=== PATIENT | male | born 1975 ===

== ENCOUNTER 2020-08-29 15:34 | Emergency (ER) | payer MEDICARE, MEDICAID, SELFPAY ==
--- NOTE | ~2020-08-29 | XR_ITS ---
EXAMINATION: XR HAND, RIGHT CLINICAL INFORMATION: Infection. Evaluate for osteomyelitis, foreign body. COMPARISON: Right hand radiographs dated 12/19/2018. TECHNIQUE: PA, lateral, and oblique views of the right hand. FINDINGS: No acute fracture or dislocation. Normal carpal alignment. No osseous erosion or periosteal reaction. No abnormal soft tissue calcification. No radiopaque foreign body. Soft tissue swelling interposed between the 1st and 2nd metacarpal. No joint space narrowing or marginal osteophytes. XR/XR hand RT min 3V IMPRESSION: Soft tissue swelling between the 1st and 2nd metacarpals. No radiopaque foreign body. No adjacent osseous abnormality to suggest acute osteomyelitis. Early osteomyelitis may be occult on plain radiographs and if there is clinical concern, MR of the hand without and with contrast could help further evaluate.
[2020-08-29 15:39] VITALS: BP 133/85; PULSE 114; RESP 20; TEMP 36.8; O2SAT 98; BMI 29.7
[2020-08-29] MEDS: Lidocaine HCl 1 % MPF 5 ML VIAL SUBCUT ×2 (17:24→18:23)
--- NOTE | 2020-08-29 18:01 | ED.SKABFB ---
HPI - Skin/Abscess/Foreign Bdy General Chief complaint: Skin/Abscess/Foreign Body Stated complaint: hand swelling Time Seen by Provider: 08/29/20 16:12 History of Present Illness HPI narrative: Patient complains of redness pain and swelling to the back of the right hand with no fever chills, he is IV drug user who injected in that spot several days Related Data Home Medications Medication Instructions Recorded Confirmed hydroxyzine HCl 25 mg tablet mg PO 05/14/20 ibuprofen 600 mg tablet mg PO 05/14/20 pantoprazole 40 mg tablet,delayed mg PO 05/14/20 release Previous Rx's Medication Instructions Recorded clindamycin HCl 300 mg PO Q6H 7 Days #28 cap 08/29/20 doxycycline hyclate 100 mg PO BID 7 Days #14 cap 08/29/20 sulfamethoxazole-trimethoprim 1 tab PO BID #14 tab 09/09/20 [Bactrim DS] Allergies Allergy/AdvReac Type Severity Reaction Status Date / Time No Known Allergies Allergy Verified 09/09/20 19:38 [No Known Allergies*] Review of Systems Review of Systems: Positive for painful redness and swelling to the back of the right hand No fevers no chills no dizziness no weakness no headache no neck pain no chest pain no shortness of breath no numbness weakness or tingling no other rash Yes all other systems are reviewed and are negative PMFSH Past Medical History PMFSH Narrative: Patient is daily IV drug user Source: nursing notes reviewed Medical History Panic disorder Surgical History History of appendectomy Family History Family History Mother No problems noted. Father No problems noted. Social History Social History Alcohol intake: never Patient Tobacco Use Status: Current everyday Tobacco user Use of substances other than those prescribed or required for medical reasons: Yes Substance Use Type: Crack/Cocaine Advance Directives: No Advance Directives Information Provided: No Physical Exam Vital Signs: Vital Signs: Last Vital Signs Temp 98.2 F 08/29/20 15:39 Pulse 114 H 08/29/20 15:39 Resp 20 08/29/20 15:39 BP 133/85 08/29/20 15:39 Pulse Ox 98 08/29/20 15:39 Body Mass Index 29.7 General appearance is no acute distress Head is normocephalic atraumatic Neck is supple Respiratory no distress Extremities full range of motion x4 Right hand the dorsum of the hand is red and swollen with some feeling of fluctuance There is full range of motion in all fingers and in the wrist There is no lymphangitis Course Course Course Narrative: Case discussed with Dr. Cruz who agreed drain abscess and trial of oral antibiotics, no evidence of tenosynovitis X-ray did not show any evidence of osteomyelitis or gas Wound procedure the right hand dorsal abscess is cleansed with Betadine Anesthesia 8 cc 1% lidocaine A 1 cm incision was made with discharge of pus, loculations were broken up with forceps Packing was placed and dressing was applied Discharge Plan Discharge Clinical Impression: Cellulitis, Abscess of right hand Patient Disposition: Home, Self-Care Additional Instructions: Return to ER in 2 days, Monday for a recheck of the wound and removal of packing Return any time for spreading redness, worse pain and swelling, fever, any worse condition any sign of any worse infection any concerns You got a tetanus shot Prescriptions: New clindamycin HCl 300 mg capsule 300 mg PO Q6H 7 Days Qty: 28 RF: 0 doxycycline hyclate 100 mg capsule 100 mg PO BID 7 Days Qty: 14 RF: 0 No Action sulfamethoxazole-trimethoprim [Bactrim DS] 800-160 mg tablet 1 tab PO BID Qty: 14 RF: 0 Interventions: ED Discharge Assessment Last Done: 08/29/20 18:30 Discharge Date/Time: 08/29/20 18:30
[2020-08-29] MEDS: Diphth,Pertus(ACell),Tet Adult 0.5 ML SYRINGE IM (18:23)
[2020-08-29] MEDS: Ibuprofen 600 MG TABLET PO (18:23)
== END 2020-08-29 18:30 | disposition home or self-care (01) ==
PROVIDERS: Emergency Provider Internal Medicine
DX: L02.511 Cutaneous abscess of right hand (principal); L03.113 Cellulitis of right upper limb; M25.441 Effusion, right hand; F11.10 Opioid abuse, uncomplicated; F17.200 Nicotine dependence, unspecified, uncomplicated; Z79.899 Other long term (current) drug therapy; Z71.6 Tobacco abuse counseling
CPT/HCPCS: 10060; 73130; 87071; 87205; 90471; 90715; 96372; 99284

== ENCOUNTER 2020-09-09 17:30 | Emergency (ER) | payer MEDICARE, MEDICAID, SELFPAY ==
[2020-09-09 19:34] VITALS: BP 133/93; PULSE 93; RESP 16; TEMP 36.3; O2SAT 96; BMI 29.9
--- NOTE | 2020-09-09 20:02 | ED.SKABFB ---
HPI - Skin/Abscess/Foreign Bdy General Chief complaint: Skin/Abscess/Foreign Body Stated complaint: cysts? Time Seen by Provider: 09/09/20 19:57 Source: patient Mode of arrival: ambulatory Limitations: no limitations History of Present Illness HPI narrative: patient shoots heroin, still using seen last week and had multiple I&D. Now for wound check and a new area that he used. complaint: abscess/boil Onset (ago): week(s) Tetanus up to date: yes Location: LUE and RUE Severity: mild Relieving factors: none Exacerbating factors: none Related Data Home Medications Medication Instructions Recorded Confirmed hydroxyzine HCl 25 mg tablet mg PO 05/14/20 ibuprofen 600 mg tablet mg PO 05/14/20 pantoprazole 40 mg tablet,delayed mg PO 05/14/20 release Previous Rx's Medication Instructions Recorded clindamycin HCl 300 mg PO Q6H 7 Days #28 cap 08/29/20 doxycycline hyclate 100 mg PO BID 7 Days #14 cap 08/29/20 sulfamethoxazole-trimethoprim 1 tab PO BID #14 tab 09/09/20 [Bactrim DS] Allergies Allergy/AdvReac Type Severity Reaction Status Date / Time No Known Allergies Allergy Verified 09/09/20 19:38 [No Known Allergies*] Review of Systems Constitutional: Constitutional: Reports no additional constitutional complaints Eyes: Eyes: Reports no additional eye complaints ENT: Denies dizziness Cardiovascular: Cardiovascular: Reports no additional cardiovascular complaints Respiratory: Respiratory: Reports as per HPI Gastrointestinal: Gastrointestinal: Reports no additional gastrointestinal complaints Musculoskeletal: Musculoskeletal: Reports no additional musculoskeletal complaints Integumentary/Breasts: Skin/Breast: Denies rash Neurologic: Reports system reviewed and no additional complaints, except as documented, Denies dizziness and Denies Sensory deficit (Neuro) Psychiatric: Psychiatric: Denies anxiety PMF Past Medical History Medical History Panic disorder Surgical History History of appendectomy Family History Family History Mother No problems noted. Father No problems noted. Social History Social History Alcohol intake: never Advance Directives: No Advance Directives Information Provided: No Physical Exam Vital Signs: Vital Signs: Last Vital Signs Temp 97.3 F 09/09/20 19:34 Pulse 93 09/09/20 19:34 Resp 16 09/09/20 19:34 BP 133/93 H 09/09/20 19:34 Pulse Ox 96 09/09/20 19:34 Body Mass Index 29.9 Const: General: healthy appearing Nutritional Appearance: average body habitus Orientation/consciousness: oriented to person and patient oriented x3 Limitations: no limitations HENMT: Head: Yes normal to inspection Ears: external ears normal General nose exam: Normal external nose present Mouth: Normal oral and palatal mucosa present and oropharynx normal Throat: Yes posterior oropharynx normal Eyes: General: appearance normal, both eyes and all related structures Neck: Other: supple Neck: Yes normal visual inspection Chest: Chest palpation & inspection: normal inspection of the chest Resp: Auscultation: clear to auscultation bilaterally Cardio: Jugular venous distension: no JVD Rate: regular rate Rhythm: regular rhythm Heart sounds: S1 normal heart sound present and S2 normal heart sound present GI: Inspection: Yes normal to inspection Palpation (GI): Soft to palpation, nontender and No hepatosplenomegaly present Auscultation: normal bowel sounds : General: Yes no CVA tenderness Back/Spine/Pelvis: Back: no CVA tenderness Skin: Other: right hand with small serous drainging wound no pus, left forearm with likely hematoma, no fluctuance Neuro: General: oriented to person and patient oriented x3 Cranial nerves: Yes CN's II-XII intact bilaterally Motor exam (neuro): 5/5 motor strength present throughout Sensory Exam: No Sensory deficit (Neuro) Extrem: General: Yes normal to inspection Psych: Appearance: grossly normal Course Course Course Narrative: bedside ultrasound showed no collection, no abscess. Will dc patient on bactrim Discharge Plan Discharge Clinical Impression: Intravenous drug abuse Patient Disposition: Home, Self-Care Prescriptions: New sulfamethoxazole-trimethoprim [Bactrim DS] 800-160 mg tablet 1 tab PO BID Qty: 14 RF: 0 No Action clindamycin HCl 300 mg capsule 300 mg PO Q6H 7 Days Qty: 28 RF: 0 doxycycline hyclate 100 mg capsule 100 mg PO BID 7 Days Qty: 14 RF: 0 Referrals: [facility] [Primary Care Provider] - 1 week
== END 2020-09-09 20:42 | disposition home or self-care (01) ==
PROVIDERS: Emergency Provider Emergency Medicine
DX: F19.10 Other psychoactive substance abuse, uncomplicated (principal); F17.210 Nicotine dependence, cigarettes, uncomplicated
CPT/HCPCS: 99283; 99284

== ENCOUNTER 2021-08-25 09:33 | Outpatient (REF) | payer MEDICARE, MEDICAID, SELFPAY ==
--- NOTE | ~2021-08-25 | XR_ITS ---
EXAMINATION: XR ABDOMEN KUB CLINICAL INDICATION: Renal calculus. COMPARISON: 07/26/2017. TECHNIQUE: AP view of the abdomen. FINDINGS: No convincing evidence of radiopaque calculus. Exam is limited from overlying stool in the bowel. Surgical clips in the right upper quadrant. XR/XR KUB IMPRESSION: No evidence for radiopaque calculus overlying the kidneys though limited visualization from overlying stool.
[2021-08-25 10:55] LABS: Appearance Urine HAZY; Color Urine YELLOW; Glucose Urine UA NEG (NEG); Leukocyte Esterase Urine NEG (NEG); Nitrite Urine NEG (NEG); UACC Culture Trigger NO; Urine Blood TRACE (NEG); Urine Ketones NEG (NEG); Urine Protein NEG (NEG-TRACE)
[2021-08-25 11:05] LABS: Hematocrit 47.1 % (42.0-52.0); Hemoglobin 15.6 g/dl (14.0-18.0); Mean Corpuscular HGB Conc 33.1 g/dl (31.0-36.0); Mean Corpuscular Hemoglobin 30.8 pg (27.0-33.0); Mean Corpuscular Volume 92.9 fL (80.0-98.0); Platelet Count 254 X10*3/uL (160-400); Red Blood Count 5.07 X10*6/uL (4.60-5.80); Red Cell Distribution Width 12.4 % (11.0-16.0); White Blood Count 5.1 X10*3/uL (4.8-10.8)
[2021-08-25 11:23] LABS: RBC Urine 0-2 /HPF (0); WBC Urine 0-2 /HPF (0-4)
[2021-08-25 11:51] LABS: Alanine Aminotransferase 228 U/L (0-40); Albumin Level 4.7 g/dL (3.5-5.0); Alkaline Phosphatase 224 U/L (39-117); Anion Gap 14 (12-20); Aspartate Amino Transferase 141 U/L (5-37); Bilirubin Direct 0.4 mg/dL (0.0-0.5); Bilirubin Total 0.8 mg/dL (0.0-1.0); Blood Urea Nitrogen 15 mg/dL (9-16); Calcium 10.2 mg/dL (8.4-10.2); Carbon Dioxide 28 mmol/L (22-29); Chloride 100 mmol/L (96-108); Estimated Glomerular Filt Rate > 60; Glucose Random 109 mg/dL (60-115); Potassium 4.4 mmol/L (3.3-5.1); Sodium 138 mmol/L (135-145); Total Protein 8.6 g/dL (6.5-8.0)
== END 2021-08-25 09:34 | disposition home or self-care (01) ==
LOC: HO.XRAY 09:33
PROVIDERS: PCP Physician Assistant; Visit Provider Physician Assistant
DX: N20.0 Calculus of kidney (principal)
CPT/HCPCS: 36415; 74018; 80048; 80076; 81001; 85027

== ENCOUNTER 2023-05-10 16:08 | Outpatient (AMB) | payer OTHER, SELFPAY ==
[2023-05-10 16:04] VITALS: BMI 31.6
--- NOTE | 2023-05-10 16:04 | MHC.PC.OV ---
Vital Signs 05/10/23 16:04 Height 5 ft 5 in Weight 190 lb BMI 31.6 Intake Visit Reasons: f/u Anxiety/ COVID + Intake Note: Telehealth video conference with the patient for routine follow-up. Unable to come to the office due to COVID concerns. Director Of Individual Giving Required: No Accompanied by: Spouse Allergies No Known Allergies [No Known Allergies*] Allergy (Verified 05/10/23 16:40) Medication List - Last Reconciled 05/10/23 by Contreras Nielson PA-C citalopram (Celexa) 10 mg PO DAILY 90 days clonazepam 1 mg PO BEDTIME 14 days hydroxyzine HCl 25 mg PO QID ibuprofen 600 mg PO BID PRN 30 days nicotine (polacrilex) mg PO nirmatrelvir-ritonavir 300 mg (150 mg x 2)-100 mg (Paxlovid) take TWO 150 mg tablets of nirmatrelvir with ONE 100 mg tablet of ritonavir twice daily for 5 days PO tamsulosin 0.4 mg PO DAILY 30 days tramadol 50 mg PO BID 5 days Tobacco use date assessed: 05/10/23 Dental Screening Dental Screen Date: 05/10/23 Did you have a dental visit in the last 12 months?: Yes Did you have a dental problem in the last 6 months where you did not have access to dental care?: No Was dental information given to patient?: Patient has dentist HPI f/u Anxiety/ COVID + HPI Details Patient is a 47-year-old male being evaluated today via telephone conference. Recently had COVID in his recovering. Patient has a past medical history significant for generalized anxiety disorder, history of IV drug use, Nephrolithiasis, tobacco dependence,? major depressive disorder, GERD. --Concern> he reports he has a history of low testosterone in the past and was on topical testosterone replacement. He would like to see Urology again to discuss restarting testosterone replacement. Of note has been on chronic opiate for many years now which is likely the reason for his low testosterone. Will recheck testosterone levels Opiate dependency: Now recovery over last 2 months in is going to a methadone clinic. .. REMIGIO: was seeing a mental health therapist last year for short amount of time though has lost follow up. He is on clonazepam 1 mg PRN which he reports his working well for his anxiety. Asking for more though does understand did dependency to benzodiazepines. We will restart sertraline 50 mg and Seroquel 50 mg for sleep. He is interested in restarting mental health therapy and perhaps seeing a psychiatrist in near future. [facility] Medical History (Updated 05/10/23 @ 16:48 by Contreras Nielson PA-C) Elevated liver enzymes Panic disorder Surgical History History of appendectomy Family History Mother No problems noted. Father Prostate cancer Paternal Grandfather Prostate cancer Social History Housing: House Alcohol intake: never Patient Tobacco Use Status: Current everyday Tobacco user Tobacco use type: Cigarette Cigarettes Per Day: 4 e-Cigarette/Vaping Use: Never Used Second Hand Smoke Exposure: Yes Substance Use Type: Crack/Cocaine service: No Current occupational status: disabled Cognitive needs: No Hearing needs: No Vision needs: No Questionnaire PHQ-9 Over the last 2 weeks, how often have you been bothered by any of the following problems? 1. Little interest or pleasure in doing things: nearly every day 2. Feeling down, depressed, or hopeless: nearly every day 3. Trouble falling or staying asleep, or sleeping too much: nearly every day 4. Feeling tired or having little energy: nearly every day 5. Poor appetite or overeating: more than half the days 6. Feeling bad about yourself - or that you are a failure or have let yourself or your family down: more than half the days 7. Trouble concentrating on things, such as reading the newspaper or watching television: nearly every day 8. Moving or speaking so slowly that other people could have noticed. Or the opposite - being so fidgety or restless that you have been moving around a lot more than usual: more than half the days 9. Thoughts that you would be better off or of hurting yourself in some way: several days Total score: 22 Depression Screening Interpretation: Positive Depression Screening Follow-up: Existing condition and Community Mental Health Worker F/U Depression Screening Done: Yes 17844 - PHQ-9 Billing: Yes Source: Developed by Drs. Bruce Aguayo, Tracey Orlando, Ori Connell and colleagues, with an educational kyle from [employer]. Thrive Questionnaire Date Thrive assessed: 05/10/23 I am a: Patient What is your living situation today?: I have a steady place to live Within the past 12 months, did the food you bought not last and you didn't have the money to get more?: Never true Within the past 12 months, did you worry whether your food would run out before you got money to buy more?: Never true Do you have trouble paying for medicines?: No Do you have trouble getting transportation to medical appointments?: No Do you have trouble paying your heating and electricity bill?: No Do you have trouble taking care of your child, family member or friend?: No Do you have trouble with day-to-day activities such as bathing, preparing meals, shopping, managing finances, etc.?: No Are you currently unemployed and looking for a job?: No Are you interested in more education?: No Please select the resources that you would like help with: None Currently or been in a relationship where the following occur: no concerns reported THRIVE Score: 0 AUDIT C Alcohol Use Questionnaire (AUDIT-C) 1. How often do you have a drink containing alcohol?: Never 3. How often do you have six or more drinks on one occasion?: Never Total Score: 0 REMIGIO-7 AMB Questionnaire REMIGIO-7 Date REMIGIO - 7 assessed: 05/10/23 Feeling nervous, anxious, or on edge: 3 = Nearly every day Not being able to stop or control worryin = Nearly every day Worrying too much about different things: 3 = Nearly every day Trouble relaxin = Nearly every day Being so restless that it is hard to sit still: 3 = Nearly every day Becoming easily annoyed or irritable: 2 = More than half the days Feeling afraid as if something awful might happen: 3 = Nearly every day Total REMIGIO-7 score (0-4 normal; 5-9 mild; 10-14 moderate; 15-21 severe): 20 Source: Developed by Tracey Quispe, Ori Connell and colleagues, with an educational kyle from [employer]. REMIGIO-7 Assessment Billing REMIGIO-7 Assessment Tool: REMIGIO-7 Assessment 10271 Review of Systems Const Denies headache(s) Eyes Denies loss of vision ENT Denies vertigo, Denies dizziness, Denies headache(s) and Denies sore throat Card Denies chest pain, Denies leg edema and Denies lightheadedness Resp Reports cough, Denies hemoptysis and Denies wheezing GI Denies abdominal pain, Denies melena, Denies constipation, Denies diarrhea and Denies vomiting Denies dysuria, Denies urinary frequency and Denies urinary urgency Musc Denies arthralgias, Denies joint swelling, Denies numbness and Denies tingling Neuro Denies behavioral changes, Denies vertigo, Denies dizziness, Denies headache(s), Denies loss of vision, Denies memory loss, Denies numbness and Denies tingling Psych Denies anxiety, Denies behavioral changes, Reports depression, Reports difficulty concentrating, Reports irritability, Denies memory loss and Reports panic attacks Roberto/Lymph Denies easy bleeding and Denies easy bruising Aller/Immun Denies wheezing Physical exam (Primary Care) BMI result Body Mass Index 31.6 Tobacco/Smoking Status: Tobacco use Status Tobacco use date assessed 05/10/23 05/10/23 16:15 Patient Tobacco Use Status Current everyday Tobacco 05/10/23 16:07 Tobacco use type Cigarette 05/10/23 16:07 e-Cigarette/Vaping Use Never Used 05/10/23 16:07 Are you ready to quit: No Tobacco cessation counseling provided: Yes Items discussed: Nicotine replacement Relapse Prevention: discussed the importance of a supportive environment, discussed negative mood or depression after quitting, weight gain after smoking is common and discussed dietary, exercise and/or lifestyle changes Number of minutes spent counselin CPT code: 15547 - 4-10 Minutes PHQ-9: PHQ-9 Score PHQ-9: Total score 22 05/10/23 16:54 Depression Screening Interpretation: Positive Depression Screening Follow-up: Existing condition and Community Mental Health Worker F/U Thrive Assessment: Date of Thrive Assessment Date Thrive assessed 05/10/23 05/10/23 16:07 Currently or been in a relationship where the following occur: no concerns reported Telehealth Telehealth Location of provider rendering services: practice address Location of patient: address on file Patient Identification confirmed using: Name, : Yes Telehealth method: video Patient verbally consented to treatment: Yes Patient verbally consented to billing insurance company: Yes Patient informed of any privacy concerns related to visit: Yes Minutes spent on Phone/Video with Pt.: 15 Assessment and Plan Assessment & Plan (1) MDD (major depressive disorder), recurrent episode, moderate: Code(s): F33.1 - Major depressive disorder, recurrent, moderate Plan: Patient's PHQ-9 score positive for depression which has been existing condition for him. He is interested in cognitive behavior therapy and restarting SSRI therapy. Will restart Zoloft 50 mg daily for better mood control. (2) Panic disorder: Comment: 40 min reviewing chart evaluating patient and documenting Code(s): F41.0 - Panic disorder [episodic paroxysmal anxiety] Plan: He reports he continues to episodic episodes of high anxiety. He does report clonazepam is helpful in his asking for more though we had long discussion about dependency in his past history of substance use disorder and patient does understand. Will only give him 14 tablets at a time to use on a very limited emergency use basis. (3) REMIGIO (generalized anxiety disorder): Code(s): F41.1 - Generalized anxiety disorder Plan: Patient continues to suffer with anxiety. Remigio 7 score positive for anxiety which has been existing condition for him. He is interested in cognitive behavioral therapy and restarting SSRI therapy. Was also given Seroquel at night to help him sleep which was effective. (4) Hypogonadism male: Code(s): E29.1 - Testicular hypofunction Plan: Reports he has been told he has low testosterone. Was previously on testosterone topical treatment. Would like to be referred back to urologist to start up testosterone treatment again. Low testosterone levels likely related to his chronic opiate use (5) Opiate dependence: Code(s): F11.20 - Opioid dependence, uncomplicated Qualifiers: Substance use status: in remission Qualified Code(s): F11.21 - Opioid dependence, in remission Plan: Reports he has been clean for street drugs over the last 2 months. Now on methadone clinic (6) Tobacco dependence: Code(s): F17.200 - Nicotine dependence, unspecified, uncomplicated Plan: Patient continues to smoke and does understand he needs to quit. He has found it difficult to do so. Does have nicotine replacement available to him. Orders: Orders Testosterone, Free/Total 02/07/24 E29.1 - Testicular hypofunction Comprehensive [place]. Panel Fast 05/10/23 Z13.1 - Encounter for screening for diabetes mellitus Prostate Specific Antigen Scr 05/10/23 Z12.5 - Encounter for screening for malignant neoplasm of prostate, Z13.1 - Encounter for screening for diabetes mellitus Referrals Counseling Referral F41.1 - Generalized anxiety disorder Urology Referral E29.1 - Testicular hypofunction Medications: New sertraline 50 mg PO DAILY 90 days 90 tabs 1RF F41.1 - Generalized anxiety disorder quetiapine (Seroquel) 50 mg PO BEDTIME 90 days 90 tabs 1RF F41.1 - Generalized anxiety disorder Refilled clonazepam administer 30 minutes before bedtime 1 mg PO BEDTIME 14 days 14 tabs 1RF F41.1 - Generalized anxiety disorder Discontinued citalopram (Celexa) Discontinued Reason: Doctor's Order 10 mg PO DAILY 90 days 90 tabs 1RF F41.1 - Generalized anxiety disorder tramadol Discontinued Reason: Doctor's Order 50 mg PO BID 5 days 10 tabs 0RF pain N20.0 - Calculus of kidney Coding Level of Care Code Tele New Pt Level 4 (69601) Diagnoses MDD (major depressive disorder), recurrent episode, moderate F33.1 Panic disorder F41.0 REMIGIO (generalized anxiety disorder) F41.1 Hypogonadism male E29.1 Opioid dependence in remission F11.21 Substance use status: in remission Tobacco dependence F17.200 Additional Codes REMIGIO-7 Assessment Billing - REMIGIO-7 Assessment Tool: REMIGIO-7 Assessment 57469 ([id number]) Vital Signs *Quality* - CPT code: 05140 - 4-10 Minutes ([id number])
== END 2023-05-10 17:01 | disposition home or self-care (01) ==
LOC: HO.HMGH 16:08
PROVIDERS: PCP Physician Assistant; Visit Provider Physician Assistant
DX: E29.1 Testicular hypofunction (principal); F33.1 Major depressive disorder, recurrent, moderate; F11.21 Opioid dependence, in remission; F41.0 Panic disorder [episodic paroxysmal anxiety]; F41.1 Generalized anxiety disorder; F17.210 Nicotine dependence, cigarettes, uncomplicated
CPT/HCPCS: 99214

== ENCOUNTER 2023-06-02 13:44 | Outpatient (REF) | payer OTHER, SELFPAY ==
[2023-06-02 15:24] LABS: Hematocrit 42.9 % (42.0-52.0); Hemoglobin 14.2 g/dl (14.0-18.0); Mean Corpuscular HGB Conc 33.1 g/dl (31.0-36.0); Mean Corpuscular Hemoglobin 30.6 pg (27.0-33.0); Mean Corpuscular Volume 92.5 fL (80.0-98.0); Mean Platelet Volume 11.1 fL (9.4-12.4); Platelet Count 226 X10*3/uL (160-400); Red Blood Count 4.64 X10*6/uL (4.60-5.80); Red Cell Distribution Width 13.1 % (11.0-16.0); White Blood Count 8.8 X10*3/uL (4.8-10.8)
[2023-06-02 15:37] LABS: Alanine Aminotransferase 65 U/L (0-40); Albumin Level 4.7 g/dL (3.5-5.0); Alkaline Phosphatase 135 U/L (39-117); Anion Gap 14 (12-20); Aspartate Amino Transferase 45 U/L (5-37); Bilirubin Total 0.5 mg/dL (0.0-1.0); Blood Urea Nitrogen 15 mg/dL (9-16); Calcium 10.1 mg/dL (8.4-10.2); Carbon Dioxide 31 mmol/L (22-29); Chloride 100 mmol/L (96-108); Estimated Glomerular Filt Rate > 60; Glucose Fasting 117 mg/dL (60-99); Potassium 4.1 mmol/L (3.3-5.1); Sodium 141 mmol/L (135-145); Total Protein 8.6 g/dL (6.5-8.0)
[2023-06-02 15:56] LABS: Prostate Specific Antigen Scr 0.97 ng/mL (<0.05-4.0)
[2023-06-03 03:38] LABS: Syphilis Screen Nonreactive (Nonreactive)
[2023-06-03 03:57] LABS: HIV AB/AG Nonreactive (Nonreactive); HIV Num 1 0.06 S/CO (0.00-0.99)
[2023-06-07 14:34] LABS: Testosterone, Free 6.5 pg/mL (35.0-155.0); Testosterone, Total 70 ng/dL (250-1100)
== END 2023-06-02 13:45 | disposition home or self-care (01) ==
LOC: HO.LAB 13:44
PROVIDERS: PCP Physician Assistant; Visit Provider Physician Assistant
DX: Z13.1 Encounter for screening for diabetes mellitus (principal); Z11.3 Encounter for screening for infections with a predominantly sexual mode of transmission; Z12.5 Encounter for screening for malignant neoplasm of prostate; N50.811 Right testicular pain; N50.812 Left testicular pain; E29.1 Testicular hypofunction
CPT/HCPCS: 36415; 80053; 84153; 84402; 84403; 85027; 86780; 87389

== ENCOUNTER 2023-06-07 14:02 | Emergency (ER) | payer OTHER, SELFPAY ==
--- NOTE | ~2023-06-07 | CT_ITS ---
EXAMINATION: CT ABDOMEN AND PELVIS WITHOUT CONTRAST CLINICAL INFORMATION: Left flank pain history of stone COMPARISON: [facility] radiograph from 08/25/2021, ultrasound abdomen from 09/01/2017 CT abdomen and pelvis from 12/22/2016 TECHNIQUE: Multidetector volumetric imaging was performed from the superior aspect of the liver through the pubic symphysis. Sagittal and coronal reformatted images were obtained on the technologist's workstation. This CT examination was performed using dose optimization techniques as appropriate, variously including the following: *Automated exposure control *Adjustment of mA and/or kV according to patient size (this includes techniques or standardized protocols for targeted exams where dose is matched to indication/reason for exam; i.e. extremities or head) *Use of iterative reconstruction technique DLP: 570 mGy-cm FINDINGS: LUNG BASES: Bibasilar atelectasis. No pneumothorax. No large pleural effusion. LIVER, GALLBLADDER, AND BILIARY TREE: Liver is borderline enlarged. Focal hypodense focus adjacent to the falciform ligament may reflect a region of focal fatty infiltration. No focal hepatic lesion or biliary ductal dilatation is present. The gallbladder is surgically absent. Common bile duct measures up to 11 mm. PANCREAS: Unremarkable. SPLEEN: Normal punctate calcified granuloma throughout the splenic parenchyma. ADRENAL GLANDS: Unremarkable. KIDNEYS AND URETERS: Right-sided nephrolithiasis the largest measuring up to 3 mm in the right renal interpolar/upper pole region without hydronephrosis. Left-sided nephrolithiasis measuring up to 2 mm without hydronephrosis. BLADDER: Unremarkable. GASTROINTESTINAL TRACT: Small hiatal hernia. Mild fecal loading of the colon. Few mildly prominent loops of small bowel in the left upper abdomen. The small and large bowel are unremarkable. The appendix is not definitively visualized.. ABDOMINAL WALL: Small hiatal hernia. Small fat filled bilateral inguinal hernias. LYMPH NODES: Multiple mildly prominent though nonenlarged bilateral inguinal and mesenteric lymph nodes are noted. No enlarged lymph nodes per size criteria. VASCULAR: Abdominal aorta is nonaneurysmal. PELVIC VISCERA: Prostate measures 3.9 cm with calcifications within its body. OSSEOUS STRUCTURES: Multilevel degenerative changes of the thoracolumbar and lumbosacral spine with large anterior spur along the anterior superior endplate of L4 CT/CT abdomen pelvis wo IV con IMPRESSION: 1. No acute process of the abdomen or pelvis identified. 2. Bilateral nephrolithiasis without hydronephrosis. 3. Few mildly prominent loops of small bowel in the left upper abdomen without evidence of obstruction. 4. Multiple mildly prominent though nonenlarged bilateral inguinal and mesenteric lymph nodes are noted. 5. Liver is borderline enlarged. Focal hypodense focus adjacent to the falciform ligament may reflect a region of focal fatty infiltration. 6. Status post cholecystectomy. Common bile duct measures up to 11 mm. 7. Prostate measures 3.9 cm with calcifications within its body. 8. Small hiatal hernia. Small fat filled bilateral inguinal hernias.
[2023-06-07 14:33] VITALS: BP 142/87; PULSE 90; RESP 18; TEMP 37.7; O2SAT 95; BMI 30.8
--- NOTE | 2023-06-07 14:44 | ED.GENADULT ---
HPI - General Adult General Chief complaint: Abdominal Pain Stated complaint: Abd pain, vomiting 3 days Time Seen by Provider: 06/07/23 20:02 Source: patient Mode of arrival: ambulatory Limitations: no limitations History of Present Illness HPI narrative: Patient vomiting for last 2 days able to hold down any food or liquids also complaining of pain in the left upper abdomen with history of kidney stone no flank no hematuria no dysuria no fever or chills Related Data Home Medications Medication Instructions Recorded Confirmed hydroxyzine HCl 25 mg tablet 25 mg PO QID 05/10/23 05/10/23 nicotine (polacrilex) 4 mg gum mg PO 05/10/23 05/10/23 Previous Rx's Medication Instructions Recorded ibuprofen 600 mg tablet 600 mg PO BID PRN pain 30 days #30 04/02/23 tabs tamsulosin 0.4 mg capsule 0.4 mg PO DAILY 30 days #30 caps 05/01/23 clonazepam 1 mg tablet 1 mg PO BEDTIME 14 days #14 tabs 05/10/23 quetiapine 50 mg tablet (Seroquel) 50 mg PO BEDTIME 90 days #90 tabs 05/10/23 sertraline 50 mg tablet 50 mg PO DAILY 90 days #90 tabs 05/10/23 dicyclomine 20 mg tablet 20 mg PO TID PRN abdominal pain 06/07/23 #15 tabs ondansetron 4 mg disintegrating 4 mg PO Q6-8H PRN nausea and 06/07/23 tablet vomiting #7 tabs amoxicillin 875 mg-potassium 1 tab PO BID 7 days #14 tabs 06/22/23 clavulanate 125 mg tablet prednisone 10 mg tablet 10 mg PO DIRECTED 9 days #18 06/22/23 tabs Allergies Allergy/AdvReac Type Severity Reaction Status Date / Time No Known Allergies Allergy Verified 06/19/23 16:22 [No Known Allergies*] Review of Systems Review of Systems: Yes all other systems are reviewed and are negative PMFSH Past Medical History Medical History Elevated liver enzymes Panic disorder Surgical History History of appendectomy Family History Family History Mother No problems noted. Father Prostate cancer Paternal Grandfather Prostate cancer Social History Social History Housing: House Alcohol intake: never Patient Tobacco Use Status: Current everyday Tobacco user Tobacco use type: Cigarette Cigarettes Per Day: 4 e-Cigarette/Vaping Use: Never Used Second Hand Smoke Exposure: Yes Substance Use Type: Crack/Cocaine Advance Directives: No Advance Directives Information Provided: No service: No Current occupational status: disabled Cognitive needs: No Hearing needs: No Vision needs: No Physical Exam ED Vital Signs: Vital Signs - 24 hr 06/07/23 14:33 06/07/23 20:12 06/07/23 23:04 Temperature 99.8 F 97.8 F 98.0 F Pulse Rate 90 72 71 Respiratory Rate 18 18 14 Blood Pressure 142/87 H 132/89 145/82 H Pulse Oximetry 95 97 100 Oxygen Delivery Method Room Air Room Air Room Air BMI result Body Mass Index 30.8 Appearance: Alert. Oriented X3. No acute distress. Eyes: No pallor or icterus ENT: Pharynx normal. Oral Mucosa moist Neck: Normal inspection. Neck supple. CVS: Normal heart rate and rhythm. Pulses normal. Respiratory: No respiratory distress. Equal air entry bilateral, no wheezing/rales/rhonchi Abdomen: Soft and tenderness left upper abdomen Bowel sounds are present, no mass palpable, no CVA tenderness Skin: Skin warm and dry. Normal skin color. Normal skin turgor. Extremities: No lower extremity edema. No calf tenderness Neuro: Oriented X 3. No motor deficit. Course Course Course Narrative: This is a rapid medical exam: Additional HPI, ROS, PE not included below will be deferred to primary provider. Complains of a 3 day history of nausea and vomiting with difficulty in tolerating p.o. intake with generalized abdominal pain. He also reports rhinorrhea and fever and feels as if he may have a sinus infection. He denies any shortness of breath, chest pain, constipation, diarrhea, melena, BRBPR, headache, vision changes Medications Administered Discontinued Medications Generic Name Dose Route Start Last Admin Trade Name Freq PRN Reason Stop Dose Admin Amoxicillin/Clavulanate Potassium 875 mg 06/07/23 23:58 06/08/23 00:02 Amoxicillin/Potassium Clav 875 Mg Tablet PO 06/07/23 23:59 875 mg ONCE ONE Administration Sodium Chloride 1,000 mls @ 999 mls/hr 06/07/23 20:55 06/07/23 23:00 Ns IV 06/07/23 21:55 Infused .Q1H1M ONE Infusion Ketorolac Tromethamine 30 mg 06/07/23 20:55 06/07/23 21:38 Ketorolac Tromethamine 30 Mg/Ml Vial IVPUSH 06/07/23 20:56 30 mg ONCE ONE Administration Ondansetron HCl 4 mg 06/07/23 20:55 06/07/23 21:37 Ondansetron Hcl 4 Mg/2 Ml Vial IVPUSH 06/07/23 20:56 4 mg ONCE ONE Administration Medical Decision Making Medical Decision Making [facility] Narrative: Patient has acute gastroenteritis with sinus infection CT scan negative for acute pathology discharge patient home on Augmentin for sinusitis and Zofran Differential Diagnosis Differential Diagnoses: The differential diagnosis associated with the presentation includes Lab Data [facility] Lab Attestation statement: I reviewed the patient's lab results. 06/07/23 16:59 06/07/23 15:50 Labs: Lab Results 06/07/23 06/07/23 06/07/23 Range/Units 14:47 15:50 16:59 WBC 4.4 L (4.8-10.8) X10*3/uL RBC 4.65 (4.60-5.80) X10*6/uL Hgb 14.2 (14.0-18.0) g/dl Hct 42.0 (42.0-52.0) % MCV 90.3 (80.0-98.0) fL MCH 30.5 (27.0-33.0) pg MCHC 33.8 (31.0-36.0) g/dl RDW 13.1 (11.0-16.0) % Plt Count 123 L D (160-400) X10*3/uL MPV 11.4 (9.4-12.4) fL Immature Gran % (Auto) 0.5 H (0.0-0.4) % Neut % (Auto) 67.8 (45-73) % Lymph % (Auto) 22.9 (20-40) % [place] % (Auto) 5.4 (2-11) % Eos % (Auto) 3.2 (0-4) % Baso % (Auto) 0.2 (0-2) % Lymph # (Auto) 1.0 L (1.2-4.9) X10*3/uL [place] # (Auto) 0.2 (0.1-1.2) X10*3/uL Eos # (Auto) 0.1 (0.0-0.4) X10*3/uL Baso # (Auto) 0.0 (0.0-0.2) X10*3/uL Abs Immat Gran (auto) 0.02 (0.00-0.03) X10*3/uL Absolute Neuts (auto) 3.0 (2.0-8.3) x10*3/uL Absolute Nucleated RBC 0.000 (0.0-0.012) X10*3/uL Nucleated RBC % (auto) 0.0 (0.0-0.2) /100WBC Smear Tech's Comments VERIFIED Sodium 137 (135-145) mmol/L Potassium 4.4 (3.3-5.1) mmol/L Chloride 105 (96-108) mmol/L Carbon Dioxide 25 (22-29) mmol/L Anion Gap 11 L (12-20) BUN 12 (9-16) mg/dL Creatinine 0.79 (0.5-1.4) mg/dL Estim Creat Clear Calc 113.9 Estimated GFR > 60 Fasting Glucose 100 H (60-99) mg/dL Calcium 9.3 D (8.4-10.2) mg/dL Magnesium 1.9 (1.6-2.6) mg/dL Total Bilirubin 0.5 (0.0-1.0) mg/dL AST 59 H (5-37) U/L ALT 73 H (0-40) U/L Alkaline Phosphatase 127 H (39-117) U/L Total Protein 7.6 (6.5-8.0) g/dL Albumin 4.1 (3.5-5.0) g/dL Influenza Type A (PCR) NEGATIVE (Negative) Influenza Type B (PCR) NEGATIVE (Negative) RSV RNA Qual (PCR) NEGATIVE (Negative) SARS-CoV-2 RNA (RT-PCR) NEGATIVE (Negative) Discharge Plan Discharge Clinical Impression: Nausea & vomiting, Sinusitis, acute Patient Disposition: Home, Self-Care Instructions: Rhinosinusitis (ED), Acute Nausea and Vomiting (ED) Additional Instructions: Drink plenty of fluids Take medicine for nausea as prescribed as needed Medicine for abdominal cramps as prescribed Follow with PCP if not better Prescriptions: New dicyclomine 20 mg tablet 20 mg PO TID PRN (Reason: abdominal pain) Qty: 15 0RF ondansetron 4 mg tablet,disintegrating 4 mg PO Q6-8H PRN (Reason: nausea and vomiting) Qty: 7 0RF No Action ibuprofen 600 mg tablet 600 mg PO BID PRN (Reason: pain) 30 Days Qty: 30 0RF tamsulosin 0.4 mg capsule 0.4 mg PO DAILY 30 Days Qty: 30 2RF prednisone 10 mg tablet 10 mg PO DIRECTED 9 Days Qty: 18 0RF Rx Instructions: take 3 tabs x 3 days , take 2 tabs x 3 days, take 1 tabs x 3 days. amoxicillin-pot clavulanate 875-125 mg tablet 1 tab PO BID 7 Days Qty: 14 0RF nicotine (polacrilex) 4 mg gum PO hydroxyzine HCl 25 mg tablet 25 mg PO QID clonazepam 1 mg tablet 1 mg PO BEDTIME 14 Days Qty: 14 1RF Rx Instructions: administer 30 minutes before bedtime sertraline 50 mg tablet 50 mg PO DAILY 90 Days Qty: 90 1RF quetiapine [Seroquel] 50 mg tablet 50 mg PO BEDTIME 90 Days Qty: 90 1RF Interventions: ED Discharge Assessment Last Done: 06/07/23 23:57 Discharge Date/Time: 06/08/23 00:06
[2023-06-07 15:39] LABS: Influenza A PCR NEGATIVE (Negative); Influenza B PCR NEGATIVE (Negative); Resp Syncy Virus RNA Qual PCR NEGATIVE (Negative); SARS COV2 PCR INHOUSE NEGATIVE (Negative)
[2023-06-07 16:11] LABS: Alanine Aminotransferase 73 U/L (0-40); Albumin Level 4.1 g/dL (3.5-5.0); Alkaline Phosphatase 127 U/L (39-117); Anion Gap 11 (12-20); Aspartate Amino Transferase 59 U/L (5-37); Bilirubin Total 0.5 mg/dL (0.0-1.0); Blood Urea Nitrogen 12 mg/dL (9-16); Calcium 9.3 mg/dL (8.4-10.2); Carbon Dioxide 25 mmol/L (22-29); Chloride 105 mmol/L (96-108); Creatinine Clr Calc Pharmacy 113.9; Estimated Glomerular Filt Rate > 60; Glucose Fasting 100 mg/dL (60-99); Magnesium 1.9 mg/dL (1.6-2.6); Potassium 4.4 mmol/L (3.3-5.1); Sodium 137 mmol/L (135-145); Total Protein 7.6 g/dL (6.5-8.0)
[2023-06-07 17:38] LABS: Basophils Percent Auto 0.2 % (0-2); Eosinophils Absolute Auto 0.1 X10*3/uL (0.0-0.4); Eosinophils Percent Auto 3.2 % (0-4); Hemoglobin 14.2 g/dl (14.0-18.0); Imm Gran Abs Auto 0.02 X10*3/uL (0.00-0.03); Imm Gran Pct Auto 0.5 % (0.0-0.4); Lymphocytes Percent Auto 22.9 % (20-40); MANUAL DIFF FLAG SCAN; Mean Corpuscular HGB Conc 33.8 g/dl (31.0-36.0); Mean Corpuscular Hemoglobin 30.5 pg (27.0-33.0); Mean Corpuscular Volume 90.3 fL (80.0-98.0); Mean Platelet Volume 11.4 fL (9.4-12.4); Monocytes Absolute Auto 0.2 X10*3/uL (0.1-1.2); Monocytes Percent Auto 5.4 % (2-11); Neutrophils Percent Auto 67.8 % (45-73); PLT CLUMP 1; Red Blood Count 4.65 X10*6/uL (4.60-5.80); Red Cell Distribution Width 13.1 % (11.0-16.0); SCAN SMEAR FLAG 1
[2023-06-07 17:58] LABS: White Blood Count 4.4 X10*3/uL (4.8-10.8)
[2023-06-07 17:59] LABS: Platelet Count 123 X10*3/uL (160-400); SLIDE REVIEW VERIFIED
[2023-06-07 20:12] VITALS: BP 132/89; PULSE 72; RESP 18; TEMP 36.6; O2SAT 97
[2023-06-07] MEDS: 0.9 % Sodium Chloride 1,000 ML 999 ML IV (21:34)
[2023-06-07] MEDS: ondansetron HCL 4 MG/2 ML VIAL IVPUSH (21:37)
[2023-06-07] MEDS: Ketorolac Tromethamine 30 MG/ML VIAL IVPUSH (21:38)
[2023-06-07 23:04] VITALS: BP 145/82; PULSE 71; RESP 14; TEMP 36.7; O2SAT 100
[2023-06-08] MEDS: Amoxicillin/Potassium Clav 875 MG TABLET PO (00:02)
== END 2023-06-08 00:06 | disposition home or self-care (01) ==
PROVIDERS: Emergency Provider Internal Medicine
DX: R11.2 Nausea with vomiting, unspecified (principal); J01.90 Acute sinusitis, unspecified; Z11.52 Encounter for screening for COVID-19; Z20.828 Contact with and (suspected) exposure to other viral communicable diseases
CPT/HCPCS: 0241U; 36415; 74176; 80053; 83735; 85025; 96361; 96374; 96375; 99284; J1885; J2405

== ENCOUNTER 2023-06-19 15:48 | Emergency (ER) | payer OTHER, SELFPAY ==
[2023-06-19 16:23] VITALS: BP 132/93; PULSE 81; RESP 18; TEMP 36.7; O2SAT 97; BMI 31.6
--- NOTE | 2023-06-19 16:25 | ECG_ITS ---
Test Reason : ABDOMINAL PAIN Blood Pressure : / mmHG Vent. Rate : 071 BPM Atrial Rate : 071 BPM P-R Int : 158 ms QRS Dur : 084 ms QT Int : 406 ms P-R-T Axes : 031 060 039 degrees QTc Int : 441 ms Normal sinus rhythm Normal ECG When compared with ECG of 28-DEC-2017 16:25, No significant change was found Referred By: Daniela Riley Electronically Signed By:EVANS DAVIS
--- NOTE | 2023-06-19 16:25 | ED_ITS ---
HPI - General Adult General Chief complaint: Abdominal Pain Stated complaint: left abd pain Time Seen by Provider: 06/19/23 19:06 Source: patient Mode of arrival: ambulatory Limitations: no limitations History of Present Illness HPI narrative: Patient is a 47 year old assigned male at with a history of JIMENEZ presenting to the emergency department today with left sided abdominal pain, cough, nausea, and vomiting. Patient states that over the last day he has had left sided abdominal pain, cough, nausea, and vomiting. Patient denies any dizziness, lightheadedness, fever, chills, blurry vision, double vision, loss of vision, chest pain, difficulty breathing, shortness of breath, back pain, night sweats, pain with urination, increased urinary frequency, increased urinary urgency, blood in his urine or stool, syncope or a near syncopal episode, recent trauma or falls, bowel incontinence, bladder incontinence, bowel retention, bladder retention, or any other complaints at this time. Onset (ago): day(s) Location: abdomen and left Severity: mild Severity scale (1-10): 3 Quality: aching Pain Consistency: constant Relieving factors: none Exacerbating factors: none Associated symptoms: cough Treatments prior to arrival: none Related Data Home Medications Medication Instructions Recorded Confirmed hydroxyzine HCl 25 mg tablet 25 mg PO QID 05/10/23 05/10/23 nicotine (polacrilex) 4 mg gum mg PO 05/10/23 05/10/23 Previous Rx's Medication Instructions Recorded ibuprofen 600 mg tablet 600 mg PO BID PRN pain 30 days #30 04/02/23 tabs nirmatrelvir 300 mg (150 mg See Rx Instructions PO .COMPLEX 04/26/23 x2)-ritonavir 100 mg tablet,dose #30 ea pack (Paxlovid) tamsulosin 0.4 mg capsule 0.4 mg PO DAILY 30 days #30 caps 05/01/23 clonazepam 1 mg tablet 1 mg PO BEDTIME 14 days #14 tabs 05/10/23 quetiapine 50 mg tablet (Seroquel) 50 mg PO BEDTIME 90 days #90 tabs 05/10/23 sertraline 50 mg tablet 50 mg PO DAILY 90 days #90 tabs 05/10/23 amoxicillin 875 mg-potassium 1 tab PO BID #20 tabs 06/07/23 clavulanate 125 mg tablet dicyclomine 20 mg tablet 20 mg PO TID PRN abdominal pain 06/07/23 #15 tabs ondansetron 4 mg disintegrating 4 mg PO Q6-8H PRN nausea and 06/07/23 tablet vomiting #7 tabs Allergies Allergy/AdvReac Type Severity Reaction Status Date / Time No Known Allergies Allergy Verified 06/19/23 16:22 [No Known Allergies*] Review of Systems 2 Constitutional: Constitutional: Reports no additional constitutional complaints, Denies chills, Denies fever(s) and Denies night sweats Eyes: Eyes: Reports no additional eye complaints, Denies blurry vision, Denies change in vision, Denies diplopia, Denies eye discharge, Denies loss of vision and Denies eye pain ENT: Denies dizziness Cardiovascular: Cardiovascular: Reports no additional cardiovascular complaints, Denies chest pain, Denies lightheadedness, Denies Loss of Consciousness and Denies dyspnea Respiratory: Respiratory: Reports no additional respiratory complaints, Reports cough and Denies dyspnea Gastrointestinal: Gastrointestinal: Reports no additional gastrointestinal complaints, Reports abdominal pain, Denies melena, Denies hematochezia, Denies change in bowel habits, Denies change in stool character, Reports nausea and Reports vomiting Genitourinary: Genitourinary: Reports no additional male genitourinary complaints, Denies hematuria, Denies oliguria, Denies difficulty urinating, Denies dysuria, Denies urinary frequency, Denies urinary hesitancy, Denies urinary incontinence and Denies urinary urgency Musculoskeletal: Musculoskeletal: Reports no additional musculoskeletal complaints, Denies numbness and Denies tingling Neurologic: Denies dizziness, Denies loss of vision, Denies numbness and Denies tingling Psychiatric: Psychiatric: Reports no additional psychiatric complaints Endocrine: Endocrine: Reports no additional endocrine complaints Hematologic/Lymphatic: Hematologic/Lymphatic: Reports no additional hematologic/lymphatic complaints Allergic/Immunologic: Allergic/Immunologic: Reports no additional allergic/immunologic complaints PMFSH Past Medical History Attestation statement: The following information was validated with the patient. Source: old records reviewed and nursing notes reviewed Medical History Elevated liver enzymes Panic disorder Surgical History History of appendectomy Family History Family History Mother No problems noted. Father Prostate cancer Paternal Grandfather Prostate cancer Social History Social History Housing: House Alcohol intake: never Patient Tobacco Use Status: Current everyday Tobacco user Tobacco use type: Cigarette Cigarettes Per Day: 4 e-Cigarette/Vaping Use: Never Used Second Hand Smoke Exposure: Yes Substance Use Type: Crack/Cocaine Advance Directives: No Advance Directives Information Provided: No service: No Current occupational status: disabled Cognitive needs: No Hearing needs: No Vision needs: No Physical Exam ED Vital Signs: Vital Signs - 24 hr 06/19/23 16:23 06/19/23 19:04 06/19/23 19:09 Temperature 98.1 F 98.5 F 0 F L Pulse Rate 81 92 0 L Respiratory Rate 18 19 0 L Blood Pressure 132/93 H 173/82 H 0/0 L Pulse Oximetry 97 98 Oxygen Delivery Method Room Air Room Air BMI result Body Mass Index 31.6 Const General: cooperative, no acute distress, alert and awake Nutritional Appearance: well nourished Orientation/consciousness: patient oriented x3 Limitations: no limitations HENMT Head: Yes normal to inspection and Yes atraumatic Ears: hearing grossly normal bilaterally and external ears normal General nose exam: Normal external nose present, no nasal discharge noted and no epistaxis Face and sinus: Yes normal facial exam, No abrasion and No laceration Mouth: Normal oral and palatal mucosa present, no drooling and no muffled voice Eyes General: appearance normal, both eyes and all related structures Periorbital: periorbital findings normal Eyelids: Yes eyelids normal Conjunctivae: conjunctivae normal Pupils: Equal, round and reactive pupils present EOM: EOMs intact bilaterally Neck Neck: Yes normal visual inspection, Yes full ROM and Yes no lymphadenopathy Chest Chest palpation & inspection: normal inspection of the chest Resp Effort & Inspection: normal respiratory effort and able to speak in complete sentences GI Inspection: Yes normal to inspection Neuro General: patient oriented x3 and moves all extremities Cranial nerves: Yes Equal, round and reactive pupils present Cognition (Neuro): normal cognition Motor exam (neuro): 5/5 motor strength present throughout Sensory Exam: Normal double simultaneous stimulation for sensation Coordination: [id number] test normal Extrem General: Yes normal to inspection, Yes full ROM and Yes capillary refill normal Psych Appearance: grossly normal Mental Status: mental status grossly normal Affect: normal affect Attitude: cooperative Thought process: Normal thought process present Thought content: Normal thought content present Insight: Good insight present (Psych) Course Course Course Narrative: RME performed by Daniela Riley PA-C. Patient is a 47 year old assigned male at presenting to the emergency department with abdominal pain, nausea, and vomiting. 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 Labs ordered. Patient placed back in the waiting room pending room availability and results. Medical Decision Making Medical Decision Making MDM Narrative: Patient is a 47 year old assigned male at with a history of JIMENEZ presenting to the emergency department today with abdominal pain, nausea, vomiting, and a cough. Patient's physical exam was unremarkable. Patient's blood work was unremarkable. Patient's EKG was unremarkable. Patient's COVID-19 test was positive. I explained my physical exam findings as well as all test results to the patient. I answered all questions asked by the patient. I stressed the importance of the patient taking his medication as prescribed. I stressed the importance of the patient following up with his primary care provider. I stressed the importance of the patient returning to the emergency department immediately if his symptoms were to worsen or if he were to develop any dizziness, shortness of breath, difficulty breathing, chest pain, blurry vision, loss of vision, nausea, vomiting, abdominal pain, fever, chills, back pain, or any other complaints. Patient verbalized agreement and understanding with this treatment plan and discharge. Differential Diagnosis Differential Diagnoses: The differential diagnosis associated with the presentation includes Abdominal pain COVID-19 Influenza RSV Admission/Observation Consideration of admission/observation: Escalation of care including admission/observation considered Patient would have been admitted to the hospital had his work up had any findings where hospital admission was appropriate and his clinical presentation warranted hospital admission. Lab Data [facility] Lab Attestation statement: I reviewed the patient's lab results. My interpretation of these results are in the [facility] Rationale portion of this note. 06/19/23 17:03 06/19/23 17:03 Labs: Lab Results 06/19/23 Range/Units 17:03 WBC 5.1 (4.8-10.8) X10*3/uL RBC 4.82 (4.60-5.80) X10*6/uL Hgb 14.9 (14.0-18.0) g/dl Hct 44.0 (42.0-52.0) % MCV 91.3 (80.0-98.0) fL MCH 30.9 (27.0-33.0) pg MCHC 33.9 (31.0-36.0) g/dl RDW 12.6 (11.0-16.0) % Plt Count 241 D (160-400) X10*3/uL MPV 10.3 (9.4-12.4) fL Immature Gran % (Auto) 0.2 (0.0-0.4) % Neut % (Auto) 56.3 (45-73) % Lymph % (Auto) 29.8 (20-40) % [place] % (Auto) 5.3 (2-11) % Eos % (Auto) 8.0 H (0-4) % Baso % (Auto) 0.4 (0-2) % Lymph # (Auto) 1.5 (1.2-4.9) X10*3/uL [place] # (Auto) 0.3 (0.1-1.2) X10*3/uL Eos # (Auto) 0.4 (0.0-0.4) X10*3/uL Baso # (Auto) 0.0 (0.0-0.2) X10*3/uL Abs Immat Gran (auto) 0.01 (0.00-0.03) X10*3/uL Absolute Neuts (auto) 2.9 (2.0-8.3) x10*3/uL Absolute Nucleated RBC 0.000 (0.0-0.012) X10*3/uL Nucleated RBC % (auto) 0.0 (0.0-0.2) /100WBC Sodium 141 (135-145) mmol/L Potassium 4.7 (3.3-5.1) mmol/L Chloride 100 (96-108) mmol/L Carbon Dioxide 34 H (22-29) mmol/L Anion Gap 12 (12-20) BUN 8 L (9-16) mg/dL Creatinine 1.00 (0.5-1.4) mg/dL Estim Creat Clear Calc 91.1 Estimated GFR > 60 Random Glucose 101 (60-115) mg/dL Calcium 9.9 D (8.4-10.2) mg/dL Magnesium 1.9 (1.6-2.6) mg/dL Total Bilirubin 0.4 (0.0-1.0) mg/dL AST 89 H (5-37) U/L ALT 109 H (0-40) U/L Alkaline Phosphatase 171 H (39-117) U/L Troponin I High Sens < 2.7 (<3.5-35.0) ng/L Total Protein 8.0 (6.5-8.0) g/dL Albumin 4.2 (3.5-5.0) g/dL COVID-19 (AI) Negative (Negative) COVID-19 Clin Com See Note Influenza Type A (PCR) NEGATIVE (Negative) Influenza Type B (PCR) NEGATIVE (Negative) RSV RNA Qual (PCR) NEGATIVE (Negative) SARS-CoV-2 RNA (RT-PCR) POSITIVE A (Negative) Independent Interpretation I performed an independent interpretation of an: EKG Interpretation: Vent. Rate: 071 BPM Atrial Rate: 071 BPM P-R Int: 158 ms QRS Dur: 084 ms QT Int: 406 ms P-R-T Axes: 031 060 039 degrees QTc Int: 441 ms Normal sinus rhythm Normal ECG When compared with ECG of 28-DEC-2017 16:25, No significant change was found DD/ 1644 Radiology Impression Discussion of test interpretation with radiology: I have reviewed the radiologist's reading. Discharge Plan Discharge Clinical Impression: COVID-19 Patient Disposition: Home, Self-Care Instructions: COVID-19 (Coronavirus Disease 2019) (ED) Additional Instructions: Follow up with your primary care provider. Return to the emergency department immediately if your symptoms worsen or if you develop any dizziness, shortness of breath, difficulty breathing, chest pain, blurry vision, loss of vision, nausea, vomiting, abdominal pain, fever, chills, back pain, or any other complaints. Prescriptions: No Action ibuprofen 600 mg tablet 600 mg PO BID PRN (Reason: pain) 30 Days Qty: 30 0RF Paxlovid 300 mg (150 mg x 2)-100 mg tablets,dose pack See Rx Instructions PO .COMPLEX Qty: 30 0RF Rx Instructions: take TWO 150 mg tablets of nirmatrelvir with ONE 100 mg tablet of ritonavir twice daily for 5 days PO tamsulosin 0.4 mg capsule 0.4 mg PO DAILY 30 Days Qty: 30 2RF dicyclomine 20 mg tablet 20 mg PO TID PRN (Reason: abdominal pain) Qty: 15 0RF ondansetron 4 mg tablet,disintegrating 4 mg PO Q6-8H PRN (Reason: nausea and vomiting) Qty: 7 0RF amoxicillin-pot clavulanate 875-125 mg tablet 1 tab PO BID Qty: 20 0RF nicotine (polacrilex) 4 mg gum PO hydroxyzine HCl 25 mg tablet 25 mg PO QID clonazepam 1 mg tablet 1 mg PO BEDTIME 14 Days Qty: 14 1RF Rx Instructions: administer 30 minutes before bedtime sertraline 50 mg tablet 50 mg PO DAILY 90 Days Qty: 90 1RF quetiapine [Seroquel] 50 mg tablet 50 mg PO BEDTIME 90 Days Qty: 90 1RF Referrals: [facility] [place] Group] (Call to establish and follow up with a primary care provider. If you already have a primary care provider, please follow up with them.) [facility]] (Call to establish and follow up with a primary care provider. If you already have a primary care provider, please follow up with them.) [facility] [Provider Group] (Call to establish and follow up with a primary care provider. If you already have a primary care provider, please follow up with them.) Stand Alone Forms: Work/School Release Interventions: ED Discharge Assessment Last Done: 06/19/23 19:09 Discharge Date/Time: 06/19/23 19:11 Print Language: Tristanian
[2023-06-19 17:07] LABS: MANUAL DIFF FLAG NO
[2023-06-19 17:09] LABS: Basophils Percent Auto 0.4 % (0-2); Eosinophils Absolute Auto 0.4 X10*3/uL (0.0-0.4); Hemoglobin 14.9 g/dl (14.0-18.0); Imm Gran Abs Auto 0.01 X10*3/uL (0.00-0.03); Imm Gran Pct Auto 0.2 % (0.0-0.4); Lymphocytes Absolute Auto 1.5 X10*3/uL (1.2-4.9); Lymphocytes Percent Auto 29.8 % (20-40); Mean Corpuscular HGB Conc 33.9 g/dl (31.0-36.0); Mean Corpuscular Hemoglobin 30.9 pg (27.0-33.0); Mean Corpuscular Volume 91.3 fL (80.0-98.0); Mean Platelet Volume 10.3 fL (9.4-12.4); Monocytes Absolute Auto 0.3 X10*3/uL (0.1-1.2); Monocytes Percent Auto 5.3 % (2-11); Neutrophils Absolute Auto 2.9 x10*3/uL (2.0-8.3); Neutrophils Percent Auto 56.3 % (45-73); Platelet Count 241 X10*3/uL (160-400); Red Blood Count 4.82 X10*6/uL (4.60-5.80); Red Cell Distribution Width 12.6 % (11.0-16.0); White Blood Count 5.1 X10*3/uL (4.8-10.8)
[2023-06-19 17:24] LABS: COVID-19 Test Negative (Negative); IDNOW Serial# 152EDE1D
[2023-06-19 17:25] LABS: Alanine Aminotransferase 109 U/L (0-40); Albumin Level 4.2 g/dL (3.5-5.0); Alkaline Phosphatase 171 U/L (39-117); Anion Gap 12 (12-20); Aspartate Amino Transferase 89 U/L (5-37); Bilirubin Total 0.4 mg/dL (0.0-1.0); Blood Urea Nitrogen 8 mg/dL (9-16); Calcium 9.9 mg/dL (8.4-10.2); Carbon Dioxide 34 mmol/L (22-29); Chloride 100 mmol/L (96-108); Creatinine Clr Calc Pharmacy 91.1; Estimated Glomerular Filt Rate > 60; Glucose Random 101 mg/dL (60-115); Magnesium 1.9 mg/dL (1.6-2.6); Potassium 4.7 mmol/L (3.3-5.1); Sodium 141 mmol/L (135-145)
[2023-06-19 17:33] LABS: Troponin-I High Sensitivity < 2.7 ng/L (<3.5-35.0)
[2023-06-19 17:50] LABS: Influenza A PCR NEGATIVE (Negative); Influenza B PCR NEGATIVE (Negative); Resp Syncy Virus RNA Qual PCR NEGATIVE (Negative); SARS COV2 PCR INHOUSE POSITIVE (Negative)
[2023-06-19 19:04] VITALS: BP 173/82; PULSE 92; RESP 19; TEMP 36.9; O2SAT 98
[2023-06-19 19:09] VITALS: BP 0/0; PULSE 0; RESP 0; TEMP -17.7; TEMP 0
== END 2023-06-19 19:11 | disposition home or self-care (01) ==
LOC: HO.ED 19:11
PROVIDERS: Physician Assistant Medical; Emergency Provider Internal Medicine
DX: U07.1 COVID-19 (principal)
CPT/HCPCS: 0241U; 80053; 83735; 84484; 85025; 87635; 93005; 99283

== ENCOUNTER → 2023-06-19 16:25 | Outpatient (BNV) | payer OTHER, SELFPAY | PROVIDERS: Emergency Provider Internal Medicine; Visit Provider Internal Medicine | DX: R10.9 Unspecified abdominal pain (principal) | CPT/HCPCS: 93010 ==

== ENCOUNTER 2023-11-08 08:00 | Outpatient (AMB) | payer OTHER, SELFPAY ==
[2023-11-08 08:13] VITALS: BP 126/70; PULSE 73; O2SAT 94; BMI 33.1
--- NOTE | 2023-11-08 08:13 | A.OFFPC_ITS ---
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: No Allergies No Known Allergies [No Known Allergies*] Allergy (Verified 11/08/23 08:22) Medication List - Last Reconciled 11/08/23 by Contreras Nielson PA-C clonazepam 1 mg PO BEDTIME 14 days dicyclomine 20 mg PO TID PRN hydroxyzine HCl 25 mg PO QID ibuprofen 600 mg PO BID PRN 30 days nicotine (polacrilex) mg PO ondansetron 4 mg PO Q6-8H PRN quetiapine (Seroquel) 50 mg PO BEDTIME 90 days sertraline 50 mg PO DAILY 90 days tamsulosin 0.4 mg PO DAILY 30 days Tobacco use date assessed: 05/10/23 Dental Screening Dental Screen Date: 05/10/23 HPI kidney pain HPI Details Patient is a 47-year-old male here today for problem visit. Patient has a past medical history significant for opiate dependency, nephrolithiasis, anxiety and tobacco dependency. He reports having right flank pain over the last few weeks. Note did receive a CT of abd scan in June of 2023 that did show-->Right-sided nephrolithiasis the largest measuring up to 3 mm in the right renal interpolar/upper pole region without hydronephrosis. Left-sided nephrolithiasis measuring up to 2 mm without hydronephrosis. Also patient's notes increased depression anxiety and is concerned about hi s mental health. Does have opiate dependency and has been on methadone for quite some time. Often has relapses. Was in detox a few months ago. She reports she recently found patient attempted hanging in the bathroom. She is very concerned. Should they agreed to have him evaluated at the ER for med management and psychiatric evaluation. [facility] Medical History Elevated liver enzymes Panic disorder Surgical History History of appendectomy Family History Mother No problems noted. Father Prostate cancer Paternal Grandfather Prostate cancer Social History Housing: House Alcohol intake: never Patient Tobacco Use Status: Current everyday Tobacco user Tobacco use type: Cigarette Cigarettes Per Day: 4 e-Cigarette/Vaping Use: Never Used Second Hand Smoke Exposure: Yes Substance Use Type: Crack/Cocaine service: No Current occupational status: disabled Cognitive needs: No Hearing needs: No Vision needs: No Questionnaire PHQ-9 Over the last 2 weeks, how often have you been bothered by any of the following problems? 1. Little interest or pleasure in doing things: nearly every day 2. Feeling down, depressed, or hopeless: nearly every day 3. Trouble falling or staying asleep, or sleeping too much: nearly every day 4. Feeling tired or having little energy: nearly every day 5. Poor appetite or overeating: more than half the days 6. Feeling bad about yourself - or that you are a failure or have let yourself or your family down: more than half the days 7. Trouble concentrating on things, such as reading the newspaper or watching television: nearly every day 8. Moving or speaking so slowly that other people could have noticed. Or the opposite - being so fidgety or restless that you have been moving around a lot more than usual: more than half the days 9. Thoughts that you would be better off or of hurting yourself in some way: several days Total score: 22 Depression Screening Interpretation: Positive Depression Screening Follow-up: Existing condition and Community Mental Health Worker F/U Depression Screening Done: Yes 79743 - PHQ-9 Billing: Yes Source: Developed by Drs. Bruce Aguayo, Tracey Olrando, Ori Connell and colleagues, with an educational kyle from [employer]. Thrive Questionnaire Date Thrive assessed: 05/10/23 I am a: Patient What is your living situation today?: I have a steady place to live Within the past 12 months, did the food you bought not last and you didn't have the money to get more?: Never true Within the past 12 months, did you worry whether your food would run out before you got money to buy more?: Never true Do you have trouble paying for medicines?: No Do you have trouble getting transportation to medical appointments?: No Do you have trouble paying your heating and electricity bill?: No Do you have trouble taking care of your child, family member or friend?: No Do you have trouble with day-to-day activities such as bathing, preparing meals, shopping, managing finances, etc.?: No Are you currently unemployed and looking for a job?: No Are you interested in more education?: No Please select the resources that you would like help with: None THRIVE Score: 0 AUDIT C Alcohol Use Questionnaire (AUDIT-C) 1. How often do you have a drink containing alcohol?: Never 3. How often do you have six or more drinks on one occasion?: Never Total Score: 0 REMIGIO-7 AMB Questionnaire REMIGIO-7 Date REMIGIO - 7 assessed: 05/10/23 Feeling nervous, anxious, or on edge: 3 = Nearly every day Not being able to stop or control worryin = Nearly every day Worrying too much about different things: 3 = Nearly every day Trouble relaxin = Nearly every day Being so restless that it is hard to sit still: 3 = Nearly every day Becoming easily annoyed or irritable: 2 = More than half the days Feeling afraid as if something awful might happen: 3 = Nearly every day Total REMIGIO-7 score (0-4 normal; 5-9 mild; 10-14 moderate; 15-21 severe): 20 Source: Developed by Drs. Bruce Aguayo, Tracey Orlando, Ori Connell and colleagues, with an educational kyle from [employer]. REMIGIO-7 Assessment Billing REMIGIO-7 Assessment Tool: REMIGIO-7 Assessment 22805 Review of Systems Const Denies headache(s) Eyes Denies loss of vision ENT Denies vertigo, Denies dizziness, Denies headache(s) and Denies sore throat Card Denies chest pain, Denies leg edema and Denies lightheadedness Resp Denies cough, Denies hemoptysis and Denies wheezing GI Denies abdominal pain, Denies melena, Denies constipation, Denies diarrhea and Denies vomiting Denies dysuria, Denies urinary frequency and Denies urinary urgency Musc Denies arthralgias, Denies joint swelling, Denies numbness and Denies tingling Neuro Denies Abnormal speech present, Reports behavioral changes, Reports confusion, Denies vertigo, Denies dizziness, Denies headache(s), Denies loss of vision, Denies memory loss, Denies numbness and Denies tingling Psych Denies anxiety, Reports behavioral changes, Reports change in appetite, Reports confusion, Reports depression, Reports irritability, Reports anhedonia, Denies memory loss, Denies panic attacks, Denies homicidal ideation and Reports suicidal ideation Roberto/Lymph Denies easy bleeding and Denies easy bruising Aller/Immun Denies wheezing Physical exam (Primary Care) Vital Signs: Last Vital Signs Pulse 73 11/08/23 08:13 BP 126/70 11/08/23 08:13 Pulse Ox 94 11/08/23 08:13 Oxygen Delivery Method Room Air 11/08/23 08:13 BMI result Body Mass Index 33.1 Tobacco/Smoking Status: Tobacco use Status Tobacco use date assessed 05/10/23 11/08/23 08:16 Patient Tobacco Use Status Current everyday Tobacco 11/08/23 08:16 Tobacco use type Cigarette 11/08/23 08:16 e-Cigarette/Vaping Use Never Used 11/08/23 08:16 PHQ-9: PHQ-9 Score PHQ-9: Total score 22 11/08/23 08:44 Depression Screening Interpretation: Positive Depression Screening Follow-up: Existing condition and Community Mental Health Worker F/U Thrive Assessment: Date of Thrive Assessment Date Thrive assessed 05/10/23 11/08/23 08:16 Const Other: APPEARS TO BE IN A DEPRESSED MOOD General: healthy appearing, no acute distress, alert, awake, confusion and lethargic Nutritional Appearance: well nourished Orientation/consciousness: oriented to person, oriented to place, oriented to time, confusion and lethargic HENMT Ears: TM's normal bilaterally General nose exam: Normal nasal mucous membranes and turbinates present Eyes Conjunctivae: conjunctivae normal Sclerae: sclerae normal Pupils: Equal, round and reactive pupils present Neck Neck: Yes no lymphadenopathy and Yes no JVD Thyroid: Thyroid normal Carotids: no bruits Resp Effort & Inspection: normal respiratory effort and not tachypneic Auscultation: no crackles, no rales, no rhonchi and no wheezes Cardio Rate: regular rate Rhythm: regular rhythm Heart sounds: no murmurs and normal S1 and S2 GI Palpation (GI): Soft to palpation, nontender, no hepatomegaly and no splenomegaly Auscultation: normal bowel sounds Skin General skin exam: no rashes or lesions noted and dry skin Neuro General: oriented to person, oriented to place, oriented to time and confusion Cranial nerves: Yes Equal, round and reactive pupils present Speech: No Abnormal speech present Gait exam (Neuro): Normal gait present Motor exam (neuro): no tremor noted Extrem Right upper extremity: full ROM Left upper extremity: full ROM Right lower extremity: full ROM; no edema Left lower extremity: full ROM; no edema Psych Mental Status: mental status grossly normal Speech and movement: Normal speech and movement present Affect: Sad affect present Attitude: cooperative Thought process: Normal thought process present Assessment and Plan Assessment & Plan (1) MDD (major depressive disorder), recurrent episode, moderate: Code(s): F33.1 - Major depressive disorder, recurrent, moderate Plan: Patient's PHQ-9 score positive for severe depression. Today in office seems to really depressed. with him today and reports he recently tried to hang himself. ADVISED ON ER CRISIS EVALUATION FOR MED MANAGEMENT DUE TO SEVERE DEPRESSION WITH SUICIDALITY. PATIENT AND SIGNIFICANT OTHER AGREE AND WILL GO TO ER FOR EVALUATION. (2) REMIGIO (generalized anxiety disorder): Code(s): F41.1 - Generalized anxiety disorder Plan: Patient continues to suffer with anxiety. Remigio 7 score positive for anxiety which has been existing condition for him. He is interested in cognitive behavioral therapy and restarting SSRI therapy. Was also given Seroquel at night to help him sleep which was effective. (3) Opiate dependence: Code(s): F11.20 - Opioid dependence, uncomplicated Qualifiers: Substance use status: in remission Qualified Code(s): F11.21 - Opioid dependence, in remission Plan: Reports he has been clean for street drugs over the last 1 month. Now on methadone clinic (4) Tobacco dependence: Code(s): F17.200 - Nicotine dependence, unspecified, uncomplicated Plan: Patient continues to smoke and does understand he needs to quit. He has found it difficult to do so. Does have nicotine replacement available to him. (5) Nephrolithiasis: Code(s): N20.0 - Calculus of kidney Plan: Patient reports bilateral flank pain. Likely due to nephrolithiasis. As per HPI did have a 3 and a 5 mm kidney stone bilaterally. Would likely benefit from Urology evaluation. (6) Suicide attempt by hanging: Code(s): T71.162A - Asphyxiation due to hanging, intentional self-harm, initial encounter Qualifiers: Encounter type: subsequent encounter Qualified Code(s): T71.162D - Asphyxiation due to hanging, intentional self-harm, subsequent encounter Plan: RECENT SUICIDE ATTEMPT BY HANGING. WILL BE EVALUATED BY THE FOR PSYCHIATRIC EVALUATION AND MED MANAGEMENT. Orders: Referrals Urology Referral N20.0 - Calculus of kidney Medications: New bupropion HCl XL (Wellbutrin XL) 150 mg PO QAM 30 days 30 tabs 2RF F33.1 - Major depressive disorder, recurrent, moderate pyridoxine (vitamin B6) 50 mg PO DAILY 90 tabs 1RF N20.0 - Calculus of kidney Coding Level of Care Code Est Pt Level 4 (19207) Diagnoses MDD (major depressive disorder), recurrent episode, moderate F33.1 REMIGIO (generalized anxiety disorder) F41.1 Opioid dependence in remission F11.21 Substance use status: in remission Tobacco dependence F17.200 Nephrolithiasis N20.0 Suicide attempt by hanging, subsequent encounter T71.162D Encounter type: subsequent encounter Additional Codes REMIGIO-7 Assessment Billing - REMIGIO-7 Assessment Tool: REMIGIO-7 Assessment 27023 ([id number])
== END 2023-11-08 08:41 | disposition home or self-care (01) ==
PROVIDERS: PCP Physician Assistant; Visit Provider Physician Assistant
DX: F33.1 Major depressive disorder, recurrent, moderate (principal); F41.1 Generalized anxiety disorder; F11.21 Opioid dependence, in remission; F17.200 Nicotine dependence, unspecified, uncomplicated; N20.0 Calculus of kidney; T71.162D Asphyxiation due to hanging, intentional self-harm, subsequent encounter
CPT/HCPCS: 96127; 99214

== ENCOUNTER 2024-02-28 13:07 | Outpatient (AMB) | payer MEDICARE, SELFPAY ==
--- NOTE | 2024-02-28 13:12 | A.OFFVIS_ITS ---
Intake Visit Reasons: bilateral nephrolithiasis Intake Note: Patient is present for BILATERAL NEPHROLITHIASIS Urology Medication:TAMSULOSIN,VITAMIN B6 Antibiotic Allergy:NONE Blood Thinner:NONE Seed Core Operator Required: No Allergies No Known Allergies [No Known Allergies*] Allergy (Verified 02/28/24 13:13) HPI Comments Details: Todd is a 48-year-old male who is here for evaluation for kidney stones. He states that he has had problems with erections and was prescribed testosterone replacement greater than 5 years ago and was prescribed Cialis daily by this urology department. He states that he took the medication for about 2 years and was doing very well so he thought his problem was cured and stopped taking the medications and did not come in for follow-up. I have reviewed labs in June total stone was 70, which is below the low normal of 250. I have reviewed the CT imaging in his chart which noted a 3 mm stone in the right kidney and a 2 mm stone in the left kidney. He states he thinks he passed the stone on the right side and it was very small. CTAP-06/07/23-3 mm stone in the right kidney, 2 mm stone in the left kidney. I will prescribe AndroGel and Cialis. Will check a 24 hour urine collection follow-up post. [facility] Medical History Elevated liver enzymes Panic disorder Surgical History History of appendectomy Family History Mother No problems noted. Father Prostate cancer Paternal Grandfather Prostate cancer Social History Housing: House Alcohol intake: never Patient Tobacco Use Status: Current everyday Tobacco user Tobacco use type: Cigarette Cigarettes Per Day: 4 e-Cigarette/Vaping Use: Never Used Second Hand Smoke Exposure: Yes Substance Use Type: Crack/Cocaine service: No Current occupational status: disabled Cognitive needs: No Hearing needs: No Vision needs: No Review of Systems Const All systems reviewed & are unremarkable except as noted in HPI and below Reports no additional complaints Eyes Reports no additional complaints ENT Reports no additional complaints Card Reports no additional complaints Resp Reports no additional complaints GI Reports no additional complaints Reports as per HPI Musc Reports no additional complaints Skin/Breast Reports system reviewed and no additional complaints, except as documented Neuro Reports no additional complaints Psych Reports no additional complaints Endo Reports no additional complaints Roberto/Lymph Reports no additional complaints Aller/Immun Reports no additional complaints Physical Exam Const General: healthy appearing, no acute distress and well developed Orientation/consciousness: patient oriented x3 HEENT Head: Yes normocephalic and Yes atraumatic Eyes Conjunctivae: conjunctivae normal Neck Neck: Yes normal visual inspection Chest Chest palpation & inspection: normal inspection of the chest Resp Effort & Inspection: normal respiratory effort Cardio Rate: regular rate GI Inspection: Yes normal to inspection Neuro General: patient oriented x3 Extrem General: No pedal edema Psych Appearance: grossly normal Affect: normal affect Results AMB Urinalysis, Automated UA Leukoctes 0 Fadumo/uL Last Edit by Melody Street [facility] on 02/28/24 13:32 UA Nitrite Negative Last Edit by Melody Street [facility] on 02/28/24 13:32 UA Urobilinogen 0.2 mg/dL Last Edit by Melody Street [facility] on 02/28/24 13:3 2 UA Protein 0 mg/dL Last Edit by Melody Street [facility] on 02/28/24 13:32 UA pH 6.0 Last Edit by Melody Street [facility] on 02/28/24 13:32 UA Blood 0 Silvestre/uL Last Edit by Melody Street [facility] on 02/28/24 13:32 UA Specific [place] 1.020 Last Edit by Melody Street [facility] on 02/28/24 13: 32 UA Ketone Negative Last Edit by Melody Street [facility] on 02/28/24 13:32 UA Bilirubin 0 mg/dL Last Edit by Melody Street [facility] on 02/28/24 13:32 UA Glucose 0 mg/dL Last Edit by Melody Street [facility] on 02/28/24 13:32 Results Reviewed Results Reviewed: Laboratory Last Values Urine pH (Auto) 6.0 02/28/24 13:31 Specific [place] (Auto) 1.020 02/28/24 13:31 Urine Protein (Auto) 0 mg/dL 02/28/24 13:31 Glucose (UA)(Auto) 0 mg/dL 02/28/24 13:31 Urine Ketones (Auto) Negative 02/28/24 13:31 Urine Blood (Auto) 0 Silvestre/uL 02/28/24 13:31 Urine Nitrite (Auto) Negative 02/28/24 13:31 Urine Bilirubin (Auto) 0 mg/dL 02/28/24 13:31 Urine Urobilinogen (Auto) 0.2 mg/dL 02/28/24 13:31 Leukocyte Esterase (Auto) 0 Fadumo/uL 02/28/24 13:31 Date of Service: 06/07/23 CT ABDOMEN AND PELVIS WITHOUT CONTRAST CLINICAL INFORMATION: Left flank pain history of stone COMPARISON: KUB radiograph from 08/25/2021, ultrasound abdomen from 09/01/2017 CT abdomen and pelvis from 12/22/2016 TECHNIQUE: Multidetector volumetric imaging was performed from the superior aspect of the liver through the pubic symphysis. Sagittal and coronal reformatted images were obtained on the technologist's workstation. This CT examination was performed using dose optimization techniques as appropriate, variously including the following: *Automated exposure control *Adjustment of mA and/or kV according to patient size (this includes techniques or standardized protocols for targeted exams where dose is matched to indication/reason for exam; i.e. extremities or head) *Use of iterative reconstruction technique DLP: 570 mGy-cm FINDINGS: LUNG BASES: Bibasilar atelectasis. No pneumothorax. No large pleural effusion. LIVER, GALLBLADDER, AND BILIARY TREE: Liver is borderline enlarged. Focal hypodense focus adjacent to the falciform ligament may reflect a region of focal fatty infiltration. No focal hepatic lesion or biliary ductal dilatation is present. The gallbladder is surgically absent. Common bile duct measures up to 11 mm. PANCREAS: Unremarkable. SPLEEN: Normal punctate calcified granuloma throughout the splenic parenchyma. ADRENAL GLANDS: Unremarkable. KIDNEYS AND URETERS: Right-sided nephrolithiasis the largest measuring up to 3 mm in the right renal interpolar/upper pole region without hydronephrosis. Left-sided nephrolithiasis measuring up to 2 mm without hydronephrosis. BLADDER: Unremarkable. GASTROINTESTINAL TRACT: Small hiatal hernia. Mild fecal loading of the colon. Few mildly prominent loops of small bowel in the left upper abdomen. The small and large bowel are unremarkable. The appendix is not definitively visualized.. ABDOMINAL WALL: Small hiatal hernia. Small fat filled bilateral inguinal hernias. LYMPH NODES: Multiple mildly prominent though nonenlarged bilateral inguinal and mesenteric lymph nodes are noted. No enlarged lymph nodes per size criteria. VASCULAR: Abdominal aorta is nonaneurysmal. PELVIC VISCERA: Prostate measures 3.9 cm with calcifications within its body. OSSEOUS STRUCTURES: Multilevel degenerative changes of the thoracolumbar and lumbosacral spine with large anterior spur along the anterior superior endplate of L4 IMPRESSION: 1. No acute process of the abdomen or pelvis identified. 2. Bilateral nephrolithiasis without hydronephrosis. 3. Few mildly prominent loops of small bowel in the left upper abdomen without evidence of obstruction. 4. Multiple mildly prominent though nonenlarged bilateral inguinal and mesenteric lymph nodes are noted. 5. Liver is borderline enlarged. Focal hypodense focus adjacent to the falciform ligament may reflect a region of focal fatty infiltration. 6. Status post cholecystectomy. Common bile duct measures up to 11 mm. 7. Prostate measures 3.9 cm with calcifications within its body. 8. Small hiatal hernia. Small fat filled bilateral inguinal hernias. Assessment & Plan Assessment & Plan (1) Bilateral kidney stones: Code(s): N20.0 - Calculus of kidney Category: Medical (2) Low testosterone: Code(s): R79.89 - Other specified abnormal findings of blood chemistry Category: Medical (3) Erectile dysfunction: Code(s): N52.9 - Male erectile dysfunction, unspecified Category: Medical (4) Methadone use: Code(s): F11.90 - Opioid use, unspecified, uncomplicated Category: Medical Plan He states he thinks he passed the stone on the right side and it was very small. I will prescribe AndroGel and Cialis. Will check a 24 hour urine collection follow-up post. Orders: Orders AMB Urinalysis Automated Today Z13.9 - Encounter for screening, unspecified Medications: New tadalafil (Cialis) [id number] [facility] [id number] Member [id number] USE COUPON not insurance 5 mg PO DAILY 30 tabs 5RF testosterone 2 pumps topical DAILY 30 days 75 grams 4RF low testosterone Patient Instructions: The patient had an opportunity to ask questions regarding treatment plan. The patient expressed understanding and agreement with the above treatment plan. The patient is aware they should contact our office by phone for worsening of their current condition or the appearance of new symptoms. Compliance is encouraged with any medications and followup testing that is ordered. It is a privilege to be allowed the opportunity to participate in the urologic care of your patient. If you have any questions or concerns regarding treatment for the above conditions please do not hesitate to contact me. The office telephone contact is [phone]. This note is constructed in part using voice recognition software. While every effort has been made to ensure accuracy personnel worker errors may have been included. Yours sincerely, Oli Adam MD Coding Level of Care Code New Pt Level 4 (18051) Diagnoses Bilateral kidney stones N20.0 Low testosterone R79.89 Erectile dysfunction N52.9 Methadone use F11.90
== END 2024-02-28 14:17 | disposition home or self-care (01) ==
PROVIDERS: PCP Physician Assistant; Visit Provider Urology
DX: N20.0 Calculus of kidney (principal); R79.89 Other specified abnormal findings of blood chemistry; N52.9 Male erectile dysfunction, unspecified; F11.90 Opioid use, unspecified, uncomplicated; Z13.9 Encounter for screening, unspecified
CPT/HCPCS: 99204

== ENCOUNTER → 2024-02-28 13:07 | Outpatient (BNVA) | payer MEDICARE, SELFPAY | PROVIDERS: PCP Physician Assistant; Visit Provider Urology | DX: N20.0 Calculus of kidney (principal); N52.9 Male erectile dysfunction, unspecified; R79.89 Other specified abnormal findings of blood chemistry; F11.20 Opioid dependence, uncomplicated | CPT/HCPCS: 81003; 99202 ==

== ENCOUNTER 2024-04-24 15:09 | Outpatient (AMB) | payer OTHER, SELFPAY ==
--- NOTE | 2024-04-24 15:23 | A.OFFVIS_ITS ---
Vital Signs 04/24/24 15:27 Height 5 ft 5 in Weight 208 lb 2 oz BMI 34.6 BP 120/82 Blood Pressure Location Lt brachial Position Sitting Pulse 90 Pulse Source Pulse Oximeter Pulse Oximetry (%) 97 Oxygen Delivery Method Room Air Intake Visit Reasons: INP-Insomnia Intake Note: Patient presents for a new patient evaluation for Insomnia. 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 He goes to bed at variable times, sometimes at 5am and gets up does his chores and goes back to sleep. He hits his partner accidentally when he is about to fall asleep, he gets a shock- like feeling. He is taking Clonazepam 1mg PO daily, per his Psychiatrist, and he can not sleep without it. He was cleared by his wire coating operator metal in the ED for Chest Pain. He is still having the pain in the center of his chest with the Clonazepam. His last episode was 3 weeks ago and it doesn't go away if he doesn't take his Clonazepam, he is able to sleep through the night, when he takes it and he does not have any thrashing, punching, kicking behaviors. He has GERD and is not controlled with diet and lifestyle modifications. He has anxiety, depression, panic attacks and takes seroquel, buproprion, and sertraline daily. He has been trying to quit smoking for about a year now, and he is smoking 2 cigarettes per day. He sees his Psychiatrist 2x a month with [facility], and therapist 2x a month. His mood is better, since starting testosterone therapy. Diet is good. EKG : Normal sinus rhythm Normal ECG When compared with ECG of 28-DEC-2017 16:25, No significant change was found [facility] Medical History Elevated liver enzymes Panic disorder Surgical History History of appendectomy Family History Mother No problems noted. Father Prostate cancer Paternal Grandfather Prostate cancer Social History Housing: House Alcohol intake: never Patient Tobacco Use Status: Current everyday Tobacco user Tobacco use type: Cigarette Cigarettes Per Day: 4 e-Cigarette/Vaping Use: Never Used Second Hand Smoke Exposure: Yes Substance Use Type: Crack/Cocaine service: No Current occupational status: disabled Cognitive needs: No Hearing needs: No Vision needs: No Review of Systems Const All systems reviewed & are unremarkable except as noted in HPI and below Physical Exam Vital Signs: Last Vital Signs Pulse 90 04/24/24 15:27 BP 120/82 04/24/24 15:27 Pulse Ox 97 04/24/24 15:27 Oxygen Delivery Method Room Air 04/24/24 15:27 BMI result Body Mass Index 34.6 Const General: cooperative, comfortable and no acute distress Nutritional Appearance: average body habitus and obese Orientation/consciousness: patient oriented x3 Eyes Pupils: Equal, round and reactive pupils present Resp Effort & Inspection: normal respiratory effort and able to speak in complete sentences Neuro General: patient oriented x3 and moves all extremities Cranial nerves: Yes CN's II-XII intact bilaterally, Yes Facial sensation intact/muscles of mastication intact, Yes Equal, round and reactive pupils present, Yes Normal accommodation reflex present, Yes Bilaterally intact EOM present, Yes Nystagmus not present, Yes Normal facial strength present, Yes Midline tongue present, Yes Ability to bilaterally rotate head present and Yes Ability to bilaterally elevate shoulders present Cognition (Neuro): normal cognition Gait exam (Neuro): Normal gait present Motor exam (neuro): 5/5 motor strength present throughout and Normal motor muscle tone present throughout Psych Appearance: grossly normal Speech and movement: Normal speech and movement present Affect: normal affect Attitude: cooperative Results Reviewed Results Reviewed: EKG : Normal sinus rhythm Normal ECG When compared with ECG of 28-DEC-2017 16:25, No significant change was found Labs : Assessment & Plan Assessment & Plan (1) Fatigue due to sleep pattern disturbance: Code(s): R53.83 - Other fatigue; G47.9 - Sleep disorder, unspecified Category: Medical (2) GERD (gastroesophageal reflux disease): Code(s): K21.9 - Gastro-esophageal reflux disease without esophagitis Category: Medical Qualifiers: Esophagitis presence: without esophagitis Qualified Code(s): K21.9 - Gastro-esophageal reflux disease without esophagitis Plan Insomnia with abnormal sleep behavior : Home Sleep Test GERD- Omeprazole 20mg PO BID - 30 min prior to meal Excessive Daytime Fatigue: Labs: B12/Folate/ MMA/ Homocysteine Vit D / TSH Sleep Hygiene: Set a regular sleep time, dark and cool environment, no devices in bed, may read. Red light therapy is beneficial, limit fluids 2 hours prior to bed time. Melatonin 5-10mg as needed for sleep. Will f/u in 3 months for RLS/ and Polysomnograph if HST is inconclusive. Orders: Orders RT home sleep study Today G47.00 - Insomnia, unspecified Homocysteine Today G47.9 - Sleep disorder, unspecified, R53.83 - Other fatigue Methylmalonic Acid Today G47.9 - Sleep disorder, unspecified, R53.83 - Other fatigue Vitamin B12 and Folate Today G47.9 - Sleep disorder, unspecified, R53.83 - Other fatigue Comprehensive Met. Panel Today G47.9 - Sleep disorder, unspecified, R53.83 - Other fatigue TSH reflex Free T4 Today G47.9 - Sleep disorder, unspecified, R53.83 - Other fatigue Vitamin D 25-OH Total Today G47.9 - Sleep disorder, unspecified, R53.83 - Other fatigue Medications: New melatonin May take 1-2 capsules of melatonin every night to regulate sleep cycle. 5 mg PO DAILY 30 days 30 caps 3RF Insomnia MDD 10mg G47.00 - Insomnia, unspecified omeprazole Take one capsule by mouth in the AM and one capsule in the PM daily for GERD/ ACID Reflux. 20 mg PO BID 1 month 60 caps 2RF GERD MDD 40mg Coding Level of Care Code Tele New Pt Level 4 (82792) Diagnoses Fatigue due to sleep pattern disturbance R53.83; G47.9 Gastroesophageal reflux disease without esophagitis K21.9 Esophagitis presence: without esophagitis Sleep Questionnaire Difficulty falling asleep: Yes Difficulty staying asleep?: Yes Number of arousals: alot insomnia Snoring: Yes Witnessed apneas: No Gasping arousals: Yes Nocturia: Yes GERD: Yes Vivid dreams: Yes Acting out dreams: Yes (Punch and kick your partner) Abnormal behavior in sleep: No (No parasomnias) Abnormal movements in sleep: Yes Morning headaches: Yes Excessive daytime sleepiness: Yes Daytime naps: No Restless legs: Yes Hallucinations: No Sleep paralysis: No Drop attacks: Yes (1x 6mon ago, did not lose consciousness, dizzy) Sleep Study: No CPAP: No
[2024-04-24 15:27] VITALS: BP 120/82; PULSE 90; O2SAT 97; BMI 34.6
== END 2024-04-24 16:28 | disposition home or self-care (01) ==
PROVIDERS: PCP Physician Assistant; Visit Provider Physician Assistant Medical
DX: R53.83 Other fatigue (principal); G47.9 Sleep disorder, unspecified; K21.9 Gastro-esophageal reflux disease without esophagitis
CPT/HCPCS: 99204

== ENCOUNTER → 2024-04-24 15:09 | Outpatient (BNVA) | payer OTHER, SELFPAY | PROVIDERS: PCP Physician Assistant; Visit Provider Physician Assistant Medical | DX: R53.83 Other fatigue (principal); G47.9 Sleep disorder, unspecified; G47.00 Insomnia, unspecified; K21.9 Gastro-esophageal reflux disease without esophagitis | CPT/HCPCS: 99202 ==

== ENCOUNTER → 2024-05-08 08:53 | Outpatient (BNVA) | payer OTHER, SELFPAY | PROVIDERS: PCP Physician Assistant; Visit Provider Psychiatry & Neurology Neurology | DX: G25.2 Other specified forms of tremor (principal) | CPT/HCPCS: 99212 ==

== ENCOUNTER 2024-05-13 10:48 | Outpatient (AMB) | payer OTHER, SELFPAY ==
[2024-05-13 11:08] VITALS: BP 126/86; PULSE 114; TEMP 36; O2SAT 97; BMI 33.8
--- NOTE | 2024-05-13 11:08 | MHC.PC.OV ---
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: No Accompanied by: Self / Same As Patient Allergies No Known Allergies [No Known Allergies*] Allergy (Verified 05/13/24 11:21) Medication List - Last Reconciled 05/13/24 by Contreras Nielson PA-C bupropion HCl XL (Wellbutrin XL) 150 mg PO QAM 30 days clonazepam 1 mg PO BEDTIME 14 days clonidine HCl 0.1 mg PO dicyclomine 20 mg PO TID PRN hydroxyzine HCl 25 mg PO QID ibuprofen 600 mg PO BID PRN 30 days melatonin 5 mg PO DAILY 30 days MDD 10mg methadone 5 mg PO DAILY nicotine (polacrilex) mg PO omeprazole 20 mg PO BID 1 month MDD 40mg ondansetron 4 mg PO Q6-8H PRN pyridoxine (vitamin B6) 50 mg PO DAILY quetiapine (Seroquel) 50 mg PO BEDTIME 90 days sertraline 50 mg PO DAILY 90 days tadalafil (Cialis) 5 mg PO DAILY tamsulosin 0.4 mg PO DAILY 30 days testosterone 2 pumps topical DAILY 30 days Tobacco use date assessed: 05/13/24 Dental Screening Dental Screen Date: 05/13/24 Did you have a dental visit in the last 12 months?: Yes Did you have a dental problem in the last 6 months where you did not have access to dental care?: No Was dental information given to patient?: Patient has dentist HPI med review HPI Details Patient is a 48-year-old male here today for follow-up visit. Patient has a past medical history significant for generalized anxiety disorder, history of IV drug use, hypogonadism, Nephrolithiasis, tobacco dependence,? major depressive disorder, GERD. --Concern--> The patient initially experienced painful urination three years ago, which improved with medication for inflammation. However, the condition has since worsened, to the extent that he struggles to urinate and spends approximately 20 minutes attempting to do so each time, with occurrences limited to one or two times per day. He reports holding urine for extended periods, sometimes up to 20 hours, and experiences difficulty initiating urination despite the urge to void. The patient has a history of erectile dysfunction for which he takes medication, and previously consulted with a urologist who prescribed testosterone to address low levels. Despite improvement in erections, urinary symptoms persist. Tamsulosin was prescribed for urinary issues, with some relief of inflammation and pain, though urinary retention remains a significant concern. The patient reports potential weight gain possibly related to urinary retention. The family history includes prostate cancer; his grandfather and his father survived the condition. A prostate-specific antigen (PSA) test done in June of the previous year was normal. -hypogonadism: Secondary to long-term opiate use. he reports he has a history of low testosterone in the past and was on topical testosterone replacement. He is currently seeing [facility]. He has been started testosterone supplementation and feels his energy has been better Opiate dependency: Now recovery over last 8 months in is going to a methadone clinic. .. JIMENEZ: was seeing a mental health therapist last year for short amount of time though has lost follow up. He is on clonazepam 1 mg PRN which he reports his working well for his anxiety. Asking for more though does understand did dependency to benzodiazepines. He also continues with sertraline and Seroquel. He is seeing a psychiatrist whom he has a good relationship with. He feels better from a mental health point of view He is interested in restarting mental health therapy and perhaps seeing a psychiatrist in near future. [facility] Medical History (Updated 05/13/24 @ 13:20 by Contreras Nielson PA-C) Back pain Coarse tremors Elevated liver enzymes Panic disorder Surgical History History of appendectomy Family History Mother No problems noted. Father Prostate cancer Paternal Grandfather Prostate cancer Social History Housing: House Alcohol intake: never Patient Tobacco Use Status: Current everyday Tobacco user Tobacco use type: Cigarette Cigarettes Per Day: 4 e-Cigarette/Vaping Use: Never Used Second Hand Smoke Exposure: Yes Substance Use Type: Crack/Cocaine service: No Current occupational status: disabled Cognitive needs: No Hearing needs: No Vision needs: No Questionnaire PHQ-9 Over the last 2 weeks, how often have you been bothered by any of the following problems? 1. Little interest or pleasure in doing things: more than half the days 2. Feeling down, depressed, or hopeless: nearly every day 3. Trouble falling or staying asleep, or sleeping too much: nearly every day 4. Feeling tired or having little energy: nearly every day 5. Poor appetite or overeating: nearly every day 6. Feeling bad about yourself - or that you are a failure or have let yourself or your family down: more than half the days 7. Trouble concentrating on things, such as reading the newspaper or watching television: nearly every day 8. Moving or speaking so slowly that other people could have noticed. Or the opposite - being so fidgety or restless that you have been moving around a lot more than usual: more than half the days 9. Thoughts that you would be better off or of hurting yourself in some way: several days Total score: 22 Depression Screening Interpretation: Positive Depression Screening Follow-up: Existing condition and In treatment Depression Screening Done: Yes 95401 - PHQ-9 Billing: Yes Source: Developed by Drs. Bruce Aguayo, Tracey Orlando, Ori Connell and colleagues, with an educational kyle from [employer]. Thrive Questionnaire Date Thrive assessed: 05/13/24 I am a: Patient What is your living situation today?: I have a steady place to live Within the past 12 months, did the food you bought not last and you didn't have the money to get more?: Never true Within the past 12 months, did you worry whether your food would run out before you got money to buy more?: Never true Do you have trouble paying for medicines?: No Do you have trouble getting transportation to medical appointments?: No Do you have trouble paying your heating and electricity bill?: No Do you have trouble taking care of your child, family member or friend?: No Do you have trouble with day-to-day activities such as bathing, preparing meals, shopping, managing finances, etc.?: No Are you currently unemployed and looking for a job?: No Are you interested in more education?: No Please select the resources that you would like help with: None Currently or been in a relationship where the following occur: No concerns reported THRIVE Score: 0 AUDIT C Alcohol Use Questionnaire (AUDIT-C) 1. How often do you have a drink containing alcohol?: Never 3. How often do you have six or more drinks on one occasion?: Never Total Score: 0 JIMENEZ-7 AMB Questionnaire JIMENEZ-7 Date JIMENEZ - 7 assessed: 05/13/24 Feeling nervous, anxious, or on edge: 3 = Nearly every day Not being able to stop or control worryin = Nearly every day Worrying too much about different things: 3 = Nearly every day Trouble relaxin = Nearly every day Being so restless that it is hard to sit still: 3 = Nearly every day Becoming easily annoyed or irritable: 1 = Several days Feeling afraid as if something awful might happen: 3 = Nearly every day Total JIMENEZ-7 score (0-4 normal; 5-9 mild; 10-14 moderate; 15-21 severe): 19 Source: Developed by Drs. Bruce Aguayo, Tracey Orlando, Ori Connell and colleagues, with an educational kyle from [employer]. JIMENEZ-7 Assessment Billing JIMENEZ-7 Assessment Tool: JIMENEZ-7 Assessment 81595 Review of Systems Const Denies headache(s) Eyes Denies loss of vision ENT Denies vertigo, Denies dizziness, Denies headache(s) and Denies sore throat Card Denies chest pain, Denies leg edema and Denies lightheadedness Resp Denies cough, Denies hemoptysis and Denies wheezing GI Denies abdominal pain, Denies melena, Denies constipation, Denies diarrhea and Denies vomiting Denies dysuria, Denies urinary frequency and Denies urinary urgency Musc Denies arthralgias, Denies joint swelling, Denies numbness and Denies tingling Neuro Denies Abnormal speech present, Denies behavioral changes, Denies vertigo, Denies dizziness, Denies headache(s), Denies loss of vision, Denies memory loss, Denies numbness and Denies tingling Psych Denies anxiety, Denies behavioral changes, Denies depression, Denies memory loss and Denies panic attacks Roberto/Lymph Denies easy bleeding and Denies easy bruising Aller/Immun Denies wheezing Physical exam (Primary Care) Vital Signs: Last Vital Signs Temp 96.8 F 05/13/24 11:08 Pulse 114 H 05/13/24 11:08 BP 126/86 05/13/24 11:08 Pulse Ox 97 05/13/24 11:08 Oxygen Delivery Method Room Air 05/13/24 11:08 BMI result Body Mass Index 33.8 Tobacco/Smoking Status: Tobacco use Status Tobacco use date assessed 05/13/24 05/13/24 11:14 Patient Tobacco Use Status Current everyday Tobacco 05/13/24 11:14 Tobacco use type Cigarette 05/13/24 11:14 e-Cigarette/Vaping Use Never Used 05/13/24 11:14 PHQ-9: PHQ-9 Score PHQ-9: Total score 22 05/13/24 11:22 Depression Screening Interpretation: Positive Depression Screening Follow-up: Existing condition and In treatment Thrive Assessment: Date of Thrive Assessment Date Thrive assessed 05/13/24 05/13/24 11:14 Currently or been in a relationship where the following occur: No concerns reported Const General: healthy appearing, no acute distress, alert and awake Nutritional Appearance: well nourished Orientation/consciousness: oriented to person, oriented to place and oriented to time HENMT Ears: TM's normal bilaterally General nose exam: Normal nasal mucous membranes and turbinates present Eyes Conjunctivae: conjunctivae normal Sclerae: sclerae normal Pupils: Equal, round and reactive pupils present Neck Neck: Yes no lymphadenopathy and Yes no JVD Thyroid: Thyroid normal Carotids: no bruits Resp Effort & Inspection: normal respiratory effort and not tachypneic Auscultation: no crackles, no rales, no rhonchi and no wheezes Cardio Rate: regular rate Rhythm: regular rhythm Heart sounds: no murmurs and normal S1 and S2 GI Palpation (GI): Soft to palpation, nontender, no hepatomegaly and no splenomegaly Auscultation: normal bowel sounds Skin General skin exam: no rashes or lesions noted and dry skin Neuro General: oriented to person, oriented to place and oriented to time Cranial nerves: Yes Equal, round and reactive pupils present Speech: No Abnormal speech present Gait exam (Neuro): Normal gait present Motor exam (neuro): no tremor noted Extrem Right upper extremity: full ROM Left upper extremity: full ROM Right lower extremity: full ROM; no edema Left lower extremity: full ROM; no edema Psych Mental Status: mental status grossly normal Speech and movement: Normal speech and movement present Affect: normal affect Attitude: cooperative Thought process: Normal thought process present Coding Level of Care Code Est Pt Level 4 (91473) Diagnoses Urinary retention R33.9 MDD (major depressive disorder), recurrent episode, moderate F33.1 Opioid dependence in remission F11.21 Substance use status: in remission Additional Codes JIMENEZ-7 Assessment Billing - JIMENEZ-7 Assessment Tool: JIMENEZ-7 Assessment 26640 ([id number]) PHQ-9 - 60577 - PHQ-9 Billing: Yes ([id number]) Assessment & Plan Assessment & Plan (1) Urinary retention: Code(s): R33.9 - Retention of urine, unspecified Category: Medical Plan: I discussed the patient's urinary retention and the ongoing treatment with Tamsulosin, suggesting an increased dose to improve bladder emptying. I ordered a bladder ultrasound and emphasized the importance of continuing testosterone therapy. We addressed his concern about prostate cancer due to family history, and reassured him with recent normal PSA results, planning for annual monitoring. I acknowledged the patient's difficulty with urination during drug testing for probation and provided a letter to assist with alternatives. (2) MDD (major depressive disorder), recurrent episode, moderate: Code(s): F33.1 - Major depressive disorder, recurrent, moderate Category: Medical Plan: Patient's PHQ-9 score positive for moderate to severe depression which has been existing condition for him. He is consistent with taking his mental health medications and now seeing his psychiatrist which has been helpful. He feels better from a mental health point of view (3) Opiate dependence: Code(s): F11.20 - Opioid dependence, uncomplicated Category: Medical Qualifiers: Substance use status: in remission Qualified Code(s): F11.21 - Opioid dependence, in remission Plan: Continues on methadone for his opiate dependency. He reports he has been sober now from illicit street drugs over the last 8 months. As above he does needs a gait urine drug screen still having difficulty with urinary retention he is asking to have alternative methods on screening him for illicit drug use thus written letter today in office. Orders: Orders US bladder Today R33.9 - Retention of urine, unspecified Comprehensive [place]. Panel Fast Today Z13.1 - Encounter for screening for diabetes mellitus Complete Blood Count no Diff Today Z13.1 - Encounter for screening for diabetes mellitus Prostate Specific Antigen Scr Today R33.9 - Retention of urine, unspecified, Z12.5 - Encounter for screening for malignant neoplasm of prostate Medications: Changed From tamsulosin 0.4 mg PO DAILY 30 days 30 caps 3RF N20.0 - Calculus of kidney To tamsulosin 0.8 mg (2 x 0.4 mg) PO DAILY 30 caps 3RF 30 days N20.0 - Calculus of kidney
== END 2024-05-13 11:49 | disposition home or self-care (01) ==
PROVIDERS: PCP Physician Assistant; Visit Provider Physician Assistant
DX: R33.9 Retention of urine, unspecified (principal); F33.1 Major depressive disorder, recurrent, moderate; F11.21 Opioid dependence, in remission

== ENCOUNTER → 2024-05-13 10:48 | Outpatient (BNVA) | payer OTHER, SELFPAY | PROVIDERS: PCP Physician Assistant; Visit Provider Physician Assistant | DX: R33.9 Retention of urine, unspecified (principal); F33.1 Major depressive disorder, recurrent, moderate; F11.21 Opioid dependence, in remission | CPT/HCPCS: 96127; 99212 ==

== ENCOUNTER 2024-05-30 14:08 | Outpatient (REF) | payer OTHER, SELFPAY ==
--- NOTE | ~2024-05-30 | US_ITS ---
CLINICAL HISTORY: R33.9 - Retention of urine, unspecified US Urinary Bladder Comparison: None Findings: The urinary bladder is unremarkable. Prevoid volume: 210 mL. Postvoid volume: 11.2 mL Ureteral jets are not visualized bilaterally. Prostate gland measures 3.7 x 3.6 x 3.5 cm IMPRESSION: Normal urinary bladder. This document has been electronically signed by: Roger Fair MD on 05/30/2024 19:25:56
== END 2024-05-30 14:09 | disposition home or self-care (01) ==
LOC: HO.US 14:08
PROVIDERS: PCP Physician Assistant; Visit Provider Physician Assistant
DX: R33.9 Retention of urine, unspecified (principal)
CPT/HCPCS: 76857

== ENCOUNTER → 2024-05-30 14:09 | Outpatient (BNV) | payer OTHER, SELFPAY | PROVIDERS: PCP Physician Assistant; Visit Provider Specialist | DX: R33.9 Retention of urine, unspecified (principal) | CPT/HCPCS: 76857 ==

== ENCOUNTER 2024-06-16 15:32 | Emergency (ER) | payer OTHER, SELFPAY ==
--- NOTE | ~2024-06-16 | XR_ITS ---
CLINICAL HISTORY: pain s p fall Three views of the left ankle. COMPARISON: None FINDINGS: No ankle joint effusion. Tiny plantar calcaneal spur. Ankle mortise appears symmetric on non-stressed views. Talar dome appears intact. Distal tibia and fibula appear intact. Visualized tarsal bones appear intact. Small ossification posterior to the calcaneus measuring 0.6 x 0.1 cm. IMPRESSION: 1. Small ossification posterior to the calcaneus measuring 0.6 x 0.1 cm may represent a caudally displaced calcaneal enthesophyte versus soft tissue calcification. No adjacent soft tissue swelling to suggest this is acute. Recommend correlation with clinical history and point tenderness. This document has been electronically signed by: Angel Luis Apodaca MD on 06/16/2024 16:34:36
--- NOTE | ~2024-06-16 | CT_ITS ---
CLINICAL HISTORY: pain, injury CT lumbar spine without contrast. COMPARISON: None FINDINGS: Normal curvature of the lumbar spine. Vertebral body heights are maintained. The visualized paraspinal and retroperitoneal soft tissues are unremarkable. L5-S1: Facet joint arthrosis. No significant neural foraminal narrowing. L4-L5: Mild posterior disc bulge. Facet joint arthrosis. Mild bilateral neural foraminal narrowing. L3-L4: Anterior marginal osteophytes. Facet joint arthrosis. No significant neural foraminal narrowing. L2-L3: Anterior marginal osteophytes. Facet joint arthrosis. No significant neural foraminal narrowing. L1-L2: Intervertebral disc is normal in height. No significant disc bulge or central canal stenosis. IMPRESSION: 1. No acute osseous or alignment abnormality of the lumbar spine. This document has been electronically signed by: Angel Luis Apodaca MD on 06/16/2024 19:35:18
--- NOTE | ~2024-06-16 | XR_ITS ---
CLINICAL HISTORY: s p 12 foot fall Four views of the left knee. COMPARISON: XR left knee dated 04/10/14 at 15:29 EST FINDINGS: No suprapatellar joint effusion. Patellar enthesophyte present. Joint spaces are maintained. Visualized portions of the distal femur, patella, and proximal tibia and fibula appear intact. IMPRESSION: 1. No radiographic evidence of acute injury to the left knee. This document has been electronically signed by: Angel Luis Apodaca MD on 06/16/2024 16:29:08
--- NOTE | ~2024-06-16 | XR_ITS ---
CLINICAL HISTORY: s p 12 foot fall AP pelvis, Two views of the left hip. COMPARISON: None FINDINGS: Pelvic ring appears intact. Visualized lower lumbar spine is unremarkable. Visualized portions of the contralateral right hip appear intact. Left hip: Visualized portions of the proximal left femur appears intact. No trabecular disruption or cortical discontinuity. Femoral head is appropriately seated in the acetabulum. Small osteophytes present along the superior margin of the acetabulum and greater trochanter. IMPRESSION: 1. No radiographic evidence of acute injury to the pelvis and left hip. This document has been electronically signed by: Angel Luis Apodaca MD on 06/16/2024 16:34:52
--- NOTE | ~2024-06-16 | XR_ITS ---
CLINICAL HISTORY: pain s p fall Three views of the left foot. COMPARISON: None FINDINGS: No ankle joint effusion. Small ossification posterior to the calcaneus measuring 0.6 x 0.1 cm. Small plantar calcaneal spur present. Normal tarsometatarsal alignment. Tarsals, metatarsals and phalanges appear intact. IMPRESSION: 1. Small ossification posterior to the calcaneus may represent a soft tissue calcification versus a caudally displaced small calcaneal enthesophyte. No adjacent soft tissue swelling to suggest this is acute. Recommend correlation with point tenderness and clinical history. This document has been electronically signed by: Angel Luis Apodaca MD on 06/16/2024 16:31:30
--- NOTE | ~2024-06-16 | CT_ITS ---
CLINICAL HISTORY: pain, injury CT of the left foot without IV contrast. COMPARISON: XR left foot dated 06/16/24 at 15:51 EDT FINDINGS: Distal tibia and fibula appear intact. Talar dome appears intact. Talus appears intact. Calcaneus appears intact. Small ossification present along the distal Achilles tendon posterior to the calcaneus corresponding with ossification seen on same day radiographs of the foot. Navicular appears intact. Small accessory navicular present. Cuboid and cuneiforms are intact. Metacarpals and phalanges are intact. IMPRESSION: 1. No evidence of acute injury to the left foot. 2. Small ossification within the soft tissues along the distal Achilles tendon likely represents a developing enthesophyte. No evidence of injury to the adjacent calcaneus or Achilles tendon. This document has been electronically signed by: Angel Luis Apodaca MD on 06/16/2024 19:38:25
[2024-06-16 15:45] VITALS: BP 123/75; PULSE 93; RESP 20; TEMP 36.9; O2SAT 100; BMI 29.8
--- NOTE | 2024-06-16 15:45 | ED_ITS ---
HPI - Extremity Injury (Lower) General Chief Complaint: Extremity Injury, Lower Stated Complaint: left ankle/jumped from roof Time Seen by Provider: 06/16/24 16:24 Source: patient Mode of arrival: wheelchair Limitations: no limitations History of Present Illness ED Provider: Daniela Riley PA-C HPI Narrative: Patient is a 48 year old male with a past medical history of GERD, nephrolithias is, and urinary retention who presents to the ED for left foot pain. Patient states that he fell off of a roof that was about 9-10 ft high landing on his left foot and left side. Denies head strike, denies blood thinners. He is currently endorsing pain of his left foot and ankle. He also endorses some low back pain with intermittent radiation down into his left leg. He also endorses some mild suprapubic discomfort and states he typically has trouble voiding due to a prostate condition and he has not urinated since yesterday but that isn't unusual for him and has nothing to do with his fall. He denies chest pain, difficulty breathing, and abdominal pain. MD complaint: ankle injury and foot injury Onset (ago): day(s) Injury: Left: ankle and foot Type of Injury: other Relieving factors: immobilization Exacerbating factors: movement Context: fall Associated symptoms: swelling and able to partially bear weight Other symptoms: none Related Data Home Medications ?Medication ?Instructions ?Recorded ?Confirmed hydroxyzine HCl 25 mg tablet 25 mg PO QID 05/10/23 05/13/24 nicotine (polacrilex) 4 mg gum mg PO 05/10/23 05/13/24 clonidine HCl 0.1 mg tablet 0.1 mg PO 05/08/24 05/13/24 methadone 5 mg/0.5 mL oral syringe 5 mg PO DAILY 05/08/24 05/13/24 (FOR ORAL USE ONLY) Previous Rx's ?Medication ?Instructions ?Recorded ibuprofen 600 mg tablet 600 mg PO BID PRN pain 30 days #30 04/02/23 tabs ondansetron 4 mg disintegrating 4 mg PO Q6-8H PRN nausea and 06/07/23 tablet vomiting #7 tabs pyridoxine (vitamin B6) 50 mg 50 mg PO DAILY #90 tabs 11/08/23 tablet quetiapine 50 mg tablet (Seroquel) 50 mg PO BEDTIME 90 days #90 tabs 11/18/23 clonazepam 1 mg tablet 1 mg PO BEDTIME 14 days #14 tabs 12/27/23 tadalafil 5 mg tablet (Cialis) 5 mg PO DAILY #30 tabs 02/28/24 testosterone 2 pump topical DAILY low 02/28/24 testosterone 30 days #75 grams dicyclomine 20 mg tablet 20 mg PO TID PRN abdominal pain 03/25/24 #15 tabs melatonin 5 mg capsule 5 mg PO DAILY Insomnia 30 days #30 04/24/24 caps omeprazole 20 mg capsule,delayed 20 mg PO BID GERD 1 month #60 caps 04/24/24 release bupropion HCl 150 mg 24 hr tablet, 150 mg PO QAM 30 days #30 tabs 05/07/24 extended release (Wellbutrin XL) sertraline 50 mg tablet 50 mg PO DAILY 90 days #90 tabs 05/12/24 tamsulosin 0.4 mg capsule 0.8 mg (2 x 0.4 mg) PO DAILY 30 05/13/24 days #30 caps naproxen 500 mg tablet,delayed 500 mg PO BID PRN pain #14 tabs 06/16/24 release Allergies Allergy/AdvReac Type Severity Reaction Status Date / Time No Known Allergies Allergy Verified 06/16/24 15:47 [No Known Allergies*] Review of Systems Constitutional: Constitutional: Reports no additional constitutional complaints, Denies chills, Denies fever(s) and Denies night sweats Eyes: Eyes: Reports no additional eye complaints, Denies blurry vision, Denies change in vision, Denies diplopia, Denies eye discharge, Denies loss of vision and Denies eye pain ENT: Denies dizziness Cardiovascular: Cardiovascular: Reports no additional cardiovascular complaints, Denies chest pain, Denies lightheadedness, Denies Loss of Consciousness and Denies dyspnea Respiratory: Respiratory: Reports no additional respiratory complaints and Denies dyspnea Gastrointestinal: Gastrointestinal: Reports no additional gastrointestinal complaints, Denies abdominal pain, Denies melena, Denies hematochezia, Denies change in bowel habits and Denies change in stool character Genitourinary: Genitourinary: Reports no additional male genitourinary complaints, Denies hematuria, Denies oliguria, Reports difficulty urinating (per his baseline), Denies dysuria, Denies urinary frequency, Denies urinary hesitancy, Denies urinary incontinence and Denies urinary urgency Musculoskeletal: Musculoskeletal: Reports no additional musculoskeletal complaints and Reports as per HPI Comments: left foot pain low back pain Neurologic: Denies dizziness and Denies loss of vision Psychiatric: Psychiatric: Reports no additional psychiatric complaints Endocrine: Endocrine: Reports no additional endocrine complaints Hematologic/Lymphatic: Hematologic/Lymphatic: Reports no additional he matologic/lymphatic complaints Allergic/Immunologic: Allergic/Immunologic: Reports no additional allergic/immunologic complaints PMFSH Past Medical History Attestation statement: The following information was validated with the patient. Source: old records reviewed and nursing notes reviewed Medical History Back pain Coarse tremors Elevated liver enzymes Panic disorder Surgical History History of appendectomy Family History Family History Mother No problems noted. Father Prostate cancer Paternal Grandfather Prostate cancer Social History Social History Housing: House Alcohol intake: never Patient Tobacco Use Status: Current everyday Tobacco user Tobacco use type: Cigarette Cigarettes Per Day: 4 Smoked in Last 30 Days: No e-Cigarette/Vaping Use: Never Used Second Hand Smoke Exposure: Yes Substance Use Type: Crack/Cocaine Advance Directives: No Advance Directives Information Provided: Yes service: No Current occupational status: disabled Cognitive needs: No Hearing needs: No Vision needs: No Physical Exam Vital Signs: Vital Signs: Last Vital Signs Temp 98.0 F 06/16/24 18:10 Pulse 63 06/16/24 18:10 Resp 16 06/16/24 18:10 BP 126/84 06/16/24 18:10 Pulse Ox 100 06/16/24 18:10 O2 Del Method Room Air 06/16/24 18:10 BMI result Body Mass Index 29.8 Const: General: cooperative, no acute distress, alert and awake Nutritional Appearance: well nourished Orientation/consciousness: patient oriented x3 Limitations: no limitations HEENT: Head: Yes normal to inspection and Yes atraumatic Ears: hearing grossly normal bilaterally and external ears normal General nose exam: Normal external nose present, no nasal discharge noted and no epistaxis Face and sinus: Yes normal facial exam, No abrasion and No laceration Mouth: Normal oral and palatal mucosa present, no drooling and no muffled voice Eyes: General: appearance normal, both eyes and all related structures Periorbital: periorbital findings normal Eyelids: Yes eyelids normal Conjunctivae: conjunctivae normal Pupils: Equal, round and reactive pupils present EOM: EOMs intact bilaterally Neck: Neck: Yes normal visual inspection, Yes full ROM and Yes no lymphadenopathy Chest: Chest palpation & inspection: normal inspection of the chest Resp: Effort & Inspection: normal respiratory effort and able to speak in complete sentences Auscultation: clear to auscultation bilaterally Cardio: Rate: regular rate Rhythm: regular rhythm Heart sounds: S1 normal heart sound present, S2 normal heart sound present, no gallops, no murmurs and no rubs GI: Inspection: Yes normal to inspection Palpation (GI): Soft to palpation, nontender, no guarding and not rigid Back/Spine/Pelvis: Back: back tenderness Thoracic/Lumbar Spine: lumbar spinal tenderness Neuro: General: patient oriented x3, moves all extremities and CN's II-XI intact bilaterally Cranial nerves: Yes Equal, round and reactive pupils present Cognition (Neuro): normal cognition Extrem: General: Yes normal to inspection, Yes full ROM and Yes capillary refill normal Right lower extremity: normal to inspection Left lower extremity: normal capillary refill, ankle Details: tenderness and swelling and foot Details: tenderness and edema Psych: Appearance: grossly normal Mental Status: mental status grossly normal Affect: normal affect Attitude: cooperative Thought process: Normal thought process present Thought content: Normal thought content present Insight: Good insight present (Psych) Course Course Course Narrative: This is a Rapid Medical Examination (RME) performed by Arline Mejia PA-C in triage. Full HPI, ROS, assessment and treatment plan per primary provider in the Main ED. 48 yo male presents to the ER for evaluation of left ankle and foot pain after he fell from a 12 foot roof yesterday. he landed on the ankle and has been unable to bear weight since. no other injuries - specifically denies left knee, hip, back pain, no chest pain, abdominal pain, headache or neck pain. did not hit his head or lose consciousness. Plan: xr foot ankle and foot Reevaluation(s) Reevaluation #1: CT of the left foot without IV contrast. COMPARISON: XR left foot dated 06/16/24 at 15:51 EDT FINDINGS: Distal tibia and fibula appear intact. Talar dome appears intact. Talus appears intact. Calcaneus appears intact. Small ossification present along the distal Achilles tendon posterior to the calcaneus corresponding with ossification seen on same day radiographs of the foot. Navicular appears intact. Small accessory navicular present. Cuboid and cuneiforms are intact. Metacarpals and phalanges are intact. IMPRESSION: 1. No evidence of acute injury to the left foot. 2. Small ossification within the soft tissues along the distal Achilles tendon likely represents a developing enthesophyte. No evidence of injury to the adjacent calcaneus or Achilles tendon. CLINICAL HISTORY: pain, injury CT lumbar spine without contrast. COMPARISON: None FINDINGS: Normal curvature of the lumbar spine. Vertebral body heights are maintained. The visualized paraspinal and retroperitoneal soft tissues are unremarkable. L5-S1: Facet joint arthrosis. No significant neural foraminal narrowing. L4-L5: Mild posterior disc bulge. Facet joint arthrosis. Mild bilateral neural foraminal narrowing. L3-L4: Anterior marginal osteophytes. Facet joint arthrosis. No significant neural foraminal narrowing. L2-L3: Anterior marginal osteophytes. Facet joint arthrosis. No significant neural foraminal narrowing. L1-L2: Intervertebral disc is normal in height. No significant disc bulge or central canal stenosis. IMPRESSION: 1. No acute osseous or alignment abnormality of the lumbar spine. placed in walking boot and provided crutches encouarged outpatient follow up with orthopedics stable for d/c home he will f/u with urology for his acute on chronic urinary retention Time: 20:08 Medications Administered Discontinued Medications Generic Name Dose Route Start Last Admin Trade Name Freq PRN Reason Stop Dose Admin Ibuprofen 600 mg 06/16/24 19:47 06/16/24 19:54 Ibuprofen 600 Mg Tablet PO 06/16/24 19:48 600 mg ONCE ONE Administration Lidocaine HCl 10 ml 06/16/24 18:37 06/16/24 19:04 Lidocaine Hcl 2 % Urojet 10 Ml Jel.Pf.Shima TOPICAL 06/16/24 18:38 10 ml ONCE ONE Administration Oxycodone HCl 5 mg 06/16/24 19:47 06/16/24 19:54 Oxycodone Hcl Immed Release 5 Mg Tablet PO 06/16/24 19:48 5 mg ONCE ONE Administration Medical Decision Making Medical Decision Making [facility] Narrative: Patient is a 48 year old assigned male at with a history of JIMENEZ, GERD, MDD, and difficulty urinating presenting to the emergency department today with left foot / ankle pain and continued difficulty urinating. Patient's physical exam was as noted in the physical exam portion of this note. Patient's pain is predominantly in the left foot. Patient's bladder scan showed >200ml. Patient's left knee, hip, and pelvis x-rays showed no acute process. Patient's left foot and ankle x-rays showed a small ossification that may represent a caudally displaced calcaneal enthesophyte with no adjacent soft tissue swelling suggesting this is acute. Given the patient's physical exam - will order a lumbar CT and left foot CT to further evaluate for fracture. I explained my physical exam findings as well as all test results to the patient. I answered all questions asked by the patient. I had an extensive conversation with the patient regarding his urinary retention. Patient stated that it has been an issue since before this incident and he is growing increasingly frustrated with it. Patient states that he would like to have a catheter placed to help relieve his urinary retention and that he will follow up on an outpatient basis with the urology group. Bolden catheter ordered. Patient signed out to the evening PA pending CT reads. Differential Diagnosis Differential Diagnoses: The differential diagnosis associated with the presentation includes Calcaneus fracture Acute on chronic urinary retention Lumbar sprain Lumbar strain Lumbar pain Fall Admission/Observation Consideration of admission/observation: Escalation of care including admission/observation considered Patient's disposition will be determined after CT reads Independent Interpretation I performed an independent interpretation of an: Plain X-Ray Interpretation: My interpretation is in agreement with the radiologist's impression of these imaging studies. CLINICAL HISTORY: s p 12 foot fall Four views of the left knee. COMPARISON: XR left knee dated 04/10/14 at 15:29 EST FINDINGS: No suprapatellar joint effusion. Patellar enthesophyte present. Joint spaces are maintained. Visualized portions of the distal femur, patella, and proximal tibia and fibula appear intact. IMPRESSION: 1. No radiographic evidence of acute injury to the left knee. This document has been electronically signed by: Angel Luis Apodaca MD on 06/16/2024 16:29:08 Dictated By: Angel Luis Apodaca MD Signed By: Electronically signed by Angel Luis Apodaca MD 06/16/24 1629 CLINICAL HISTORY: pain s p fall Three views of the left foot. COMPARISON: None FINDINGS: No ankle joint effusion. Small ossification posterior to the calcaneus measuring 0.6 x 0.1 cm. Small plantar calcaneal spur present. Normal tarsometatarsal alignment. Tarsals, metatarsals and phalanges appear intact. IMPRESSION: 1. Small ossification posterior to the calcaneus may represent a soft tissue calcification versus a caudally displaced small calcaneal enthesophyte. No adjacent soft tissue swelling to suggest this is acute. Recommend correlation with point tenderness and clinical history. This document has been electronically signed by: Angel Luis Apodaca MD on 06/16/2024 16:31:30 Dictated By: Angel Luis Apodaca MD Signed By: Electronically signed by Angel Luis Apodaca MD 06/16/24 1632 CLINICAL HISTORY: pain s p fall Three views of the left ankle. COMPARISON: None FINDINGS: No ankle joint effusion. Tiny plantar calcaneal spur. Ankle mortise appears symmetric on non-stressed views. Talar dome appears intact. Distal tibia and fibula appear intact. Visualized tarsal bones appear intact. Small ossification posterior to the calcaneus measuring 0.6 x 0.1 cm. IMPRESSION: 1. Small ossification posterior to the calcaneus measuring 0.6 x 0.1 cm may represent a caudally displaced calcaneal enthesophyte versus soft tissue calcification. No adjacent soft tissue swelling to suggest this is acute. Recommend correlation with clinical history and point tenderness. This document has been electronically signed by: Angel Luis Apodaca MD on 06/16/2024 16:34:36 Dictated By: Angel Luis Apodaca MD Signed By: Electronically signed by Angel Luis Apodaca MD 06/16/24 1060 CLINICAL HISTORY: s p 12 foot fall AP pelvis, Two views of the left hip. COMPARISON: None FINDINGS: Pelvic ring appears intact. Visualized lower lumbar spine is unremarkable. Visualized portions of the contralateral right hip appear intact. Left hip: Visualized portions of the proximal left femur appears intact. No trabecular disruption or cortical discontinuity. Femoral head is appropriately seated in the acetabulum. Small osteophytes present along the superior margin of the acetabulum and greater trochanter. IMPRESSION: 1. No radiographic evidence of acute injury to the pelvis and left hip. This document has been electronically signed by: Angel Luis Apodaca MD on 06/16/2024 16:34:52 Dictated By: Angel Luis Apodaca MD Signed By: Electronically signed by Angel Luis Apodaca MD 06/16/24 7558 Radiology Impression Discussion of test interpretation with radiology: I have reviewed the radiologist's reading. Discharge Plan Discharge Clinical Impression: Acute pain of left foot, Acute urinary retention Patient Disposition: Home, Self-Care Instructions: Urinary Retention in Men (ED), Bolden Catheter Placement and Care (ED) Additional Instructions: Your imaging today did not show any fractures Rest your ankle and elevate your foot when possible. Recommend THEA wrap for support and compression and the walking boot for support Use ice several times per day for the next 48 hours. You may bear weight as tolerated. If pain is too severe, use crutches until better. Take Motrin and/or Tylenol as needed for pain. Follow up with your doctor and Urology If no improvement follow up with Orthopedics for further evaluation and treatment CLINICAL HISTORY: pain, injury CT lumbar spine without contrast. COMPARISON: None FINDINGS: Normal curvature of the lumbar spine. Vertebral body heights are maintained. The visualized paraspinal and retroperitoneal soft tissues are unremarkable. L5-S1: Facet joint arthrosis. No significant neural foraminal narrowing. L4-L5: Mild posterior disc bulge. Facet joint arthrosis. Mild bilateral neural foraminal narrowing. L3-L4: Anterior marginal osteophytes. Facet joint arthrosis. No significant neural foraminal narrowing. L2-L3: Anterior marginal osteophytes. Facet joint arthrosis. No significant neural foraminal narrowing. L1-L2: Intervertebral disc is normal in height. No significant disc bulge or central canal stenosis. IMPRESSION: 1. No acute osseous or alignment abnormality of the lumbar spine. CT of the left foot without IV contrast. COMPARISON: XR left foot dated 06/16/24 at 15:51 EDT FINDINGS: Distal tibia and fibula appear intact. Talar dome appears intact. Talus appears intact. Calcaneus appears intact. Small ossification present along the distal Achilles tendon posterior to the calcaneus corresponding with ossification seen on same day radiographs of the foot. Navicular appears intact. Small accessory navicular present. Cuboid and cuneiforms are intact. Metacarpals and phalanges are intact. IMPRESSION: 1. No evidence of acute injury to the left foot. 2. Small ossification within the soft tissues along the distal Achilles tendon likely represents a developing enthesophyte. No evidence of injury to the adjacent calcaneus or Achilles tendon. Prescriptions: New naproxen 500 mg tablet,delayed release (DR/EC) 500 mg PO BID PRN (Reason: pain) Qty: 14 0RF No Action ibuprofen 600 mg tablet 600 mg PO BID PRN (Reason: pain) 30 Days Qty: 30 0RF quetiapine [Seroquel] 50 mg tablet 50 mg PO BEDTIME 90 Days Qty: 90 1RF clonazepam 1 mg tablet 1 mg PO BEDTIME 14 Days Qty: 14 0RF Rx Instructions: administer 30 minutes before bedtime dicyclomine 20 mg tablet 20 mg PO TID PRN (Reason: abdominal pain) Qty: 15 0RF bupropion HCl [Wellbutrin XL] 150 mg tablet extended release 24 hr 150 mg PO QAM 30 Days Qty: 30 3RF sertraline 50 mg tablet 50 mg PO DAILY 90 Days Qty: 90 1RF ondansetron 4 mg tablet,disintegrating 4 mg PO Q6-8H PRN (Reason: nausea and vomiting) Qty: 7 0RF pyridoxine (vitamin B6) 50 mg tablet 50 mg PO DAILY Qty: 90 1RF nicotine (polacrilex) 4 mg gum PO hydroxyzine HCl 25 mg tablet 25 mg PO QID melatonin 5 mg capsule 5 mg PO DAILY MDD 10mg 30 Days Qty: 30 3RF Rx Instructions: May take 1-2 capsules of melatonin every night to regulate sleep cycle. omeprazole 20 mg capsule,delayed release(DR/EC) 20 mg PO BID MDD 40mg 30 Days Qty: 60 2RF Rx Instructions: Take one capsule by mouth in the AM and one capsule in the PM daily for GERD/ ACID Reflux. clonidine HCl 0.1 mg tablet 0.1 mg PO methadone 5 mg/0.5 mL syringe 5 mg PO DAILY tamsulosin 0.4 mg capsule 0.8 mg PO DAILY 30 Days Qty: 30 3RF tadalafil [Cialis] 5 mg tablet 5 mg PO DAILY Qty: 30 5RF Rx Instructions: [id number] [facility] [id number] Member [id number] USE COUPON not insurance testosterone 20.25 mg/1.25 gram (1.62 %) gel in metered-dose pump 2 pump topical DAILY 30 Days Qty: 75 4RF Ref[place]: [facility] [place] Group] [facility] [Provider Group] (Call to follow up with the urology team about your bolden catheter. ) Contreras Nielson PA-C [Primary Care Provider] - Print Language: Ukrainian
[2024-06-16 18:10] VITALS: BP 126/84; PULSE 63; RESP 16; TEMP 36.7; O2SAT 100
[2024-06-16] MEDS: Lidocaine HCl 2 % Urojet 10 ML JEL.PF.APP TOPICAL (19:04)
--- NOTE | 2024-06-16 19:15 | MHC.EDTECH ---
This tech took over are of pt at 1900,rounded and introduced self to pt,pt appears comfortable call hubbard in reach
[2024-06-16] MEDS: Ibuprofen 600 MG TABLET PO (19:54)
[2024-06-16] MEDS: oxyCODONE HCl Immed Release 5 MG TABLET PO (19:54)
[2024-06-16 20:14] VITALS: BP 133/80; PULSE 78; RESP 18; TEMP 36.8; O2SAT 100
--- NOTE | 2024-06-16 20:16 | MHC.EDTECH ---
T/W applied a short walking boot to left foot,crutches taught to pt, pt tolerated well, provider aware and checked for placement
[2024-06-16 20:35] VITALS: BP 133/80; PULSE 78; RESP 18; TEMP 36.8; O2SAT 100
== END 2024-06-16 20:37 | disposition home or self-care (01) ==
PROVIDERS: Emergency Provider Emergency Medicine; PCP Physician Assistant
DX: M79.672 Pain in left foot (principal); R33.9 Retention of urine, unspecified; M54.50 Low back pain, unspecified; F11.20 Opioid dependence, uncomplicated; Z79.899 Other long term (current) drug therapy
CPT/HCPCS: 51702; 51798; 72131; 73502; 73564; 73610; 73630; 73700; 99284; 99285

== ENCOUNTER → 2024-06-16 15:45 | Outpatient (BNV) | payer OTHER, SELFPAY | PROVIDERS: Emergency Provider Emergency Medicine; PCP Physician Assistant; Visit Provider Radiology Diagnostic Radiology | DX: M79.672 Pain in left foot (principal); M54.50 Low back pain, unspecified; S89.92XA Unspecified injury of left lower leg, initial encounter; M25.572 Pain in left ankle and joints of left foot | CPT/HCPCS: 72131; 73502; 73564; 73610; 73630; 73700 ==

== ENCOUNTER 2024-06-21 16:43 | Outpatient (AMB) | payer OTHER, SELFPAY ==
[2024-06-21 16:45] VITALS: BP 144/82; PULSE 72; TEMP 36.4; O2SAT 97
--- NOTE | 2024-06-21 16:45 | MHC.PC.OV ---
Vital Signs 06/21/24 16:45 Height 5 ft 7 in BMI Reason not done Patient refused/unable BP 144/82 H Blood Pressure Location Lt brachial Position Sitting Pulse 72 Pulse Source Pulse Oximeter Temp 97.5 F Temp Source Temporal Artery Scan Pulse Oximetry (%) 97 Oxygen Delivery Method Room Air Intake Visit Reasons: [facility] 06/16 left ankle/jumped from roof Intake Note: Patient is here to follow-up after a visit the emergency department at [facility] on 06/16/2024 Bobbin Disker Required: No Accompanied by: Spouse Allergies No Known Allergies [No Known Allergies*] Allergy (Verified 06/21/24 16:50) Tobacco use date assessed: 06/21/24 Dental Screening Dental Screen Date: 06/21/24 Did you have a dental visit in the last 12 months?: Yes Did you have a dental problem in the last 6 months where you did not have access to dental care?: No Was dental information given to patient?: Patient has dentist HPI HPI Comments History of Present Illness Details 48 y/o male patient who presents to the clinic for HDF. He was admitted at [facility] 06/16/24 after he fell off of a roof that was about 9-10 ft high landing on his left foot and left side. Denies head strike, denies blood thinners. He is currently endorsing pain of his left foot and ankle. He also endorses some low back pain with intermittent radiation down into his left leg. CT lumbar and Ankle/foot Negative for fracture. He also endorses some mild suprapubic discomfort and states he typically has trouble voiding due to a prostate condition and he has not urinated for few days but that isn't unusual for him. He asked the ED to place Antoine Catheter for Home discharge. Pt today reports some Blood around the Urethra. He does have an appointment with Urology 06/24/24. He also has an appointment with Orthopedics on 07/09/24. [facility] Medical History (Updated 06/21/24 @ 17:32 by Elaina Lopez NP) Left ankle injury Back pain Coarse tremors Elevated liver enzymes Panic disorder Surgical History History of appendectomy Family History Mother No problems noted. Father Prostate cancer Paternal Grandfather Prostate cancer Social History Housing: House Alcohol intake: never Patient Tobacco Use Status: Current everyday Tobacco user Tobacco use type: Cigarette Cigarettes Per Day: 4 e-Cigarette/Vaping Use: Never Used Second Hand Smoke Exposure: Yes Substance Use Type: Crack/Cocaine service: No Current occupational status: disabled Cognitive needs: No Hearing needs: No Vision needs: Yes (Glasses) Questionnaire Thrive Questionnaire Date Thrive assessed: 06/21/24 I am a: Patient What is your living situation today?: I have a steady place to live Within the past 12 months, did the food you bought not last and you didn't have the money to get more?: Never true Within the past 12 months, did you worry whether your food would run out before you got money to buy more?: Never true Do you have trouble paying for medicines?: No Do you have trouble getting transportation to medical appointments?: No Do you have trouble paying your heating and electricity bill?: No Do you have trouble taking care of your child, family member or friend?: No Do you have trouble with day-to-day activities such as bathing, preparing meals, shopping, managing finances, etc.?: No Are you currently unemployed and looking for a job?: No Are you interested in more education?: No Please select the resources that you would like help with: None Currently or been in a relationship where the following occur: No concerns reported THRIVE Score: 0 JIMENEZ-7 AMB Questionnaire JIMENEZ-7 Date JIMENEZ - 7 assessed: 05/13/24 Source: Developed by Drs. Bruce Aguayo, Tracey Orlando, Ori Connell and colleagues, with an educational kyle from [employer]. Review of Systems Const All systems reviewed & are unremarkable except as noted in HPI and below Physical exam (Primary Care) Vital Signs: Last Vital Signs Temp 97.5 F 06/21/24 16:45 Pulse 72 06/21/24 16:45 BP 144/82 H 06/21/24 16:45 Pulse Ox 97 06/21/24 16:45 Oxygen Delivery Method Room Air 06/21/24 16:45 Tobacco/Smoking Status: Tobacco use Status Tobacco use date assessed 06/21/24 06/21/24 16:55 Patient Tobacco Use Status Current everyday Tobacco 06/21/24 16:55 Tobacco use type Cigarette 06/21/24 16:55 e-Cigarette/Vaping Use Never Used 06/21/24 16:55 Thrive Assessment: Date of Thrive Assessment Date Thrive assessed 06/21/24 06/21/24 16:55 Currently or been in a relationship where the following occur: No concerns reported Const General: cooperative and no acute distress Nutritional Appearance: overweight Orientation/consciousness: patient oriented x3 GI Palpation (GI): Tenderness to palpation present (GI) suprapubicly Auscultation: normal bowel sounds Other: Antoine Catheter present. General: Yes no CVA tenderness Back/Spine/Pelvis Back: no CVA tenderness Neuro General: patient oriented x3 Extrem Left lower extremity: foot (Foot and Ankle left on Ortho Boot) Psych Speech and movement: Normal speech and movement present Coding Level of Care Code Est Pt Level 4 (95904) Diagnoses Urinary retention R33.9 Injury of left ankle, initial encounter S99.912A Encounter type: initial encounter Time Spent (min) 20 Assessment & Plan Assessment & Plan (1) Urinary retention: Code(s): R33.9 - Retention of urine, unspecified Category: Medical Plan: Keep the Antoine Cath clean and dry F/U with Urology as scheduled (2) Left ankle injury: Code(s): S99.912A - Unspecified injury of left ankle, initial encounter Category: Medical Qualifiers: Encounter type: initial encounter Qualified Code(s): S99.912A - Unspecified injury of left ankle, initial encounter Plan: Keep the Ortho Boot on as directed. F/U with Orthopedics as scheduled.
== END 2024-06-21 17:14 | disposition home or self-care (01) ==
PROVIDERS: PCP Physician Assistant; Visit Provider Nurse Practitioner Family
DX: R33.9 Retention of urine, unspecified (principal); S99.912A Unspecified injury of left ankle, initial encounter

== ENCOUNTER → 2024-06-21 16:43 | Outpatient (BNVA) | payer OTHER, SELFPAY | PROVIDERS: PCP Physician Assistant; Visit Provider Nurse Practitioner Family | DX: R33.9 Retention of urine, unspecified (principal); S99.912D Unspecified injury of left ankle, subsequent encounter | CPT/HCPCS: 99212 ==

== ENCOUNTER 2024-06-27 13:50 | Outpatient (AMB) | payer OTHER, SELFPAY ==
--- NOTE | 2024-06-27 14:04 | A.OFFVIS_ITS ---
Intake Visit Reasons: 4M litho/testo labs Intake Note: Patient is present for a 4 month follow up/Litholink/Testo labs Urology Medication:TAMSULOSIN,VITAMIN B6 Antibiotic Allergy:NONE Blood Thinner:NONE Agricultural Services Director Required: No Allergies No Known Allergies [No Known Allergies*] Allergy (Verified 06/27/24 14:12) HPI Comments Details: 06/27/24--48-year-old male presenting with follow-up nephrolithiasis and reported low testosterone leading to prescribed Tadalafil and testosterone supplementation he adheres to. Over two years, he experienced notable urinary difficulty, including retention requiring catheterization. This led to diagnostic evaluations and treatment with Tamsulosin. A family history of prostate cancer warrants continued surveillance. Discussed further evaluation with office cystoscopy and PSA screening. Urinary Symptoms Review - Episodic urinary retention requiring catheter placement on 05/13/24 - Tamsulosin 0.8 mg daily to manage urinary symptoms - Long-standing urinary issues over two years Results - Bladder ultrasound: performed on 05/13/24 02/28/24--Richard is a 48-year-old male who is here for evaluation for kidney stones. He states that he has had problems with erections and was prescribed testosterone replacement greater than 5 years ago and was prescribed Cialis daily by this urology department. He states that he took the medication for about 2 years and was doing very well so he thought his problem was cured and stopped taking the medications and did not come in for follow-up. I have reviewed labs in June total stone was 70, which is below the low normal of 250. I have reviewed the CT imaging in his chart which noted a 3 mm stone in the right kidney and a 2 mm stone in the left kidney. He states he thinks he passed the stone on the right side and it was very small. CTAP-06/07/23-3 mm stone in the right kidney, 2 mm stone in the left kidney. I will prescribe AndroGel and Cialis. Will check a 24 hour urine collection follow-up post. [facility] Medical History Left ankle injury Back pain Coarse tremors Elevated liver enzymes Panic disorder Surgical History History of appendectomy Family History Mother No problems noted. Father Prostate cancer Paternal Grandfather Prostate cancer Social History Housing: House Alcohol intake: never Patient Tobacco Use Status: Current everyday Tobacco user Tobacco use type: Cigarette Cigarettes Per Day: 4 e-Cigarette/Vaping Use: Never Used Second Hand Smoke Exposure: Yes Substance Use Type: Crack/Cocaine service: No Current occupational status: disabled Cognitive needs: No Hearing needs: No Vision needs: Yes (Glasses) Review of Systems Const All systems reviewed & are unremarkable except as noted in HPI and below Reports no additional complaints Eyes Reports no additional complaints ENT Reports no additional complaints Card Reports no additional complaints Resp Reports no additional complaints GI Reports no additional complaints Reports as per HPI Musc Reports no additional complaints Skin/Breast Reports system reviewed and no additional complaints, except as documented Neuro Reports no additional complaints Psych Reports no additional complaints Endo Reports no additional complaints Roberto/Lymph Reports no additional complaints Aller/Immun Reports no additional complaints Assessment & Plan Assessment & Plan (1) Bilateral kidney stones: Code(s): N20.0 - Calculus of kidney Category: Medical (2) Low testosterone: Code(s): R79.89 - Other specified abnormal findings of blood chemistry Category: Medical (3) Erectile dysfunction: Code(s): N52.9 - Male erectile dysfunction, unspecified Category: Medical (4) Methadone use: Code(s): F11.90 - Opioid use, unspecified, uncomplicated Category: Medical (5) History of urinary retention: Code(s): Z87.898 - Personal history of other specified conditions Category: Medical Plan - Continue Tadalafil and testosterone gel as prescribed. - Follow up on lab work for testosterone, hct and PSA. - Maintain hydration to prevent kidney stones. - Monitor urinary symptoms and report changes. - Schedule a follow-up appointment in 4-6 weeks for office cystoscopy Medications: Refilled tadalafil (Cialis) [id number] [facility] [id number] Member [id number] USE COUPON not insurance 5 mg PO DAILY 30 tabs 5RF Patient Instructions: The patient had an opportunity to ask questions regarding treatment plan. The patient expressed understanding and agreement with the above treatment plan. The patient is aware they should contact our office by phone for worsening of their current condition or the appearance of new symptoms. Compliance is encouraged with any medications and followup testing that is ordered. It is a privilege to be allowed the opportunity to participate in the urologic care of your patient. If you have any questions or concerns regarding treatment for the above conditions please do not hesitate to contact me. The office telephone contact is [phone]. This note is constructed in part using voice recognition software. While every effort has been made to ensure accuracy corner brace block machine operator errors may have been included. Yours sincerely, Oli Adam MD Scribe Plan - Not visible on output: Patient was informed and verbally consented to the use of an ambient scribe for clinic note documentation during this visit. Coding Level of Care Code Est Pt Level 4 (92764) Diagnoses Bilateral kidney stones N20.0 Low testosterone R79.89 Erectile dysfunction N52.9 Methadone use F11.90 History of urinary retention Z87.898
== END 2024-06-27 15:10 | disposition home or self-care (01) ==
LOC: HO.HUSH 13:51
PROVIDERS: PCP Physician Assistant; Visit Provider Urology
DX: N20.0 Calculus of kidney (principal); R79.89 Other specified abnormal findings of blood chemistry; N52.9 Male erectile dysfunction, unspecified; F11.90 Opioid use, unspecified, uncomplicated; Z87.898 Personal history of other specified conditions
CPT/HCPCS: 99214

== ENCOUNTER → 2024-06-27 13:50 | Outpatient (BNVA) | payer OTHER, SELFPAY | PROVIDERS: PCP Physician Assistant; Visit Provider Urology | DX: N20.0 Calculus of kidney (principal); R79.89 Other specified abnormal findings of blood chemistry; N52.9 Male erectile dysfunction, unspecified; F11.90 Opioid use, unspecified, uncomplicated; Z87.898 Personal history of other specified conditions | CPT/HCPCS: 99212 ==

== ENCOUNTER 2024-08-22 13:34 | Outpatient (AMB) | payer OTHER, SELFPAY ==
--- NOTE | 2024-08-22 13:40 | A.OFFVIS_ITS ---
Intake Visit Reasons: Follow up Intake Note: Patient is present for a follow up/Labs Urology Medication:TAMSULOSIN,VITAMIN B6 Antibiotic Allergy:NONE Blood Thinner:NONE Transport Aircrewman Required: No Allergies No Known Allergies (No Known Allergies*) Allergy (Verified 06/27/24 14:12) Medication List - Last Reconciled 08/22/24 by Oli Adam MD bupropion HCl XL (Wellbutrin XL) 150 mg PO QAM 30 days clonazepam 1 mg PO BEDTIME 14 days clonidine HCl 0.1 mg PO hydroxyzine HCl 25 mg PO QID ibuprofen 600 mg PO BID PRN 30 days melatonin 5 mg PO DAILY 30 days MDD 10mg methadone 5 mg PO DAILY naproxen 500 mg PO BID PRN omeprazole 20 mg PO BID 1 month MDD 40mg ondansetron 4 mg PO Q6-8H PRN pyridoxine (vitamin B6) 50 mg PO DAILY quetiapine (Seroquel) 50 mg PO BEDTIME 90 days sertraline 50 mg PO DAILY 90 days tadalafil (Cialis) 5 mg PO DAILY tamsulosin 0.8 mg (2 x 0.4 mg) PO DAILY 30 days testosterone 2 pumps topical DAILY 30 days HPI Comments Details: 08/22/24-- History of Present Illness The patient is a 48-year-old, presenting with concerns of prostate health due to a family history of prostate cancer. His grandfather succumbed to the disease, and his father also underwent therapy for prostate cancer. Recognizing the importance of monitoring, the patient seeks to keep his prostate health in check with regular PSA testing. He is on testosterone replacement therapy, necessitating monitoring of testosterone levels. His current regimen includes tamsulosin for benign prostatic hyperplasia management, which he reports improves urination. However, he stops testosterone temporarily during urinary issues, which self-resolve, allowing resumption of therapy. The patient discloses usage of Cialis to manage erectile dysfunction, finding it effective when taken prior to sexual activity. The patient's history of kidney stones has led to a Vitamin B6 regimen meant for prevention, taken albeit irregularly. These issues underscore a need for regular monitoring and supportive management through medical intervention and supplementation. 06/27/24--48-year-old male presenting with follow-up nephrolithiasis and reported low testosterone leading to prescribed Tadalafil and testosterone supplementation he adheres to. Over two years, he experienced notable urinary difficulty, including retention requiring catheterization. This led to diagnostic evaluations and treatment with Tamsulosin. A family history of prostate cancer warrants continued surveillance. Discussed further evaluation with office cystoscopy and PSA screening. Urinary Symptoms Review - Episodic urinary retention requiring catheter placement on 05/13/24 - Tamsulosin 0.8 mg daily to manage urinary symptoms - Long-standing urinary issues over two years Results - Bladder ultrasound: performed on 05/13/24 02/28/24--Richard is a 48-year-old male who is here for evaluation for kidney stones. He states that he has had problems with erections and was prescribed testosterone replacement greater than 5 years ago and was prescribed Cialis daily by this urology department. He states that he took the medication for about 2 years and was doing very well so he thought his problem was cured and stopped taking the medications and did not come in for follow-up. I have reviewed labs in June total stone was 70, which is below the low normal of 250. I have reviewed the CT imaging in his chart which noted a 3 mm stone in the right kidney and a 2 mm stone in the left kidney. He states he thinks he passed the stone on the right side and it was very small. CTAP-06/07/23-3 mm stone in the right kidney, 2 mm stone in the left kidney. I will prescribe AndroGel and Cialis. Will check a 24 hour urine collection follow-up post. [facility] Medical History Left ankle injury Back pain Coarse tremors Elevated liver enzymes Panic disorder Surgical History History of appendectomy Family History Mother No problems noted. Father Prostate cancer Paternal Grandfather Prostate cancer Social History Housing: House Alcohol intake: never Patient Tobacco Use Status: Current everyday Tobacco user Tobacco use type: Cigarette Cigarettes Per Day: 4 e-Cigarette/Vaping Use: Never Used Second Hand Smoke Exposure: Yes Substance Use Type: Crack/Cocaine service: No Current occupational status: disabled Cognitive needs: No Hearing needs: No Vision needs: Yes (Glasses) Review of Systems Const All systems reviewed & are unremarkable except as noted in HPI and below Reports no additional complaints Eyes Reports no additional complaints ENT Reports no additional complaints Card Reports no additional complaints Resp Reports no additional complaints GI Reports no additional complaints Reports as per HPI Musc Reports no additional complaints Skin/Breast Reports system reviewed and no additional complaints, except as documented Neuro Reports no additional complaints Psych Reports no additional complaints Endo Reports no additional complaints Roberto/Lymph Reports no additional complaints Aller/Immun Reports no additional complaints Results Reviewed Results Reviewed: Date of Service: 05/30/24 CLINICAL HISTORY: R33.9 - Retention of urine, unspecified US Urinary Bladder Comparison: None Findings: The urinary bladder is unremarkable. Prevoid volume: 210 mL. Postvoid volume: 11.2 mL Ureteral jets are not visualized bilaterally. Prostate gland measures 3.7 x 3.6 x 3.5 cm IMPRESSION: Normal urinary bladder. Date of Service: 06/07/23 CT ABDOMEN AND PELVIS WITHOUT CONTRAST CLINICAL INFORMATION: Left flank pain history of stone COMPARISON: KUB radiograph from 08/25/2021, ultrasound abdomen from 09/01/2017 CT abdomen and pelvis from 12/22/2016 TECHNIQUE: Multidetector volumetric imaging was performed from the superior aspect of the liver through the pubic symphysis. Sagittal and coronal reformatted images were obtained on the technologist's workstation. This CT examination was performed using dose optimization techniques as appropriate, variously including the following: *Automated exposure control *Adjustment of mA and/or kV according to patient size (this includes techniques or standardized protocols for targeted exams where dose is matched to indication/reason for exam; i.e. extremities or head) *Use of iterative reconstruction technique DLP: 570 mGy-cm FINDINGS: LUNG BASES: Bibasilar atelectasis. No pneumothorax. No large pleural effusion. LIVER, GALLBLADDER, AND BILIARY TREE: Liver is borderline enlarged. Focal hypodense focus adjacent to the falciform ligament may reflect a region of focal fatty infiltration. No focal hepatic lesion or biliary ductal dilatation is present. The gallbladder is surgically absent. Common bile duct measures up to 11 mm. PANCREAS: Unremarkable. SPLEEN: Normal punctate calcified granuloma throughout the splenic parenchyma. ADRENAL GLANDS: Unremarkable. KIDNEYS AND URETERS: Right-sided nephrolithiasis the largest measuring up to 3 mm in the right renal interpolar/upper pole region without hydronephrosis. Left-sided nephrolithiasis measuring up to 2 mm without hydronephrosis. BLADDER: Unremarkable. GASTROINTESTINAL TRACT: Small hiatal hernia. Mild fecal loading of the colon. Few mildly prominent loops of small bowel in the left upper abdomen. The small and large bowel are unremarkable. The appendix is not definitively visualized.. ABDOMINAL WALL: Small hiatal hernia. Small fat filled bilateral inguinal hernias. LYMPH NODES: Multiple mildly prominent though nonenlarged bilateral inguinal and mesenteric lymph nodes are noted. No enlarged lymph nodes per size criteria. VASCULAR: Abdominal aorta is nonaneurysmal. PELVIC VISCERA: Prostate measures 3.9 cm with calcifications within its body. OSSEOUS STRUCTURES: Multilevel degenerative changes of the thoracolumbar and lumbosacral spine with large anterior spur along the anterior superior endplate of L4 IMPRESSION: 1. No acute process of the abdomen or pelvis identified. 2. Bilateral nephrolithiasis without hydronephrosis. 3. Few mildly prominent loops of small bowel in the left upper abdomen without evidence of obstruction. 4. Multiple mildly prominent though nonenlarged bilateral inguinal and mesenteric lymph nodes are noted. 5. Liver is borderline enlarged. Focal hypodense focus adjacent to the falciform ligament may reflect a region of focal fatty infiltration. 6. Status post cholecystectomy. Common bile duct measures up to 11 mm. 7. Prostate measures 3.9 cm with calcifications within its body. 8. Small hiatal hernia. Small fat filled bilateral inguinal hernias. Assessment & Plan Assessment & Plan (1) Bilateral kidney stones: Code(s): N20.0 - Calculus of kidney Category: Medical (2) Low testosterone: Code(s): R79.89 - Other specified abnormal findings of blood chemistry Category: Medical (3) Erectile dysfunction: Code(s): N52.9 - Male erectile dysfunction, unspecified Category: Medical (4) Methadone use: Code(s): F11.90 - Opioid use, unspecified, uncomplicated Category: Medical (5) History of urinary retention: Code(s): Z87.898 - Personal history of other specified conditions Category: Medical Plan - Continue taking tamsulosin as prescribed for urinary symptoms. - Use Cialis for erectile dysfunction - Fast before any bloodwork as instructed. - ultrasound for kidney - cont to monitor - Vitamin B6 for kidney stone prevention. - Monitor any new urinary symptoms and report them promptly. - Follow up as planned or if new symptoms arise. Patient Instructions: The patient had an opportunity to ask questions regarding treatment plan. The patient expressed understanding and agreement with the above treatment plan. The patient is aware they should contact our office by phone for worsening of their current condition or the appearance of new symptoms. Compliance is encouraged with any medications and followup testing that is ordered. It is a privilege to be allowed the opportunity to participate in the urologic care of your patient. If you have any questions or concerns regarding treatment for the above conditions please do not hesitate to contact me. The office telephone contact is [phone]. This note is constructed in part using voice recognition software. While every effort has been made to ensure accuracy senior sales director errors may have been included. Yours sincerely, Oli Adam MD Scribe Plan - Not visible on output: Patient was informed and verbally consented to the use of an ambient scribe for clinic note documentation during this visit. Coding Level of Care Code Est Pt Level 4 (77713) Diagnoses Bilateral kidney stones N20.0 Low testosterone R79.89 Erectile dysfunction N52.9 Methadone use F11.90 History of urinary retention Z87.898
== END 2024-08-22 14:23 | disposition home or self-care (01) ==
LOC: HO.HUSH 13:34
PROVIDERS: PCP Physician Assistant; Visit Provider Urology
DX: N20.0 Calculus of kidney (principal); R79.89 Other specified abnormal findings of blood chemistry; N52.9 Male erectile dysfunction, unspecified; F11.90 Opioid use, unspecified, uncomplicated; Z87.898 Personal history of other specified conditions
CPT/HCPCS: 99214

== ENCOUNTER → 2024-08-22 13:34 | Outpatient (BNVA) | payer OTHER, SELFPAY | PROVIDERS: PCP Physician Assistant; Visit Provider Urology | DX: N20.0 Calculus of kidney (principal); R79.89 Other specified abnormal findings of blood chemistry; N52.9 Male erectile dysfunction, unspecified; F11.90 Opioid use, unspecified, uncomplicated; Z87.898 Personal history of other specified conditions; Z80.42 Family history of malignant neoplasm of prostate | CPT/HCPCS: 99212 ==

== ENCOUNTER → 2024-08-28 10:01 | Outpatient (REF) | payer OTHER, SELFPAY ==
[2024-08-28 11:54] LABS: Hematocrit 47.6 % (42.0-52.0); Hemoglobin 15.3 g/dl (14.0-18.0); Mean Corpuscular HGB Conc 32.1 g/dl (31.0-36.0); Mean Corpuscular Hemoglobin 29.8 pg (27.0-33.0); Mean Corpuscular Volume 92.8 fL (80.0-98.0); Mean Platelet Volume 11.1 fL (9.4-12.4); Platelet Count 221 X10*3/uL (160-400); Red Blood Count 5.13 X10*6/uL (4.60-5.80); White Blood Count 4.5 X10*3/uL (4.8-10.8)
[2024-08-28 12:53] LABS: Alanine Aminotransferase 136 U/L (0-40); Albumin Level 4.4 g/dL (3.5-5.0); Alkaline Phosphatase 155 U/L (39-117); Anion Gap 10 (12-20); Aspartate Amino Transferase 94 U/L (5-37); Bilirubin Total 0.4 mg/dL (0.0-1.0); Blood Urea Nitrogen 14 mg/dL (9-16); Calcium 9.4 mg/dL (8.4-10.2); Carbon Dioxide 31 mmol/L (22-29); Chloride 103 mmol/L (96-108); Estimated Glomerular Filt Rate > 60; Glucose Fasting 79 mg/dL (60-99); Potassium 4.5 mmol/L (3.3-5.1); Sodium 139 mmol/L (135-145); Total Protein 7.9 g/dL (6.5-8.0)
[2024-08-28 13:01] LABS: TSH reflex Free T4 1.53 uIU/mL (0.32-4.0)
[2024-08-28 13:04] LABS: Prostate Specific Antigen 1.24 ng/mL (<0.05-4.0)
[2024-08-28 13:28] LABS: Folate 9.2 ng/mL (> or = 4.0); Vitamin B12 389 pg/mL (200-900)
[2024-08-29 19:02] LABS: Homocysteine 12.3 umol/L (< or = 13.5)
[2024-08-31 06:22] LABS: Methylmalonic Acid 882 nmol/L (55-335)
[2024-09-01 21:54] LABS: Testosterone, Total 295 ng/dL (250-1100)
== END ==
LOC: HO.SL 10:01
PROVIDERS: Absent Provider Urology; PCP Physician Assistant; Visit Provider Physician Assistant Medical
DX: R33.9 Retention of urine, unspecified (principal); G47.00 Insomnia, unspecified; N20.0 Calculus of kidney; N52.9 Male erectile dysfunction, unspecified; R79.89 Other specified abnormal findings of blood chemistry; R53.83 Other fatigue; G47.9 Sleep disorder, unspecified; Z13.1 Encounter for screening for diabetes mellitus; G47.33 Obstructive sleep apnea (adult) (pediatric); Z12.5 Encounter for screening for malignant neoplasm of prostate; Z13.6 Encounter for screening for cardiovascular disorders
CPT/HCPCS: 36415; 80053; 82306; 82607; 82746; 83090; 83921; 84153; 84402; 84403; 84443; 85027; 95806

== ENCOUNTER → 2024-08-28 10:10 | Outpatient (BNV) | payer OTHER, SELFPAY | PROVIDERS: Absent Provider Urology; PCP Physician Assistant; Visit Provider Psychiatry & Neurology Neurology | DX: G47.33 Obstructive sleep apnea (adult) (pediatric) (principal) | CPT/HCPCS: 95806 ==

== ENCOUNTER 2024-12-13 21:09 | Emergency (ER) | payer OTHER, SELFPAY ==
[2024-12-13 21:10] VITALS: BP 147/92; PULSE 107; RESP 16; TEMP 36.5; O2SAT 100; BMI 30.1
--- NOTE | 2024-12-13 21:26 | ECG_ITS ---
Test Reason : ABD PAIN Blood Pressure : */* mmHG Vent. Rate : 89 BPM Atrial Rate : 89 BPM P-R Int : 184 ms QRS Dur : 88 ms QT Int : 368 ms P-R-T Axes : 29 44 16 degrees QTcB Int : 447 ms Normal sinus rhythm Normal ECG When compared with ECG of 19-Jun-2023 16:44, No significant change was found Referred By: Generic ED Physician Electronically Signed By: KELSEY SIDDIQUI MD
--- OUTSIDE RECORDS SUMMARY | 2024-12-13 21:39 | XMS_ITS | Patient Health Record ---
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 Name Role Phone Stepan VINCENT, Ramesh Primary Care Provider Unavailab Bruce Malagon Unavailable [phone] Niru Shipley Unavailable Unavailable Reason For Referral No Information Medications Medication SIG (Take, Route, Fr equency, Duration) Notes Start Date End Date Status Stool Softener 2 capsules Orally Daily Active KlonoPIN 2 MG Orally Active Suboxone Active Omeprazole 20 MG 1 capsule Orally twice a day Active Problems Problem Type SNOMED Code ICD Code Onset Dates Problem Status W/U Status Risk Notes Problem Chronic hepatitis C (463972015) Chronic hepatitis C without mention of hepatic coma (070.54) Active confirmed Problem Irritable bowel syndrome (07635497) Irritable bowel syndrome (564.1) Active confirmed Problem Left upper quadrant pain (409327411) Abdominal pain, left upper quadrant (789.02) Active confirmed Problem Left lower quadrant pain (105888660) Abdominal pain, left lower quadrant (789.04) Active confirmed Problem Imaging of gastrointestinal tract abnormal (439104999) Nonspecific abnormal findings on radiological and other examination of gastrointestinal tract (793.4) Active confirmed Problem Constipation (16206055) Constipation (564.00) Active confirmed Problem 63638891 Abdominal pain, epigastric (R10.13) Active confirmed Problem 390601663 Gastroesophageal reflux disease, esophagitis presence not specified (K21.9) Active confirmed Plan Of Treatment Future Test Test Name Order Date UPPER GI ENDOSCOPY 12/10/2015 Insurance Providers Payer Name Payer Address Payer Phone Subscriber Number Group Number Insured Name Patient Relationship to Insured Coverage Start Date Coverage End Date MEDICARE OF [place] [address] [place], [place] [id number] PRICILA CHÁVEZ Self - patient is the insured MEDICAID OF [facility] [address] [place] [address] [phone] [id number] PRICILA CHÁVEZ Self - patient is the insured Medical (General) History Medical History History ICD Code Positive Hep C Ab, but neg H ep C viral load in 08/2011--normal LFT's in 08/2013--normal CT of abdomen in 04/2013 except for tiny kidney stones Kidney stones Denies GA,DM,CVA,Lung disease,renal dise ase Depression and anxiety GERD and abdominal pain--- angelina barnes had a normal CAT scan of the abdomen on December 01, 2015, and normal LFTs, CBC, and lipase in the emergency room substance abuse Surgical History Surgery Date(Month/Year) Appendectomy 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
[2024-12-13 21:51] LABS: MANUAL DIFF FLAG NO
[2024-12-13 21:53] LABS: Hematocrit 46.3 % (42.0-52.0); Hemoglobin 16.0 g/dl (14.0-18.0); Imm Gran Abs Auto 0.01 X10*3/uL (0.00-0.03); Imm Gran Pct Auto 0.1 % (0.0-0.4); Lymphocytes Absolute Auto 1.5 X10*3/uL (1.2-4.9); Mean Corpuscular HGB Conc 34.6 g/dl (31.0-36.0); Mean Corpuscular Hemoglobin 30.0 pg (27.0-33.0); Mean Corpuscular Volume 86.7 fL (80.0-98.0); NRBC Abs Auto 0.000 X10*3/uL (0.0-0.012); NRBC Pct Auto 0.0 /100WBC (0.0-0.2); Platelet Count 264 X10*3/uL (160-400); Red Blood Count 5.34 X10*6/uL (4.60-5.80); White Blood Count 6.8 X10*3/uL (4.8-10.8)
[2024-12-13 22:06] LABS: Alanine Aminotransferase 144 U/L (0-40); Albumin Level 5.1 g/dL (3.5-5.0); Alkaline Phosphatase 214 U/L (39-117); Anion Gap 15 (12-20); Aspartate Amino Transferase 84 U/L (5-37); Blood Urea Nitrogen 15 mg/dL (9-16); Calcium 10.6 mg/dL (8.4-10.2); Carbon Dioxide 33 mmol/L (22-29); Chloride 96 mmol/L (96-108); Creatinine Clr Calc Pharmacy 105.9; Estimated Glomerular Filt Rate > 60; Lipase 25 U/L (8-78); Magnesium 2.2 mg/dL (1.6-2.6); Potassium 3.9 mmol/L (3.3-5.1); Sodium 140 mmol/L (135-145); Total Protein 9.0 g/dL (6.5-8.0)
[2024-12-13 22:14] LABS: Troponin-I High Sensitivity < 2.7 ng/L (<3.5-35.0)
--- NOTE | 2024-12-13 22:23 | ED.NAVMDI ---
HPI - Nausea/Vomiting/Diarrhea General Chief complaint: Nausea/Vomiting/Diarrhea Stated complaint: Abdominal pain/Vomiting Time Seen by Provider: 12/13/24 21:52 Source: patient Mode of arrival: ambulatory Limitations: no limitations History of Present Illness ED Provider: DR. Springer HPI Narrative: 48-year-old male came in for evaluation of epigastric abdominal pain, nausea, vomiting since yesterday after eating unwashed fruits at home, symptoms started with epigastric pain then followed by nausea and vomiting, last vomit was this morning, declined diarrhea or blood in the stool, had formed stool bowel movement this morning , passing flatus, no fever, no chills. History of appendectomy. Related Data Home Medications ?Medication ?Instructions ?Recorded ?Confirmed hydroxyzine HCl 25 mg tablet 25 mg PO QID 05/10/23 08/22/24 clonidine HCl 0.1 mg tablet 0.1 mg PO 05/08/24 08/22/24 methadone 5 mg/0.5 mL oral syringe 5 mg PO DAILY 05/08/24 08/22/24 (FOR ORAL USE ONLY) Previous Rx's ?Medication ?Instructions ?Recorded ibuprofen 600 mg tablet 600 mg PO BID PRN pain 30 days #30 04/02/23 tabs ondansetron 4 mg disintegrating 4 mg PO Q6-8H PRN nausea and 06/07/23 tablet vomiting #7 tabs clonazepam 1 mg tablet 1 mg PO BEDTIME 14 days #14 tabs 12/27/23 melatonin 5 mg capsule 5 mg PO DAILY Insomnia 30 days #30 04/24/24 caps sertraline 50 mg tablet 50 mg PO DAILY 90 days #90 tabs 05/12/24 naproxen 500 mg tablet,delayed 500 mg PO BID PRN pain #14 tabs 06/16/24 release tadalafil 5 mg tablet (Cialis) 5 mg PO DAILY #30 tabs 06/27/24 quetiapine 50 mg tablet (Seroquel) 50 mg PO BEDTIME 90 days #90 tabs 07/31/24 cholecalciferol (vitamin D3) 50 50 mcg PO DAILY low vit d 90 days 08/28/24 mcg (2,000 unit) capsule #90 caps testosterone 2 pump topical DAILY low 08/29/24 testosterone 30 days #75 grams pyridoxine (vitamin B6) 50 mg 50 mg PO DAILY #90 tabs 09/16/24 tablet bupropion HCl 150 mg 24 hr tablet, 150 mg PO QAM 30 days #30 tabs 09/24/24 extended release (Wellbutrin XL) mecobalamin (vitamin B12) 1,000 1,000 mcg sublingual BEDTIME b12 09/26/24 mcg disintegrating deficient 90 days #90 tabs tablet,sublingual omeprazole 20 mg capsule,delayed 20 mg PO BID GERD 1 month #60 caps 11/12/24 release tamsulosin 0.4 mg capsule 0.8 mg (2 x 0.4 mg) PO DAILY 30 11/19/24 days #30 caps omeprazole 40 mg capsule,delayed 40 mg PO DAILY #14 caps 12/13/24 release ondansetron 4 mg disintegrating 4 mg PO Q8H PRN nausea and 12/13/24 tablet vomiting #5 tabs Allergies Allergy/AdvReac Type Severity Reaction Status Date / Time No Known Allergies (No Known Allergy Verified 12/13/24 21:12 Allergies*) Review of Systems Review of Systems: all other systems are reviewed and are negative Constitutional: Reports as per HPI and Reports no additional constitutional complaints Eyes: Reports as per HPI and Reports no additional eye complaints Reports system reviewed and no additional complaints, except as documented Cardiovascular: Reports as per HPI and Reports no additional cardiovascular complaints Respiratory: Reports as per HPI and Reports no additional respiratory complaints Gastrointestinal: Reports as per HPI and Reports no additional gastrointestinal complaints Genitourinary: Reports no additional female genitourinary complaints Musculoskeletal: Reports no additional musculoskeletal complaints Skin/Breast: Reports system reviewed and no additional complaints, except as docu Psychiatric: Reports no additional psychiatric complaints Endocrine: Reports no additional endocrine complaints Hematologic/Lymphatic: Reports no additional hematologic/lymphatic complaints Allergic/Immunologic: Reports no additional allergic/immunologic complaints Reports system reviewed and no additional complaints, except as documented and Reports Abnormal speech present [facility] Past Medical History Medical History Left ankle injury Back pain Coarse tremors Elevated liver enzymes Panic disorder Surgical History History of appendectomy Family History Family History Mother No problems noted. Father Prostate cancer Paternal Grandfather Prostate cancer Social History Social History Housing: House Alcohol intake: never Patient Tobacco Use Status: Current everyday Tobacco user Tobacco use type: Cigarette Cigarettes Per Day: 4 e-Cigarette/Vaping Use: Never Used Second Hand Smoke Exposure: Yes Substance Use Type: Crack/Cocaine Advance Directives: No Advance Directives Information Provided: No Do you have a plan to hurt others: No Plan service: No Current occupational status: disabled Cognitive needs: No Hearing needs: No Vision needs: Yes (Glasses) Physical Exam Vital Signs: Vital Signs: Last Vital Signs Temp 98.1 F 12/13/24 23:46 Pulse 85 12/13/24 23:46 Resp 16 12/13/24 23:46 BP 144/88 H 12/13/24 23:46 Pulse Ox 96 12/13/24 23:46 O2 Del Method Room Air 12/13/24 23:46 BMI result Body Mass Index 30.1 Vital signs have been reviewed and appear to be correct. Blood pressure elevated. Heart rate normal. Respiratory rate normal. Temperature normal. Oxygen saturation normal. Appearance: Alert. Oriented X3. No acute distress. Head: Normal external exam. Normocephalic. Atraumatic. No Bolanos signs noted. No raccoon eyes noted Eyes: PERRLA. EOMI. Conjunctiva and sclera normal. Eyelids normal. ENT: TM's Normal. Pharynx normal. Uvula midline. Moist mucous membranes. No trismus noted. No drooling noted. No muffled voice noted. Neck: Normal inspection. Neck supple. FROM. No adenopathy. Thyroid Normal. No meningeal signs. No neck mass noted. CVS: Normal heart rate and rhythm. Heart sound normal. No murmurs noted. Pulses normal throughout. Respiratory: No respiratory distress. Painless inspiration. Breath sounds normal. No wheezes/rales/rhonchi noted. Chest nontender. No accessory muscle usage noted or decreased air movement noted. Abdomen: Soft, epigastric tenderness, no guarding, no rebound tenderness. Bowel sounds normal in all 4 quadrants. No distention noted. No organomegaly noted. No visible injury noted. Back: No CVA tenderness. Full range of motion noted. Skin: Skin warm and dry. Normal skin color. Normal skin turgor. No rashes/lesions/lacerations noted. Extremities: No lower extremity edema. Extremities exhibit normal range of motion. Extremities nontender. Neuro: Oriented X 3. Cranial nerve exam: II-XII are grossly intact No motor deficit. No sensory deficit. Reflexes normal. Course Reevaluation(s) Reevaluation #1: patient received IV fluid and omeprazole with Maalox patient feels better, improvement of the nausea and abdominal pain, able now to tolerate p.o. intake without nausea or vomiting. Repeat abdominal exam shows no tenderness, no guarding, no rebound tenderness. improvement of tachycardia after patient relax and received 1 L of normal saline. Time: 01:25 Medications Administered Discontinued Medications Generic Name Dose Route Start Last Admin Trade Name Freq PRN Reason Stop Dose Admin Al Hydroxide/Mg Hydroxide 30 ml 12/13/24 22:04 12/13/24 22:40 Magnesium Hydrox/Alum Hydrox 30 Ml Oral.Susp PO 12/13/24 22:05 30 ml ONCE ONE Administration Famotidine 20 mg 12/13/24 22:04 12/13/24 22:42 Famotidine/Pf 20 Mg/2 Ml Vial IVPUSH 12/13/24 22:05 20 mg ONCE ONE Administration Sodium Chloride 1,000 mls @ 999 mls/hr 12/13/24 22:04 12/13/24 22:40 Ns IV 12/13/24 23:04 999 mls/hr .Q1H1M ONE Administration Ondansetron HCl 4 mg 12/13/24 22:04 12/13/24 22:43 Ondansetron Hcl 4 Mg/2 Ml Vial IVPUSH 12/13/24 22:05 4 mg ONCE ONE Administration Medical Decision Making Differential Diagnosis Differential Diagnoses: The differential diagnosis associated with the presentation includes ( Food poisoning, gastritis, gastroenteritis, colitis, diverticulitis, anemia, electrolyte derangement, dehydration.) Admission/Observation Consideration of admission/observation: Escalation of care including admission/observation considered Lab Data MDM Lab Attestation statement: I reviewed the patient's lab results. 12/13/24 21:46 12/13/24 21:46 Labs: Lab Results 12/13/24 Range/Units 21:46 WBC 6.8 (4.8-10.8) X10*3/uL RBC 5.34 (4.60-5.80) X10*6/uL Hgb 16.0 (14.0-18.0) g/dl Hct 46.3 (42.0-52.0) % MCV 86.7 (80.0-98.0) fL MCH 30.0 (27.0-33.0) pg MCHC 34.6 (31.0-36.0) g/dl RDW 13.2 (11.0-16.0) % Plt Count 264 (160-400) X10*3/uL MPV 10.2 (9.4-12.4) fL Immature Gran % (Auto) 0.1 (0.0-0.4) % Neut % (Auto) 69.0 (45-73) % Lymph % (Auto) 22.1 (20-40) % Tucker % (Auto) 6.6 (2-11) % Eos % (Auto) 1.9 (0-4) % Baso % (Auto) 0.3 (0-2) % Lymph # (Auto) 1.5 (1.2-4.9) X10*3/uL Tucker # (Auto) 0.5 (0.1-1.2) X10*3/uL Eos # (Auto) 0.1 (0.0-0.4) X10*3/uL Baso # (Auto) 0.0 (0.0-0.2) X10*3/uL Abs Immat Gran (auto) 0.01 (0.00-0.03) X10*3/uL Absolute Neuts (auto) 4.7 (2.0-8.3) x10*3/uL Absolute Nucleated RBC 0.000 (0.0-0.012) X10*3/uL Nucleated RBC % (auto) 0.0 (0.0-0.2) /100WBC Sodium 140 (135-145) mmol/L Potassium 3.9 (3.3-5.1) mmol/L Chloride 96 (96-108) mmol/L Carbon Dioxide 33 H (22-29) mmol/L Anion Gap 15 (12-20) BUN 15 (9-16) mg/dL Creatinine 0.89 (0.5-1.4) mg/dL Estim Creat Clear Calc 105.9 Estimated GFR > 60 Random Glucose 121 H (60-115) mg/dL Calcium 10.6 H D (8.4-10.2) mg/dL Magnesium 2.2 (1.6-2.6) mg/dL Total Bilirubin 0.9 (0.0-1.0) mg/dL Direct Bilirubin 0.4 (0.0-0.5) mg/dL AST 84 H (5-37) U/L ALT 144 H (0-40) U/L Alkaline Phosphatase 214 H (39-117) U/L Troponin I High Sens < 2.7 (<3.5-35.0) ng/L Total Protein 9.0 H (6.5-8.0) g/dL Albumin 5.1 H (3.5-5.0) g/dL Lipase 25 (8-78) U/L Discharge Plan Discharge Clinical Impression: Food poisoning, Gastritis Patient Disposition: Home, Self-Care Instructions: Food Poisoning (ED) Prescriptions: New ondansetron 4 mg tablet,disintegrating 4 mg PO Q8H PRN (Reason: nausea and vomiting) Qty: 5 0RF omeprazole 40 mg capsule,delayed release(DR/EC) 40 mg PO DAILY Qty: 14 0RF No Action ibuprofen 600 mg tablet 600 mg PO BID PRN (Reason: pain) 30 Days Qty: 30 0RF clonazepam 1 mg tablet 1 mg PO BEDTIME 14 Days Qty: 14 0RF Rx Instructions: administer 30 minutes before bedtime sertraline 50 mg tablet 50 mg PO DAILY 90 Days Qty: 90 1RF quetiapine [Seroquel] 50 mg tablet 50 mg PO BEDTIME 90 Days Qty: 90 1RF cholecalciferol (vitamin D3) 50 mcg (2,000 unit) capsule 50 mcg PO DAILY MDD 50mcg 90 Days Qty: 90 3RF Rx Instructions: take one capsule daily at bedtime testosterone 20.25 mg/1.25 gram (1.62 %) gel in metered-dose pump 2 pump topical DAILY 30 Days Qty: 75 1RF pyridoxine (vitamin B6) 50 mg tablet 50 mg PO DAILY Qty: 90 1RF bupropion HCl [Wellbutrin XL] 150 mg tablet extended release 24 hr 150 mg PO QAM 30 Days Qty: 30 3RF mecobalamin (vitamin B12) 1,000 mcg tablet,disintegrating 1,000 mcg sublingual BEDTIME MDD 1000mcg 90 Days Qty: 90 0RF Rx Instructions: place tablet under tongue and allow to dissolve for at least30 secs before swallowing omeprazole 20 mg capsule,delayed release(DR/EC) 20 mg PO BID MDD 40mg 30 Days Qty: 60 2RF Rx Instructions: Take one capsule by mouth in the AM and one capsule in the PM daily for GERD/ ACID Reflux. tamsulosin 0.4 mg capsule 0.8 mg PO DAILY 30 Days Qty: 30 0RF naproxen 500 mg tablet,delayed release (DR/EC) 500 mg PO BID PRN (Reason: pain) Qty: 14 0RF ondansetron 4 mg tablet,disintegrating 4 mg PO Q6-8H PRN (Reason: nausea and vomiting) Qty: 7 0RF hydroxyzine HCl 25 mg tablet 25 mg PO QID melatonin 5 mg capsule 5 mg PO DAILY MDD 10mg 30 Days Qty: 30 3RF Rx Instructions: May take 1-2 capsules of melatonin every night to regulate sleep cycle. clonidine HCl 0.1 mg tablet 0.1 mg PO methadone 5 mg/0.5 mL syringe 5 mg PO DAILY tadalafil [Cialis] 5 mg tablet 5 mg PO DAILY Qty: 30 5RF Rx Instructions: [id number] [facility] [id number] Member [id number] USE COUPON not insurance Referrals: Contreras Nielson PA-C [Primary Care Provider, Internal Medicine] Print Language: Luxembourgish
[2024-12-13] MEDS: Magnesium Hydrox/Alum Hydrox 30 ML ORAL.SUSP PO (22:40)
[2024-12-13 23:46] VITALS: BP 144/88; PULSE 85; RESP 16; TEMP 36.7; O2SAT 96
[2024-12-14 01:34] VITALS: BP 118/76; PULSE 74; RESP 14; TEMP 36.6; O2SAT 96
== END 2024-12-14 01:43 | disposition home or self-care (01) ==
PROVIDERS: Emergency Provider Emergency Medicine; PCP Physician Assistant
DX: K29.70 Gastritis, unspecified, without bleeding (principal); A05.9 Bacterial foodborne intoxication, unspecified
CPT/HCPCS: 36415; 80053; 82248; 83690; 83735; 84484; 85025; 93005; 96374; 96375; 99284; J1308; J2405

== ENCOUNTER → 2024-12-13 21:26 | Outpatient (BNV) | payer OTHER, SELFPAY | PROVIDERS: Emergency Provider Emergency Medicine; PCP Physician Assistant; Visit Provider Internal Medicine Cardiovascular Disease | DX: R10.13 Epigastric pain (principal) | CPT/HCPCS: 93010 ==

== ENCOUNTER 2024-12-16 09:48 | Emergency (ER) | payer OTHER, SELFPAY ==
--- NOTE | ~2024-12-16 | XR_ITS ---
EXAMINATION: XR CHEST CLINICAL INFORMATION: chest pain COMPARISON: 12/28/2017 TECHNIQUE: Frontal view of the chest was obtained. FINDINGS: No significant abnormality is noted involving the heart, lungs, mediastinum, bony thorax or soft tissues. XR/XR chest 1V IMPRESSION: No acute disease Electronically signed by: Desmond Pyle MD 12/16/2024 10:56 AM EDT
--- NOTE | ~2024-12-16 | CT_ITS ---
CLINICAL HISTORY: left sided abdominal pain CT of the abdomen and pelvis utilizing intravenous contrast. Comparison 06/07/2023. Findings: Cholecystectomy. The liver is unremarkable. There are possible small bilateral renal stones. No ureteral stones are identified and there is no hydronephrosis. There are multiple splenic granulomas. There is minimal infiltration of the peripancreatic fat that is indeterminate. No abdominal aortic aneurysm. No diverticulitis is identified. No bowel obstruction. Appendix not seen. Small umbilical hernia. The bladder is not significantly dilated. No free fluid in the pelvis. There is prominent facet disease in the lower lumbar spine. Impression: No diverticulitis or bowel obstruction. Possible small nonobstructive renal stones. Minimal infiltration of the peripancreatic fat may be incidental although minimal pancreatitis is a possibility. Mild wall thickening of the sigmoid colon and rectum likely lack of distention. Mild colitis/proctitis is technically a possibility. This document has been electronically signed by: Lenard Ortiz MD on 12/16/2024 19:51:22
--- NOTE | 2024-12-16 09:51 | ECG_ITS ---
Test Reason : CP Blood Pressure : */* mmHG Vent. Rate : 88 BPM Atrial Rate : 88 BPM P-R Int : 170 ms QRS Dur : 88 ms QT Int : 358 ms P-R-T Axes : 29 41 18 degrees QTcB Int : 433 ms Normal sinus rhythm Normal ECG When compared with ECG of 13-Dec-2024 21:34, No significant change was found Referred By: Generic ED Physician Electronically Signed By: EVANS DAVIS
--- NOTE | 2024-12-16 10:03 | MHC.EDTECH ---
Patient brought into triage area,EKG taken per order and signed by provider, labs drawn and sent to lab.
[2024-12-16 10:07] LABS: MANUAL DIFF FLAG NO
[2024-12-16 10:12] LABS: Hematocrit 43.3 % (42.0-52.0); Hemoglobin 14.6 g/dl (14.0-18.0); Imm Gran Abs Auto 0.01 X10*3/uL (0.00-0.03); Imm Gran Pct Auto 0.2 % (0.0-0.4); Lymphocytes Absolute Auto 1.6 X10*3/uL (1.2-4.9); Mean Corpuscular HGB Conc 33.7 g/dl (31.0-36.0); Mean Corpuscular Hemoglobin 30.1 pg (27.0-33.0); Mean Corpuscular Volume 89.3 fL (80.0-98.0); NRBC Abs Auto 0.000 X10*3/uL (0.0-0.012); NRBC Pct Auto 0.0 /100WBC (0.0-0.2); Platelet Count 251 X10*3/uL (160-400); Red Blood Count 4.85 X10*6/uL (4.60-5.80); White Blood Count 4.7 X10*3/uL (4.8-10.8)
[2024-12-16 10:14] LABS: INTERNATIONAL NORM RATIO 0.9 (0.9-1.1); Prothrombin Time 10.7 SEC (10.9-12.4)
[2024-12-16 10:22] LABS: Anion Gap 12 (12-20); Blood Urea Nitrogen 13 mg/dL (9-16); Calcium 9.6 mg/dL (8.4-10.2); Carbon Dioxide 27 mmol/L (22-29); Chloride 103 mmol/L (96-108); Estimated Glomerular Filt Rate > 60; Potassium 3.9 mmol/L (3.3-5.1); Sodium 138 mmol/L (135-145)
--- NOTE | 2024-12-16 10:22 | ED.GENADULT ---
HPI - General Adult General Chief complaint: General Medical Stated complaint: CP , vomiting Time Seen by Provider: 12/16/24 16:09 Source: patient, RN notes reviewed and old records reviewed Mode of arrival: ambulatory Limitations: no limitations History of Present Illness ED Provider: Christen CORONADO narrative: 49-year-old male with past medical history significant for depression, history of IV drug abuse in remission, GERD, obesity, anxiety, panic disorder, presents for evaluation of chest pain. He was seen here 3 days ago for upper abdominal pain. He had labs and was ultimately discharged home with omeprazole. The patient reports his upper abdominal pain did feel better when he left, but about 12 hours later returned after he ate lunch he reports his abdominal pain is still present but less severe. This morning he developed chest pain. He does not have a history of appendectomy several years ago. He reports his last bowel movement was 5 days ago. Denies any black or bloody stool Related Data Home Medications ?Medication ?Instructions ?Recorded ?Confirmed hydroxyzine HCl 25 mg tablet 25 mg PO QID 05/10/23 08/22/24 clonidine HCl 0.1 mg tablet 0.1 mg PO 05/08/24 08/22/24 methadone 5 mg/0.5 mL oral syringe 5 mg PO DAILY 05/08/24 08/22/24 (FOR ORAL USE ONLY) Previous Rx's ?Medication ?Instructions ?Recorded ibuprofen 600 mg tablet 600 mg PO BID PRN pain 30 days #30 04/02/23 tabs ondansetron 4 mg disintegrating 4 mg PO Q6-8H PRN nausea and 06/07/23 tablet vomiting #7 tabs clonazepam 1 mg tablet 1 mg PO BEDTIME 14 days #14 tabs 12/27/23 melatonin 5 mg capsule 5 mg PO DAILY Insomnia 30 days #30 04/24/24 caps sertraline 50 mg tablet 50 mg PO DAILY 90 days #90 tabs 05/12/24 naproxen 500 mg tablet,delayed 500 mg PO BID PRN pain #14 tabs 06/16/24 release tadalafil 5 mg tablet (Cialis) 5 mg PO DAILY #30 tabs 06/27/24 quetiapine 50 mg tablet (Seroquel) 50 mg PO BEDTIME 90 days #90 tabs 07/31/24 cholecalciferol (vitamin D3) 50 50 mcg PO DAILY low vit d 90 days 08/28/24 mcg (2,000 unit) capsule #90 caps testosterone 2 pump topical DAILY low 08/29/24 testosterone 30 days #75 grams pyridoxine (vitamin B6) 50 mg 50 mg PO DAILY #90 tabs 09/16/24 tablet bupropion HCl 150 mg 24 hr tablet, 150 mg PO QAM 30 days #30 tabs 09/24/24 extended release (Wellbutrin XL) mecobalamin (vitamin B12) 1,000 1,000 mcg sublingual BEDTIME b12 09/26/24 mcg disintegrating deficient 90 days #90 tabs tablet,sublingual omeprazole 20 mg capsule,delayed 20 mg PO BID GERD 1 month #60 caps 11/12/24 release tamsulosin 0.4 mg capsule 0.8 mg (2 x 0.4 mg) PO DAILY 30 11/19/24 days #30 caps omeprazole 40 mg capsule,delayed 40 mg PO DAILY #14 caps 12/13/24 release ondansetron 4 mg disintegrating 4 mg PO Q8H PRN nausea and 12/13/24 tablet vomiting #5 tabs Allergies Allergy/AdvReac Type Severity Reaction Status Date / Time No Known Allergies (No Known Allergy Verified 12/16/24 10:26 Allergies*) Review of Systems Constitutional: Constitutional: Denies body ache(s), Denies chills and Denies fever(s) Eyes: Eyes: Denies blurry vision ENT: Denies dizziness and Denies dry mouth Cardiovascular: Cardiovascular: Reports chest pain and Denies dyspnea on exertion Respiratory: Respiratory: Denies cough and Denies dyspnea on exertion Gastrointestinal: Gastrointestinal: Reports abdominal pain, Denies hematochezia, Reports constipation, Denies diarrhea, Denies loose stools, Reports nausea and Reports vomiting Musculoskeletal: Musculoskeletal: Denies back pain Integumentary/Breasts: Skin/Breast: Denies rash Neurologic: Denies dizziness Psychiatric: Psychiatric: Reports anxiety PMFSH Past Medical History Medical History Left ankle injury Back pain Coarse tremors Elevated liver enzymes Panic disorder Surgical History History of appendectomy Family History Family History Mother No problems noted. Father Prostate cancer Paternal Grandfather Prostate cancer Social History Social History Housing: House Alcohol intake: never Patient Tobacco Use Status: Current everyday Tobacco user Tobacco use type: Cigarette Cigarettes Per Day: 4 e-Cigarette/Vaping Use: Never Used Second Hand Smoke Exposure: Yes Substance Use Type: Crack/Cocaine Advance Directives: No Advance Directives Information Provided: Yes service: No Current occupational status: disabled Cognitive needs: No Hearing needs: No Vision needs: Yes (Glasses) Physical Exam ED Vital Signs: Vital Signs - 24 hr 12/16/24 10:23 12/16/24 17:32 Temperature 98.3 F 98.9 F Pulse Rate 96 86 Respiratory Rate 18 16 Blood Pressure 140/75 H 132/66 Pulse Oximetry 98 99 Oxygen Delivery Method Room Air Room Air BMI result Body Mass Index 30.0 Const General: healthy appearing, comfortable, no acute distress, alert and awake Nutritional Appearance: well nourished Orientation/consciousness: patient oriented x3 HENMT Head: Yes normocephalic and Yes atraumatic Eyes Eyelids: Yes eyelids normal Conjunctivae: conjunctivae normal Sclerae: sclerae normal Corneas: corneas normal Pupils: Equal, round and reactive pupils present EOM: EOMs intact bilaterally Neck Neck: Yes full ROM Resp Effort & Inspection: normal respiratory effort, able to speak in complete sentences, no audible wheezes and not labored Auscultation: clear to auscultation bilaterally Cardio Rate: regular rate Rhythm: regular rhythm GI Inspection: No distended Palpation (GI): Soft to palpation, not firm, no guarding and not rigid Auscultation: normoactive bowel sounds Skin General skin exam: no rashes or lesions noted and elasticity normal Neuro General: patient oriented x3 Cranial nerves: Yes Equal, round and reactive pupils present and Yes Bilaterally intact EOM present Cognition (Neuro): normal cognition Extrem Other: Moving all extremities well without any obvious deformities Course Course Course Narrative: This is a rapid medical exam performed by Juan Reza NP: Additional HPI, ROS, PE not included below will be deferred to primary provider. Patient is a 49-y/o M presenting to the ED with complaint of GERD, IV drug use in remission on methadone, JIMENEZ, panic disorder, MDD, coarse tremors presenting to the ED with complaint of ongoing nausea, vomiting and chest pain. States he was seen here Monday and dx with gastroenteritis. Last vomited around 2 hours ago. Plan: Viral serology, labs, EKG-protocol orders placed by RN prior to my arrival Medications Administered Discontinued Medications Generic Name Dose Route Start Last Admin Trade Name Michelle PRN Reason Stop Dose Admin Sodium Chloride 1,000 mls @ 999 mls/hr 12/16/24 16:45 12/16/24 18:05 Ns IV 12/16/24 17:45 Infused .Q1H1M PALLAVI Infusion Iohexol 100 ml 12/16/24 17:56 12/16/24 17:56 Iohexol 350 Mg/Ml 100 Ml Infus..Btl IV 12/16/24 17:57 100 ml ONCE ONE Administration Ondansetron HCl 4 mg 12/16/24 16:35 12/16/24 16:58 Ondansetron Hcl 4 Mg/2 Ml Vial IVPUSH 12/16/24 16:36 4 mg ONCE ONE Administration Medical Decision Making Medical Decision Making [facility] Narrative: 49-year-old male presents for evaluation of left-sided abdominal pain that radiates to his chest. He was seen here a few days ago. I did review that chart. He had a workup so far today that included labs and an EKG, his EKG is nonischemic, his labs are quite reassuring, he has a very mild leukopenia with a white count of 4.7 which is consistent with his baseline, no left shift or anemia. The patient's chemistries are significant for an elevated AST, ALT, alk phos and total protein, this is all consistent with his baseline and most likely related to a history of alcohol and drug abuse. His troponin is negative x2, he rules out for ACS. Given his symptoms are present for a few days and he did not have imaging during his recent visit we will get a CT scan of the abdomen pelvis. He has a history of appendectomy, he reports no recent bowel movement, there is a slight concern for bowel obstruction though he is quite well appearing. His exam and history is most consistent with gastritis or peptic ulcer disease. Differential Diagnosis Differential Diagnoses: The differential diagnosis associated with the presentation includes GERD Gastritis liver cirrhosis Constipation Bowel obstruction ACS Admission/Observation Consideration of admission/observation: Escalation of care including admission/observation considered patient rules out for ACS Lab Data MDM Lab Attestation statement: I reviewed the patient's lab results. as above 12/16/24 10:03 12/16/24 10:03 Labs: Lab Results 12/16/24 12/16/24 12/16/24 Range/Units 10:02 10:03 10:41 WBC 4.7 L (4.8-10.8) X10*3/uL RBC 4.85 (4.60-5.80) X10*6/uL Hgb 14.6 (14.0-18.0) g/dl Hct 43.3 (42.0-52.0) % MCV 89.3 (80.0-98.0) fL MCH 30.1 (27.0-33.0) pg MCHC 33.7 (31.0-36.0) g/dl RDW 13.1 (11.0-16.0) % Plt Count 251 (160-400) X10*3/uL MPV 10.4 (9.4-12.4) fL Immature Gran % (Auto) 0.2 (0.0-0.4) % Neut % (Auto) 51.9 (45-73) % Lymph % (Auto) 33.3 (20-40) % [place] % (Auto) 8.4 (2-11) % Eos % (Auto) 5.8 H (0-4) % Baso % (Auto) 0.4 (0-2) % Lymph # (Auto) 1.6 (1.2-4.9) X10*3/uL [place] # (Auto) 0.4 (0.1-1.2) X10*3/uL Eos # (Auto) 0.3 (0.0-0.4) X10*3/uL Baso # (Auto) 0.0 (0.0-0.2) X10*3/uL Abs Immat Gran (auto) 0.01 (0.00-0.03) X10*3/uL Absolute Neuts (auto) 2.4 (2.0-8.3) x10*3/uL Absolute Nucleated RBC 0.000 (0.0-0.012) X10*3/uL Nucleated RBC % (auto) 0.0 (0.0-0.2) /100WBC PT 10.7 L (10.9-12.4) SEC INR 0.9 (0.9-1.1) Sodium 138 (135-145) mmol/L Potassium 3.9 (3.3-5.1) mmol/L Chloride 103 (96-108) mmol/L Carbon Dioxide 27 (22-29) mmol/L Anion Gap 12 (12-20) BUN 13 (9-16) mg/dL Creatinine 0.83 (0.5-1.4) mg/dL Estim Creat Clear Calc TNP Estimated GFR > 60 Random Glucose 110 (60-115) mg/dL Calcium 9.6 D (8.4-10.2) mg/dL Total Bilirubin 0.7 (0.0-1.0) mg/dL Direct Bilirubin 0.3 (0.0-0.5) mg/dL AST 115 H (5-37) U/L ALT 169 H (0-40) U/L Alkaline Phosphatase 280 H (39-117) U/L Troponin I High Sens < 2.7 (<3.5-35.0) ng/L Total Protein 8.1 H (6.5-8.0) g/dL Albumin 4.5 (3.5-5.0) g/dL Lipase 35 (8-78) U/L COVID-19 (IA) Negative (Negative) COVID-19 Clin Com See Note Influenza Type A ([place]) Negative (Negative) Influenza Type B ([place]) Negative (Negative) Influenza A & B Note See Note 12/16/24 Range/Units 16:58 WBC (4.8-10.8) X10*3/uL RBC (4.60-5.80) X10*6/uL Hgb (14.0-18.0) g/dl Hct (42.0-52.0) % MCV (80.0-98.0) fL MCH (27.0-33.0) pg MCHC (31.0-36.0) g/dl RDW (11.0-16.0) % Plt Count (160-400) X10*3/uL MPV (9.4-12.4) fL Immature Gran % (Auto) (0.0-0.4) % Neut % (Auto) (45-73) % Lymph % (Auto) (20-40) % [place] % (Auto) (2-11) % Eos % (Auto) (0-4) % Baso % (Auto) (0-2) % Lymph # (Auto) (1.2-4.9) X10*3/uL [place] # (Auto) (0.1-1.2) X10*3/uL Eos # (Auto) (0.0-0.4) X10*3/uL Baso # (Auto) (0.0-0.2) X10*3/uL Abs Immat Gran (auto) (0.00-0.03) X10*3/uL Absolute Neuts (auto) (2.0-8.3) x10*3/uL Absolute Nucleated RBC (0.0-0.012) X10*3/uL Nucleated RBC % (auto) (0.0-0.2) /100WBC PT (10.9-12.4) SEC INR (0.9-1.1) Sodium (135-145) mmol/L Potassium (3.3-5.1) mmol/L Chloride (96-108) mmol/L Carbon Dioxide (22-29) mmol/L Anion Gap (12-20) BUN (9-16) mg/dL Creatinine (0.5-1.4) mg/dL Estim Creat Clear Calc Estimated GFR Random Glucose (60-115) mg/dL Calcium (8.4-10.2) mg/dL Total Bilirubin (0.0-1.0) mg/dL Direct Bilirubin (0.0-0.5) mg/dL AST (5-37) U/L ALT (0-40) U/L Alkaline Phosphatase (39-117) U/L Troponin I High Sens < 2.7 (<3.5-35.0) ng/L Total Protein (6.5-8.0) g/dL Albumin (3.5-5.0) g/dL Lipase (8-78) U/L COVID-19 (AI) (Negative) COVID-19 Clin Com Influenza Type A ([place]) (Negative) Influenza Type B ([place]) (Negative) Influenza A & B Note Independent Interpretation I performed an independent interpretation of an: EKG Interpretation: normal sinus rhythm with a rate of [address] segment elevations or depressions. Nondiagnostic EKG Radiology Impression Discussion of test interpretation with radiology: I have reviewed the radiologist's reading. Radiologist Impression: Impression: No diverticulitis or bowel obstruction. Possible small nonobstructive renal stones. Minimal infiltration of the peripancreatic fat may be incidental although minimal pancreatitis is a possibility. Mild wall thickening of the sigmoid colon and rectum likely lack of distention. Mild colitis/proctitis is technically a possibility. This document has been electronically signed by: Lenard Ortiz MD on 12/16/2024 19:51:22 Discharge Plan Discharge Clinical Impression: Abdominal pain Patient Disposition: Home, Self-Care Instructions: Acute Abdominal Pain (ED) Additional Instructions: your CT scan did not show any cause to explain your abdominal pain. Your pain is most likely related to a stomach ulcer or gastritis. I recommend that you follow up with GI continue the medication that was prescribed a few days ago Prescriptions: No Action ibuprofen 600 mg tablet 600 mg PO BID PRN (Reason: pain) 30 Days Qty: 30 0RF clonazepam 1 mg tablet 1 mg PO BEDTIME 14 Days Qty: 14 0RF Rx Instructions: administer 30 minutes before bedtime sertraline 50 mg tablet 50 mg PO DAILY 90 Days Qty: 90 1RF quetiapine [Seroquel] 50 mg tablet 50 mg PO BEDTIME 90 Days Qty: 90 1RF cholecalciferol (vitamin D3) 50 mcg (2,000 unit) capsule 50 mcg PO DAILY MDD 50mcg 90 Days Qty: 90 3RF Rx Instructions: take one capsule daily at bedtime testosterone 20.25 mg/1.25 gram (1.62 %) gel in metered-dose pump 2 pump topical DAILY 30 Days Qty: 75 1RF pyridoxine (vitamin B6) 50 mg tablet 50 mg PO DAILY Qty: 90 1RF bupropion HCl [Wellbutrin XL] 150 mg tablet extended release 24 hr 150 mg PO QAM 30 Days Qty: 30 3RF mecobalamin (vitamin B12) 1,000 mcg tablet,disintegrating 1,000 mcg sublingual BEDTIME MDD 1000mcg 90 Days Qty: 90 0RF Rx Instructions: place tablet under tongue and allow to dissolve for at least30 secs before swallowing omeprazole 20 mg capsule,delayed release(DR/EC) 20 mg PO BID MDD 40mg 30 Days Qty: 60 2RF Rx Instructions: Take one capsule by mouth in the AM and one capsule in the PM daily for GERD/ ACID Reflux. tamsulosin 0.4 mg capsule 0.8 mg PO DAILY 30 Days Qty: 30 0RF naproxen 500 mg tablet,delayed release (DR/EC) 500 mg PO BID PRN (Reason: pain) Qty: 14 0RF ondansetron 4 mg tablet,disintegrating 4 mg PO Q8H PRN (Reason: nausea and vomiting) Qty: 5 0RF omeprazole 40 mg capsule,delayed release(DR/EC) 40 mg PO DAILY Qty: 14 0RF ondansetron 4 mg tablet,disintegrating 4 mg PO Q6-8H PRN (Reason: nausea and vomiting) Qty: 7 0RF hydroxyzine HCl 25 mg tablet 25 mg PO QID melatonin 5 mg capsule 5 mg PO DAILY MDD 10mg 30 Days Qty: 30 3RF Rx Instructions: May take 1-2 capsules of melatonin every night to regulate sleep cycle. clonidine HCl 0.1 mg tablet 0.1 mg PO methadone 5 mg/0.5 mL syringe 5 mg PO DAILY tadalafil [Cialis] 5 mg tablet 5 mg PO DAILY Qty: 30 5RF Rx Instructions: [id number] [facility] [id number] Member [id number] USE COUPON not insurance Referrals: Primitivo Wood MD [Physician, Gastroenterology] Referral Note: upper abdominal pain Print Language: Czech
[2024-12-16 10:23] VITALS: BP 140/75; PULSE 96; RESP 18; TEMP 36.8; O2SAT 98
[2024-12-16 10:37] LABS: Troponin-I High Sensitivity < 2.7 ng/L (<3.5-35.0)
--- NOTE | 2024-12-16 10:41 | MHC.EDTECH ---
Patient brought into triage area,covid,and flu swabs collected and sent to lab
[2024-12-16 11:05] LABS: IDNOW Serial# 58CA691E; Influenza B2 Negative (Negative)
[2024-12-16 11:19] LABS: COVID-19 Test Negative (Negative); IDNOW Serial# 55D5AD1C
--- OUTSIDE RECORDS SUMMARY | 2024-12-16 13:28 | XMS_ITS | Patient Health Record ---
Author Organization [facility] Address [address] [place] [id number] Care Team Providers Care Team Leader Name Role Phone Stepan VINCENT, Ramesh Primary Care Provider Unavailab Bruce Malagon Unavailable [phone] Niru Shipley Unavailable Unavailable Reason For Referral [...] Status Risk Notes Problem Chronic hepatitis C (159752963) Chronic hepatitis C without mention of hepatic coma (070.54) Active confirmed Problem Irritable bowel syndrome (84785308) Irritable bowel syndrome (564.1) Active confirmed Problem Left upper quadrant pain (355156122) Abdominal pain, left upper quadrant (789.02) Active confirmed Problem Left lower quadrant pain (384612379) Abdominal pain, left lower quadrant (789.04) Active confirmed Problem Imaging of gastrointestinal tract abnormal (859051135) Nonspecific abnormal findings on radiological and other examination of gastrointestinal tract (793.4) Active confirmed Problem Constipation (52348368) Constipation (564.00) Active confirmed Problem 89448798 Abdominal pain, epigastric (R10.13) Active confirmed Problem 124213164 Gastroesophageal reflux disease, esophagitis presence not specified (K21.9) Active confirmed Plan Of Treatment Future Test Test Name Order Date UPPER GI ENDOSCOPY 12/10/2015 Insurance Providers Payer Name Payer Address Payer Phone Subscriber Number Group Number Insured Name Patient Relationship to Insured Coverage Start Date Coverage End Date MEDICARE OF [place] [address] [place], [place] [id number] PRICILA CHÁVEZ Self - patient is the insured [facility] [address] [place] [address] [id number] PRICILA CHÁVEZ Self - patient is the insured Medical (General) History Medical History History ICD Code Positive Hep C Ab, but neg H ep C viral load in 08/2011--normal LFT's in 08/2013--normal CT of abdomen in 04/2013 except for tiny kidney stones Kidney stones Denies AL,DM,CVA,Lung disease,renal dise ase Depression and anxiety GERD and abdominal pain--- angelina barnes had a normal CAT scan of the abdomen on December 01, 2015, and normal LFTs, CBC, and lipase in the emergency room substance abuse Surgical History Surgery Date(Month/Year) Appendectomy 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
[2024-12-16 17:12] LABS: Alanine Aminotransferase 169 U/L (0-40); Albumin Level 4.5 g/dL (3.5-5.0); Alkaline Phosphatase 280 U/L (39-117); Aspartate Amino Transferase 115 U/L (5-37); Lipase 35 U/L (8-78); Total Protein 8.1 g/dL (6.5-8.0)
[2024-12-16 17:30] LABS: Troponin-I High Sensitivity < 2.7 ng/L (<3.5-35.0)
[2024-12-16 17:32] VITALS: BP 132/66; PULSE 86; RESP 16; TEMP 37.2; O2SAT 99
[2024-12-16] MEDS: iohexoL 350 MG/ML 100 ML INFUS..BTL IV (17:56)
[2024-12-16] MEDS: Lidocaine HCl Viscous 2 % 15 ML SOLUTION MUCOUS MEM (20:03)
[2024-12-16] MEDS: Magnesium Hydrox/Alum Hydrox 30 ML ORAL.SUSP PO (20:03)
[2024-12-16 20:43] VITALS: BP 132/84; PULSE 78; RESP 16; TEMP 35.9; O2SAT 100
== END 2024-12-16 20:44 | disposition home or self-care (01) ==
PROVIDERS: Physician Assistant; Registered Nurse Emergency; Emergency Provider Student in an Organized Health Care Education/Training Program; PCP Physician Assistant
DX: R07.89 Other chest pain (principal); R11.2 Nausea with vomiting, unspecified; R10.2 Pelvic and perineal pain; Z79.899 Other long term (current) drug therapy; F17.210 Nicotine dependence, cigarettes, uncomplicated; Z11.52 Encounter for screening for COVID-19
CPT/HCPCS: 36415; 71045; 74177; 80048; 80076; 83690; 84484; 85025; 85610; 87502; 87635; 93005; 96361; 96374; 96376; 99285; J2405; Q9967

== ENCOUNTER → 2024-12-16 09:51 | Outpatient (BNV) | payer OTHER, SELFPAY | PROVIDERS: Emergency Provider Student in an Organized Health Care Education/Training Program; PCP Physician Assistant; Visit Provider Internal Medicine | DX: R07.9 Chest pain, unspecified (principal) | CPT/HCPCS: 93010 ==

== ENCOUNTER → 2024-12-16 10:46 | Outpatient (BNV) | payer OTHER, SELFPAY | PROVIDERS: PCP Physician Assistant; Visit Provider Radiology Diagnostic Radiology | DX: R10.9 Unspecified abdominal pain (principal); R07.9 Chest pain, unspecified | CPT/HCPCS: 71045; 74177 ==

== ENCOUNTER 2025-03-06 07:25 | Emergency (ER) | payer OTHER, SELFPAY ==
--- NOTE | ~2025-03-06 | XR_ITS ---
EXAMINATION: XR CHEST 2 VIEWS HISTORY: COUGH COMPARISON: Comparison is made with the prior examination dated 12/16/2024. FINDINGS: PA and lateral views of the chest are submitted. The lungs are expanded and clear. There is no pleural effusion, pneumothorax, or pulmonary vascular congestion. The heart is normal in size. There is degenerative disc disease of the spine. XR/XR chest 2V IMPRESSION: No acute cardiopulmonary abnormality. Electronically signed by: Bruce Wylie MD 03/06/2025 08:42 AM EST
[2025-03-06 07:27] VITALS: BP 168/80; PULSE 100; RESP 18; TEMP 37.1; O2SAT 97; BMI 29.1
--- NOTE | 2025-03-06 07:40 | MHC.EDTECH ---
nasal swabs done in triage area/sent.
[2025-03-06 08:00] LABS: IDNOW Serial# 55D5AD1C; Influenza B2 Negative (Negative)
[2025-03-06 08:03] LABS: COVID-19 Test Negative (Negative); IDNOW Serial# 58CA691E
--- OUTSIDE RECORDS SUMMARY | 2025-03-06 08:04 | XMS_ITS | Patient Health Record ---
Author Organization [facility] Address [address] [place] [id number] Care Team Providers Care Ice Crusher Name Role Phone Stepan VINCENT, Ramesh Primary Care Provider Unavailab Bruce Malagon Unavailable [phone] Niru Shipley Unavailable Unavailable Reason For Referral No Information Medications Medication SIG (Take, Route, Frequency, Duration) Notes Start Date End Date Status Stool Softener Capsule 2 capsules Orally Daily Active KlonoPIN 2 MG Tablet Orally Active Suboxone Active Omeprazole 20 MG Tablet Delayed Release 1 capsule Orally twice a day Active Social History Social History Additional Details Category Social Info Options Details Miscellaneous: Marital status: Occupation: unemployed Section Notes: Smokes; no alcohol; no drugs for 2 years Smokes; no alcohol; Substanc e abuse--reports last used cocaine in approx 04/2013 Smokes when he's anxious; no alcohol; Substance abuse--reports last used cocaine in approx 04/2013 Problems Problem Type SNOMED Code ICD Code Onset Dates Problem Status W/U Status Risk Notes Problem Chronic hepatitis C (558295371) Chronic hepatitis C without mention of hepatic coma (070.54) Active confirmed Problem Irritable bowel syndrome (88962152) Irritable bowel syndrome (564.1) Active confirmed Problem Left upper quadrant pain (432410693) Abdominal pain, left upper quadrant (789.02) Active confirmed Problem Left lower quadrant pain (458687268) Abdominal pain, left lower quadrant (789.04) Active confirmed Problem Imaging of gastrointestinal tract abnormal (592248381) Nonspecific abnormal findings on radiological and other examination of gastrointestinal tract (793.4) Active confirmed Problem Constipation (62857706) Constipation (564.00) Active confirmed Problem Epigastric pain (79085414) Abdominal pain, epigastric (R10.13) Active confirmed Problem Gastroesophageal reflux disease (748173575) Gastroesophageal reflux disease, esophagitis presence not specified (K21.9) Active confirmed Plan Of Treatment Future Test Test Name Order Date UPPER GI ENDOSCOPY 12/10/2015 Insurance Providers Payer Name Payer Address Payer Phone Subscriber Number Group Number Insured Name Patient Relationship to Insured Coverage Start Date Coverage End Date [place]ARE OF [place] [address] [place] [id number] PRICILA CHÁVEZ Self - patient is the insured MEDICAID [id number] [address] [place] [address] [id number] PRICILA CHÁVEZ Self - patient is the insured Medical (General) History Medical History History ICD Code Positive Hep C Ab, but neg H ep C viral load in 08/2011--normal LFT's in 08/2013--normal CT of abdomen in 04/2013 except for tiny kidney stones Kidney stones Denies NV,DM,CVA,Lung disease,renal dise ase Depression and anxiety GERD and abdominal pain--- angelina barnes had a normal CAT scan of the abdomen on December 01, 2015, and normal LFTs, CBC, and lipase in the emergency room substance abuse Surgical History Surgery Date(Month/Year) Appendectomy 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
--- NOTE | 2025-03-06 08:15 | ED.URI ---
HPI - URI/Sore Throat General Chief Complaint: Upper Respiratory Symptoms Stated Complaint: chest pain, body aches, cough Time Seen by Provider: 03/06/25 07:47 Source: patient Mode of arrival: ambulatory Limitations: no limitations History of Present Illness ED Provider: NITIN MCKEON PA-C HPI Narrative: 49 year old male with pmhx significant for IVDU, nephrolithiasis, depression and anxiety presents to the ED today for evaluation of upper respiratory symptoms x3-4 days. Patient reports developing chest pain, runny nose, body aches, and fever that have been constant since onset. Tmax 102F.He has been taking tylenol and ibuprofen with temporary relief of his fever. His last dose was last night. His mother is at home with similar symptoms. Denies sore throat, SOB, eye pain, vision changes, ear pain, hearing changes, headache, lightheadedness, dizziness. He also reports discomfort with urination that started around the same time. Denies back pain, hematuria, abdominal pain, N/V/D. Additionally reports that 5 days ago he intentionally cut his L arm with a cheryl blade, stating he was going through something and just did it. No SI/HI. No plan to harm himself. He is not UTD on his tetanus vaccination and is also requesting to receive this at this time. Denies joint pain. Related Data Home Medications ?Medication ?Instructions ?Recorded ?Confirmed hydroxyzine HCl 25 mg tablet 25 mg PO QID 05/10/23 08/22/24 clonidine HCl 0.1 mg tablet 0.1 mg PO 05/08/24 08/22/24 methadone 5 mg/0.5 mL oral syringe 5 mg PO DAILY 05/08/24 08/22/24 (FOR ORAL USE ONLY) Previous Rx's ?Medication ?Instructions ?Recorded ibuprofen 600 mg tablet 600 mg PO BID PRN pain 30 days #30 04/02/23 tabs ondansetron 4 mg disintegrating 4 mg PO Q6-8H PRN nausea and 06/07/23 tablet vomiting #7 tabs clonazepam 1 mg tablet 1 mg PO BEDTIME 14 days #14 tabs 12/27/23 melatonin 5 mg capsule 5 mg PO DAILY Insomnia 30 days #30 04/24/24 caps sertraline 50 mg tablet 50 mg PO DAILY 90 days #90 tabs 05/12/24 naproxen 500 mg tablet,delayed 500 mg PO BID PRN pain #14 tabs 06/16/24 release tadalafil 5 mg tablet (Cialis) 5 mg PO DAILY #30 tabs 06/27/24 cholecalciferol (vitamin D3) 50 50 mcg PO DAILY low vit d 90 days 08/28/24 mcg (2,000 unit) capsule #90 caps testosterone 2 pump topical DAILY low 08/29/24 testosterone 30 days #75 grams pyridoxine (vitamin B6) 50 mg 50 mg PO DAILY #90 tabs 09/16/24 tablet mecobalamin (vitamin B12) 1,000 1,000 mcg sublingual BEDTIME b12 09/26/24 mcg disintegrating deficient 90 days #90 tabs tablet,sublingual omeprazole 20 mg capsule,delayed 20 mg PO BID GERD 1 month #60 caps 11/12/24 release tamsulosin 0.4 mg capsule 0.8 mg (2 x 0.4 mg) PO DAILY 30 11/19/24 days #30 caps omeprazole 40 mg capsule,delayed 40 mg PO DAILY #14 caps 12/13/24 release ondansetron 4 mg disintegrating 4 mg PO Q8H PRN nausea and 12/13/24 tablet vomiting #5 tabs bupropion HCl 150 mg 24 hr tablet, 150 mg PO QAM 30 days #30 tabs 12/31/24 extended release (Wellbutrin XL) quetiapine 50 mg tablet (Seroquel) 50 mg PO BEDTIME 90 days #90 tabs 02/26/25 benzonatate 100 mg capsule 100 mg PO BID PRN cough #20 caps 03/06/25 doxycycline hyclate 100 mg capsule 100 mg PO DAILY 7 days #7 caps 03/06/25 Allergies Allergy/AdvReac Type Severity Reaction Status Date / Time No Known Allergies (No Known Allergy Verified 03/06/25 07:28 Allergies*) Review of Systems Review of Systems: Yes all other systems are reviewed and are negative PMFSH Past Medical History Attestation statement: The following information was validated with the patient. Source: old records reviewed and nursing notes reviewed Medical History Left ankle injury Back pain Coarse tremors Elevated liver enzymes Panic disorder Surgical History History of appendectomy Family History Family History Mother No problems noted. Father Prostate cancer Paternal Grandfather Prostate cancer Social History Social History Housing: House Alcohol intake: never Patient Tobacco Use Status: Current everyday Tobacco user Tobacco use type: Cigarette Cigarettes Per Day: 4 e-Cigarette/Vaping Use: Never Used Second Hand Smoke Exposure: Yes Substance Use Type: Crack/Cocaine Advance Directives: No Advance Directives Information Provided: Yes service: No Current occupational status: disabled Cognitive needs: No Hearing needs: No Vision needs: Yes (Glasses) Physical Exam Vital Signs: Vital Signs: Last Vital Signs Temp 98.8 F 03/06/25 09:46 Pulse 90 03/06/25 09:46 Resp 18 03/06/25 09:46 BP 147/89 H 03/06/25 09:46 Pulse Ox 98 03/06/25 09:46 O2 Del Method Room Air 03/06/25 09:46 BMI result Body Mass Index 29.1 Hypertensive and tachycardic, vitals otherwise WNL. General: ill appearing, in no acute distress. Skin: Multiple superficial lacerations on the left forearm with well healing scabs. No surrounding erythema, edema, or drainage. Warm, dry. No rashes. Head: Normocephalic, atraumatic. EENT: Hearing is intact b/l. Conjunctiva clear. Sclera is anicteric. PERRLA. EOM intact. Moist mucous membranes.?Tonsilar pillars symmetrical and without erythema or swelling. uvula midline, controlling secretions, speaking in complete sentences. no muffled voice. Neck: Supple without LAD Cardiac: Chest wall symmetric. RRR Lungs: Normal respiratory effort without accessory muscle use. CTA bilaterally Abdomen: Soft, non-tender, non-distended. No rebound tenderness or guarding. Positive BS x4. Back: No midline spinous or paraspinal tenderness. No step off deformity. Ext: +see photos of LUE below. superficial lacerations noted to dorsal and ventral aspect of L forearm consistent w/ self harm. minimal surrounding erythema. no streaking up LUE. no palpable warmth/fluctuance. no joint pain/swelling. FROM intact to L elbow, wrist, digits. 2+radial pulse intact. Neuro: AOx3. Normal speech. Ambulating with steady gait. Course Course Course Narrative: Patient tested positive for influenza A. Negative COVID. Chest x-ray does not demonstrate pneumonia. Urine without infection. Given symptoms began 3-4 days ago, patient is out of the window for Tamiflu administration. Regarding self-harm miranda to left forearm, they are slightly erythematous, there is no streaking to suggest lymphangitis. I do not feel as though this is the cause of patient's current symptoms. Will start him on a course of doxycycline. His tetanus was updated today. He denies any SI or HI at this time. No plan to harm himself further. Patient has remained stable throughout ED visit today. Discussed worrisome signs and symptoms and when to return to the ED. All questions answered at this time. Patient is agreeable with disposition and stable for discharge. Medications Administered Discontinued Medications Generic Name Dose Route Start Last Admin Trade Name Freq PRN Reason Stop Dose Admin Diphtheria/Tetanus/Acell Pertussis 0.5 ml 03/06/25 08:12 03/06/25 08:55 Diphth,Pertus(Acell),Tet Adult 0.5 Ml Syringe IM 03/06/25 08:13 0.5 ml .ONCE ONE Administration Doxycycline Monohydrate 100 mg 03/06/25 09:22 03/06/25 09:36 Doxycycline Monohydrate 100 Mg Capsule PO 03/06/25 09:23 100 mg ONCE ONE Administration Ibuprofen 600 mg 03/06/25 09:22 03/06/25 09:35 Ibuprofen 600 Mg Tablet PO 03/06/25 09:23 600 mg ONCE ONE Administration Medical Decision Making Medical Decision Making MDM Narrative: 49 year old male with pmhx significant for IVDU, nephrolithiasis, depression and anxiety presents to the ED today for evaluation of upper respiratory symptoms x3-4 days. patient is hypertensive, vitals are otherwise wnl. he is well appearing, in NAD. on exam, no respiratory distress, lungs clear. tonsilar pillars symmetrical and without erythema or swelling. uvula midline, controlling secretions, speaking in complete sentences. no muffled voice. superficial lacerations noted to dorsal and ventral aspect of L forearm consistent w/ self harm. minimal surrounding erythema. no streaking up LUE. no palpable warmth/fluctuance. no joint pain/swelling. FROM intact to L elbow, wrist, digits. 2+radial pulse intact. Differential diagnosis includes viral syndrome, pneumonia, cellulitis, urinary tract infection Unlikely endocarditis, lymphangitis, septic emboli. Plan for viral swabs, cxr, re-eval. Differential Diagnosis Differential Diagnoses: The differential diagnosis associated with the presentation includes as above. Admission/Observation not indicated. Lab Data MDM Lab Attestation statement: I reviewed the patient's lab results. as above. Labs: Lab Results 03/06/25 03/06/25 Range/Units 07:35 09:08 Urine Color Yellow Urine Appearance Clear Urine pH 8.5 (5.0-9.0) Ur Specific [place] 1.015 (1.005-1.025) Urine Protein Negative (Neg-Trace) mg/dL Urine Glucose (UA) Negative (Negative) mg/dL Urine Ketones Negative (Negative) mg/dL Urine Blood Negative (Negative) Urine Nitrite Negative (Negative) Ur Leukocyte Esterase Negative (Negative) COVID-19 (AI) Negative (Negative) COVID-19 Clin Com See Note Influenza Type A ([facility]) Positive A (Negative) Influenza Type B ([facility]) Negative (Negative) Influenza A & B Note See Note Independent Interpretation I performed an independent interpretation of an: Plain X-Ray Interpretation: cxr without infiltrate or consolidation Radiology Impression Discussion of test interpretation with radiology: I have reviewed the radiologist's reading. Radiologist Impression: Procedure(s): XR chest 2V Accession Number(s): [id number] cc: Regan Ballesteros MD; Contreras Nielson PA-C~ Reason for Exam: COUGH EXAMINATION: XR CHEST 2 VIEWS HISTORY: COUGH COMPARISON: Comparison is made with the prior examination dated 12/16/2024. FINDINGS: PA and lateral views of the chest are submitted. The lungs are expanded and clear. There is no pleural effusion, pneumothorax, or pulmonary vascular congestion. The heart is normal in size. There is degenerative disc disease of the spine. XR/XR chest 2V IMPRESSION: No acute cardiopulmonary abnormality. Electronically signed by: Bruce Wylie MD 03/06/2025 08:42 [place] [facility] [place] External record reviewed: Inpatient record Prescription Management I considered prescription management with: Antibiotic ( doxycycline) and Other ( Tessalon Perles) Chronic Conditions Patient?s care impacted by: Other (IVDU) Social Determinants Patient?s care significantly limited by Social Determinants of Health including: Other Social Determinant of Health Critical Care Time Critical Care Time Critical Care Time: No Discharge Plan Discharge Clinical Impression: Influenza A, Intentional self-harm Patient Disposition: Home, Self-Care Instructions: Influenza (ED) Additional Instructions: You tested positive for influenza A. Chest x-ray was normal - no evidence of pneumonia. Your urine is not infected. Influenza is a virus. You do not need to be treated with antibiotics. Alternate tylenol/motrin at home for fever/ body aches. Follow up with your PCP. Return with any new or worsening symptoms. In the case of an emergency call 911. In terms of the cuts on your left arm - they appear only mildly infected. I am starting you on doxycycline. Take this as prescribed over the next 7 days. Your tetanus shot was updated today as well. Prescriptions: New doxycycline hyclate 100 mg capsule 100 mg PO DAILY 7 Days Qty: 7 0RF benzonatate 100 mg capsule 100 mg PO BID PRN (Reason: cough) Qty: 20 0RF No Action ibuprofen 600 mg tablet 600 mg PO BID PRN (Reason: pain) 30 Days Qty: 30 0RF clonazepam 1 mg tablet 1 mg PO BEDTIME 14 Days Qty: 14 0RF Rx Instructions: administer 30 minutes before bedtime sertraline 50 mg tablet 50 mg PO DAILY 90 Days Qty: 90 1RF cholecalciferol (vitamin D3) 50 mcg (2,000 unit) capsule 50 mcg PO DAILY MDD 50mcg 90 Days Qty: 90 3RF Rx Instructions: take one capsule daily at bedtime testosterone 20.25 mg/1.25 gram (1.62 %) gel in metered-dose pump 2 pump topical DAILY 30 Days Qty: 75 1RF pyridoxine (vitamin B6) 50 mg tablet 50 mg PO DAILY Qty: 90 1RF mecobalamin (vitamin B12) 1,000 mcg tablet,disintegrating 1,000 mcg sublingual BEDTIME MDD 1000mcg 90 Days Qty: 90 0RF Rx Instructions: place tablet under tongue and allow to dissolve for at least30 secs before swallowing omeprazole 20 mg capsule,delayed release(DR/EC) 20 mg PO BID MDD 40mg 30 Days Qty: 60 2RF Rx Instructions: Take one capsule by mouth in the AM and one capsule in the PM daily for GERD/ ACID Reflux. tamsulosin 0.4 mg capsule 0.8 mg PO DAILY 30 Days Qty: 30 0RF bupropion HCl [Wellbutrin XL] 150 mg tablet extended release 24 hr 150 mg PO QAM 30 Days Qty: 30 3RF quetiapine [Seroquel] 50 mg tablet 50 mg PO BEDTIME 90 Days Qty: 90 1RF naproxen 500 mg tablet,delayed release (DR/EC) 500 mg PO BID PRN (Reason: pain) Qty: 14 0RF ondansetron 4 mg tablet,disintegrating 4 mg PO Q8H PRN (Reason: nausea and vomiting) Qty: 5 0RF omeprazole 40 mg capsule,delayed release(DR/EC) 40 mg PO DAILY Qty: 14 0RF ondansetron 4 mg tablet,disintegrating 4 mg PO Q6-8H PRN (Reason: nausea and vomiting) Qty: 7 0RF hydroxyzine HCl 25 mg tablet 25 mg PO QID melatonin 5 mg capsule 5 mg PO DAILY MDD 10mg 30 Days Qty: 30 3RF Rx Instructions: May take 1-2 capsules of melatonin every night to regulate sleep cycle. clonidine HCl 0.1 mg tablet 0.1 mg PO methadone 5 mg/0.5 mL syringe 5 mg PO DAILY tadalafil [Cialis] 5 mg tablet 5 mg PO DAILY Qty: 30 5RF Rx Instructions: [id number] Member [id number] USE COUPON not insurance Referrals: Contreras Nielson PA-C [Primary Care Provider, Internal Medicine] Interventions: ED Discharge Assessment Last Done: 03/06/25 09:46 Discharge Date/Time: 03/06/25 09:47 Print Language: Lithuanian
[2025-03-06] MEDS: Diphth,Pertus(ACell),Tet Adult 0.5 ML SYRINGE IM (08:55)
[2025-03-06 09:15] LABS: Appearance Urine Clear; Glucose Urine UA Negative (Negative); PH 8.5 (5.0-9.0); Specific Gravity - Urine 1.015 (1.005-1.025)
[2025-03-06 09:21] VITALS: BP 147/89; PULSE 90; RESP 18; TEMP 37.1; O2SAT 98
[2025-03-06 09:46] VITALS: BP 147/89; PULSE 90; RESP 18; TEMP 37.1; O2SAT 98
== END 2025-03-06 09:47 | disposition home or self-care (01) ==
PROVIDERS: Physician Assistant Medical; Emergency Provider Emergency Medicine; PCP Physician Assistant
DX: J10.1 Influenza due to other identified influenza virus with other respiratory manifestations (principal); S51.812A Laceration without foreign body of left forearm, initial encounter; I10 Essential (primary) hypertension; X78.8XXA Intentional self-harm by other sharp object, initial encounter; Y93.89 Activity, other specified; Y92.89 Other specified places as the place of occurrence of the external cause; Y99.8 Other external cause status; Z72.0 Tobacco use
CPT/HCPCS: 71046; 81003; 87502; 87635; 90471; 90715; 99283; 99284

== ENCOUNTER → 2025-03-06 07:31 | Outpatient (BNV) | payer OTHER, SELFPAY | PROVIDERS: Emergency Provider Emergency Medicine; PCP Physician Assistant; Visit Provider Radiology Diagnostic Radiology | DX: R05.9 Cough, unspecified (principal) | CPT/HCPCS: 71046 ==

== ENCOUNTER 2025-03-11 15:26 | Outpatient (AMB) | payer OTHER, SELFPAY ==
--- NOTE | 2025-03-11 15:48 | MHC.PC.OV ---
Vital Signs 03/11/25 15:50 Height 5 ft 5 in Weight 182 lb 2 oz BMI 30.3 BP 130/70 Blood Pressure Location Lt brachial Position Sitting Pulse 88 Pulse Source Pulse Oximeter Temp 97.3 F Temp Source Temporal Artery Scan Pulse Oximetry (%) 98 Oxygen Delivery Method Room Air Intake Visit Re[place] [facility] [place] Intake Note: Patient is here to follow-up after a visit the emergency department at [facility] [place] 03/06/25 Environmental Systems Coordinator Required: No Manager Social Responsibility: Not Required per policy Accompanied by: Self / Same As Patient Allergies No Known Allergies (No Known Allergies*) Allergy (Verified 03/11/25 16:19) Medication List - Last Reconciled 03/11/25 by Shayla Virk MD benzonatate 100 mg PO BID PRN bupropion HCl XL (Wellbutrin XL) 150 mg PO QAM 30 days cholecalciferol (vitamin D3) 50 mcg PO DAILY 90 days MDD 50mcg clonazepam 1 mg PO BEDTIME 14 days clonidine HCl 0.1 mg PO doxycycline hyclate 100 mg PO DAILY 7 days hydroxyzine HCl 25 mg PO QID ibuprofen 600 mg PO BID PRN 30 days mecobalamin (vitamin B12) 1,000 mcg sublingual BEDTIME 90 days MDD 1000mcg melatonin 5 mg PO DAILY 30 days MDD 10mg methadone 5 mg PO DAILY naproxen 500 mg PO BID PRN omeprazole 40 mg PO DAILY omeprazole 20 mg PO BID 1 month MDD 40mg ondansetron 4 mg PO Q6-8H PRN ondansetron 4 mg PO Q8H PRN pyridoxine (vitamin B6) 50 mg PO DAILY quetiapine (Seroquel) 50 mg PO BEDTIME 90 days sertraline 50 mg PO DAILY 90 days tadalafil (Cialis) 5 mg PO DAILY tamsulosin 0.8 mg (2 x 0.4 mg) PO DAILY 30 days testosterone 2 pumps topical DAILY 30 days Tobacco use date assessed: 03/11/25 Dental Screening Dental Screen Date: 06/21/24 HPI HPI Comments History of Present Illness Details The patient is a 49 year old male presenting for follow-up on his recent influenza infection and for medication management. He reports he is feeling better from the influenza. He has finished his course of doxycycline. The patient has a history of depression and anxiety, for which he takes multiple medications including bupropion, Seroquel, and sertraline. He does not currently see a psychiatrist. His testosterone was previously prescribed by a urologist, but he is now out of refills and has not seen the urologist recently. Other medications mentioned include vitamin D, clonidine, vitamin B12, melatonin, methadone, naproxen, Cialis, and tamsulosin. He has no known drug allergies. [facility] Medical History (Updated 03/11/25 @ 16:27 by Shayla Virk MD) Left ankle injury Back pain Coarse tremors Elevated liver enzymes Panic disorder Surgical History History of appendectomy Family History Mother No problems noted. Father Prostate cancer Paternal Grandfather Prostate cancer Social History Housing: House Alcohol intake: never Patient Tobacco Use Status: Former Tobacco user Tobacco use type: Cigarette Cigarettes Per Day: 4 e-Cigarette/Vaping Use: Never Used Second Hand Smoke Exposure: Yes Substance Use Type: Crack/Cocaine service: No Current occupational status: disabled Cognitive needs: No Hearing needs: No Vision needs: Yes (Glasses) Questionnaire Thrive Questionnaire Date Thrive assessed: 06/21/24 JIMENEZ-7 AMB Questionnaire JIMENEZ-7 Date JIMENEZ - 7 assessed: 05/13/24 Source: Developed by Drs. Bruce Aguayo, Tracey Orlando, Ori Connell and colleagues, with an educational kyle from [employer]. Review of Systems Const All systems reviewed & are unremarkable except as noted in HPI and below Card Denies chest pain at rest, Denies chest pain with activity, Denies edema, Denies irregular heart rhythm, Denies claudication, Denies dyspnea, Denies dyspnea on exertion, Denies orthopnea, Denies paroxysmal nocturnal dyspnea and Denies slow heart rate Resp Denies cough, Denies dyspnea and Denies dyspnea on exertion GI Denies abdominal pain, Denies change in bowel habits, Denies excessive flatus, Denies nausea and Denies vomiting Physical exam (Primary Care) Vital Signs: Last Vital Signs Temp 97.3 F 03/11/25 15:50 Pulse 88 03/11/25 15:50 BP 130/70 03/11/25 15:50 Pulse Ox 98 03/11/25 15:50 Oxygen Delivery Method Room Air 03/11/25 15:50 BMI result Body Mass Index 30.3 BMI Assessment/Plan discussion: High BMI High, discussed plan: lifestyle, weight reduction, dietary and physical activity Tobacco/Smoking Status: Tobacco use Status Tobacco use date assessed 03/11/25 03/11/25 15:55 Patient Tobacco Use Status Former Tobacco user 03/11/25 15:55 Tobacco use type Cigarette 03/11/25 15:55 e-Cigarette/Vaping Use Never Used 03/11/25 15:55 Thrive Assessment: Date of Thrive Assessment Date Thrive assessed 06/21/24 03/11/25 15:55 Resp Effort & Inspection: normal respiratory effort Auscultation: clear to auscultation bilaterally Cardio Jugular venous distension: no JVD Rate: regular rate Rhythm: regular rhythm Heart sounds: S1 normal heart sound present and S2 normal heart sound present Extrem General: Yes full ROM Coding Level of Care Code Est Pt Level 3 (78116) Diagnoses Mild recurrent major depression F33.0 JIMENEZ (generalized anxiety disorder) F41.1 Nephrolithiasis N20.0 Erectile dysfunction N52.9 Time Spent (min) 19 Assessment & Plan Assessment & Plan (1) Mild recurrent major depression: Code(s): F33.0 - Major depressive disorder, recurrent, mild Category: Medical (2) JIMENEZ (generalized anxiety disorder): Code(s): F41.1 - Generalized anxiety disorder Category: Medical (3) Nephrolithiasis: Code(s): N20.0 - Calculus of kidney Category: Medical (4) Erectile dysfunction: Code(s): N52.9 - Male erectile dysfunction, unspecified Category: Medical Plan Plan 1. Testosterone Deficiency The patient is out of testosterone, which was previously prescribed by his urologist. He will be advised to contact his urology office for refills as a referral is not needed. 2. Depression And Anxiety The patient endorses a history of depression and anxiety and is on multiple psychotropic medications. He does not have a psychiatrist. A referral will be sent for psychiatry. 3. Fatigue Labs ordered. Orders: Orders HIV Ab/Ag Today Z11.4 - Encounter for screening for human immunodeficiency virus [HIV] Complete Blood Count Auto Diff Today D64.9 - Anemia, unspecified Referrals Psychiatry Outpatient Consultation Service F33.0 - Major depressive disorder, recurrent, mild, F41.1 - Generalized anxiety disorder
[2025-03-11 15:50] VITALS: BP 130/70; PULSE 88; TEMP 36.3; O2SAT 98; BMI 30.3
== END 2025-03-11 16:35 | disposition home or self-care (01) ==
LOC: HO.HMCH 15:26
PROVIDERS: PCP Physician Assistant; Visit Provider Internal Medicine
DX: F33.0 Major depressive disorder, recurrent, mild (principal); F41.1 Generalized anxiety disorder; N20.0 Calculus of kidney; N52.9 Male erectile dysfunction, unspecified

== ENCOUNTER 2025-03-11 15:26 | Outpatient (REF) | payer OTHER, SELFPAY ==
[2025-03-11 16:52] LABS: MANUAL DIFF FLAG NO
[2025-03-11 17:04] LABS: Hematocrit 43.9 % (42.0-52.0); Hemoglobin 14.5 g/dl (14.0-18.0); Imm Gran Abs Auto 0.01 X10*3/uL (0.00-0.03); Imm Gran Pct Auto 0.2 % (0.0-0.4); Lymphocytes Absolute Auto 2.2 X10*3/uL (1.2-4.9); Mean Corpuscular HGB Conc 33.0 g/dl (31.0-36.0); Mean Corpuscular Hemoglobin 30.1 pg (27.0-33.0); Mean Corpuscular Volume 91.3 fL (80.0-98.0); NRBC Abs Auto 0.000 X10*3/uL (0.0-0.012); NRBC Pct Auto 0.0 /100WBC (0.0-0.2); Platelet Count 238 X10*3/uL (160-400); Red Blood Count 4.81 X10*6/uL (4.60-5.80); White Blood Count 5.0 X10*3/uL (4.8-10.8)
== END 2025-03-11 15:27 | disposition home or self-care (01) ==
LOC: HO.LAB 15:26
PROVIDERS: PCP Physician Assistant; Visit Provider Internal Medicine
DX: Z11.4 Encounter for screening for human immunodeficiency virus [HIV] (principal); F33.0 Major depressive disorder, recurrent, mild; F41.1 Generalized anxiety disorder; D64.9 Anemia, unspecified; N20.0 Calculus of kidney; N52.9 Male erectile dysfunction, unspecified
CPT/HCPCS: 36415; 85025; 87389; 99212

== ENCOUNTER 2025-04-02 10:34 | Outpatient (REF) | payer OTHER, SELFPAY ==
--- OUTSIDE RECORDS SUMMARY | 2025-04-02 11:48 | XMS_ITS | Patient Health Record ---
Author Organization [facility] Address [address] [place] [id number] Care Team Providers Care Field Installation Technician Name Role Phone Stepan VINCENT, Ramesh Primary Care Provider Unavailab Bruce Malagon Unavailable [phone] Niru Shipley Unavailable Unavailable Reason For Referral [...] Status Risk Notes Problem Chronic hepatitis C (446115502) Chronic hepatitis C without mention of hepatic coma (070.54) Active confirmed Problem Irritable bowel syndrome (70204749) Irritable bowel syndrome (564.1) Active confirmed Problem Left upper quadrant pain (224240714) Abdominal pain, left upper quadrant (789.02) Active confirmed Problem Left lower quadrant pain (706823089) Abdominal pain, left lower quadrant (789.04) Active confirmed Problem Imaging of gastrointestinal tract abnormal (030245027) Nonspecific abnormal findings on radiological and other examination of gastrointestinal tract (793.4) Active confirmed Problem Constipation (78320383) Constipation (564.00) Active confirmed Problem Epigastric pain (64502945) Abdominal pain, epigastric (R10.13) Active confirmed Problem Gastroesophageal reflux disease (275380963) Gastroesophageal reflux disease, esophagitis presence not specified (K21.9) Active confirmed Plan Of Treatment Future Test Test Name Order Date UPPER GI ENDOSCOPY 12/10/2015 Insurance Providers Payer Name Payer Address Payer Phone Subscriber Number Group Number Insured Name Patient Relationship to Insured Coverage Start Date Coverage End Date MEDICARE OF [place] [address] [place] [id number] PRICILA CHÁVEZ Self - patient is the insured [facility] [address] [place] [address] [id number] PRICILA CHÁVEZ Self - patient is the insured Medical (General) History Medical History History ICD Code Positive Hep C Ab, but neg H ep C viral load in 08/2011--normal LFT's in 08/2013--normal CT of abdomen in 04/2013 except for tiny kidney stones Kidney stones Denies VT,DM,CVA,Lung disease,renal dise ase Depression and anxiety GERD and abdominal pain--- angelina barnes had a normal CAT scan of the abdomen on December 01, 2015, and normal LFTs, CBC, and lipase in the emergency room substance abuse Surgical History Surgery Date(Month/Year) Appendectomy 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
[2025-04-02 12:06] LABS: Appearance Urine Clear; Glucose Urine UA Negative (Negative); PH 6.0 (5.0-9.0); Specific Gravity - Urine 1.015 (1.005-1.025)
== END 2025-04-02 10:35 | disposition home or self-care (01) ==
LOC: HO.LAB 10:34
PROVIDERS: PCP Physician Assistant; Visit Provider Urology
DX: R30.9 Painful micturition, unspecified (principal)
CPT/HCPCS: 81001; 87086